=== PATIENT | female | born 1965 | race Caucasian/White ===

== ENCOUNTER 2020-11-25 11:11 | Outpatient (REF) | payer OTHER, SELFPAY | END 2020-11-25 11:12 | disposition home or self-care (01) | LOC: HO.LAB 11:11 | PROVIDERS: PCP Internal Medicine; Visit Provider Internal Medicine | DX: Z20.822 Contact with and (suspected) exposure to COVID-19 (principal) | CPT/HCPCS: C9803; U0003; U0005 ==

== ENCOUNTER 2022-01-31 14:10 | Emergency (ER) | payer OTHER, SELFPAY ==
[2022-01-31 15:57] VITALS: BP 135/96; PULSE 88; RESP 18; TEMP 36.4; O2SAT 96; BMI 25.7
--- NOTE | 2022-01-31 15:59 | ED.GENADULT ---
HPI - General Adult General Chief complaint: General Medical <ROSALINDA Edgar Last Filed: 01/31/22 16:00> Stated complaint: boil removal <ROSALINDA Edgar Last Filed: 01/31/22 16:00> Time Seen by Provider: 01/31/22 16:13 <ROSALINDA Edgar Last Filed: 01/31/22 16:00> Source: patient <ROSALINDA Edgar Last Filed: 01/31/22 16:00> Mode of arrival: ambulatory <ROSALINDA Edgar Last Filed: 01/31/22 16:00> Limitations: no limitations <ROSALINDA Edgar Last Filed: 01/31/22 16:00> History of Present Illness HPI narrative: 48-year-old female with no significant past medical history presenting to the ED complaining boil to left buttocks x1 week. Denies drainage from area, fever/chills, difficulty/inability to have BM or urinate, hematuria, bloody BMs, abdominal pain <ROSALINDA Mustafa Last Filed: 01/31/22 19:11> Onset (ago): week(s) <ROSALINDA Mustafa Last Filed: 01/31/22 19:11> Related Data Home medications: Previous Rx's Medication Instructions Recorded cephalexin 500 mg capsule 500 mg PO QID 7 days #28 caps 01/31/22 doxycycline hyclate 100 mg tablet 100 mg PO BID 7 days #14 tabs 01/31/22 <ROSALINDA Edgar Last Filed: 01/31/22 16:00> Allergies/adverse reactions: Allergies Allergy/AdvReac Type Severity Reaction Status Date / Time erythromycin base Allergy Unknown VOMITING Unverified 11/22/19 17:01 [ERYTHROMYCIN BASE] <ROSALINDA Edgar Last Filed: 01/31/22 16:00> Review of Systems Review of Systems: Constitutional: No Fever, No Chills,No Fatigue, No Malaise ENT/Mouth: No Ear Pain, No Nasal Congestion, No sore throat, No Rhinorrhea, No Swallowing Difficulty Eyes: No Eye Pain, No Swelling, No Redness, No Vision Changes Cardiovascular: No Chest Pain, No SOB, No Edema, No Palpitations Respiratory: No Cough, No Dyspnea Gastrointestinal: No Nausea, No Vomiting, No Constipation, No Abdominal pain Genitourinary: No irregular bleeding, No Dysuria, No Hematuria, No Flank Pain, No Urinary Flow Changes Musculoskeletal: No joint pain, No Myalgias, No Joint Swelling Skin: + Skin Lesions, No rash Neuro: No Weakness, No Numbness, No Paresthesias, No Loss of Consciousness, No Dizziness, No Headache <ROSALINDA Mustafa Last Filed: 01/31/22 19:11> Yes all other systems are reviewed and are negative <ROSALINDA Mustafa Last Filed: 01/31/22 19:11> Constitutional: Constitutional: Reports as per HPI <ROSALINDA Mustafa Last Filed: 01/31/22 19:11> [facility] Past Medical History Attestation statement: The following information was validated with the patient. <ROSALINDA Mustafa Last Filed: 01/31/22 19:11> Social History Social History: Social History Alcohol intake: former Smoked in Last 30 Days: Yes Advance Directives: No Advance Directives Information Provided: No Patient : No <ROSALINDA Edgar Last Filed: 01/31/22 16:00> Physical Exam ED Vital Signs: Vital Signs - 24 hr 01/31/22 15:57 Temperature 97.6 F Pulse Rate 88 Respiratory Rate 18 Blood Pressure 135/96 H Pulse Oximetry 96 Oxygen Delivery Method Room Air BMI result Body Mass Index 25.7 <ROSALINDA Edgar Last Filed: 01/31/22 16:00> Vital Signs - 24 hr 01/31/22 15:57 Temperature 97.6 F Pulse Rate 88 Respiratory Rate 18 Blood Pressure 135/96 H Pulse Oximetry 96 Oxygen Delivery Method Room Air BMI result Body Mass Index 25.7 <ROSALINDA Mustafa Last Filed: 01/31/22 19:11> Const General: cooperative, healthy appearing and no acute distress <ROSALINDA Mustafa Last Filed: 01/31/22 19:11> Orientation/consciousness: patient oriented x3 <ROSALINDA Mustafa Last Filed: 01/31/22 19:11> Limitations: no limitations <ROSALINDA Mustafa Last Filed: 01/31/22 19:11> HENMT Head: Yes normal to inspection and Yes atraumatic <Lizbeth Greenwoodliliam [place] - Last Filed: 01/31/22 19:11> Ears: hearing grossly normal bilaterally <Lizbeth Greenwoodliliam [place] - Last Filed: 01/31/22 19:11> General nose exam: Normal external nose present <Lizbeth Timoliliam [facility] Last Filed: 01/31/22 19:11> Face and sinus: Yes normal facial exam <Lizbeth Greenwoodliliam [facility] Last Filed: 01/31/22 19:11> Eyes General: appearance normal, both eyes and all related structures <Lizbeth Timoliliam [facility] Last Filed: 01/31/22 19:11> EOM: EOMs intact bilaterally <Lizbeth Greenwoodliliam [facility] Last Filed: 01/31/22 19:11> Neck Neck: Yes normal visual inspection and Yes no meningeal signs <Lizbeth Timoliliam [place] - Last Filed: 01/31/22 19:11> Resp Effort & Inspection: normal respiratory effort and no respiratory distress <Lizbeth Greenwoodliliam [facility] Last Filed: 01/31/22 19:11> Cardio Rate: regular rate <Lizbeth Greenwoodliliam [facility] Last Filed: 01/31/22 19:11> Heart sounds: S1 normal heart sound present and S2 normal heart sound present <Lizbeth Greenwoodliliam [facility] Last Filed: 01/31/22 19:11> GI Other: + fluctuant pointing abscess noted to left buttock. No appreciable induration. No rectal involvement. No surrounding cellulitis <Lizbeth Timoliliam [facility] Last Filed: 01/31/22 19:11> Inspection: Yes normal to inspection <Lizbeth Timoliliam [facility] Last Filed: 01/31/22 19:11> Palpation (GI): Soft to palpation, nontender, no guarding and not rigid <Lizbeth Timoliliam [facility] Last Filed: 01/31/22 19:11> Skin Rashes: no rashes <Lizbeth Timoliliam [facility] Last Filed: 01/31/22 19:11> Wounds: no wounds <Lizbeth Timoliliam [facility] Last Filed: 01/31/22 19:11> Neuro General: patient oriented x3, tone normal and no meningeal signs <ROSALINDA Mustafa Last Filed: 01/31/22 19:11> Gait exam (Neuro): Normal gait present <ROSALINDA Mustafa Last Filed: 01/31/22 19:11> Extrem General: Yes normal to inspection <ROSALINDA Mustafa Last Filed: 01/31/22 19:11> Course Course Course Narrative: RME performed by Paola Ambrose PA-C. Patient is a 56 year old female with an abscess on her buttock. Patient placed back in waiting room pending bed availability for a possible I&D. <ROSALINDA Edgar Last Filed: 01/31/22 16:00> Medications Administered Discontinued Medications Generic Name Dose Route Start Last Admin Trade Name Freq PRN Reason Stop Dose Admin Lidocaine HCl 2 ml 01/31/22 16:37 01/31/22 18:07 Lidocaine Hcl 1 % Mpf 2 Ml Vial INFILTRATI 01/31/22 16:38 2 ml ONCE ONE Administration Lidocaine HCl 2 ml 01/31/22 16:37 01/31/22 18:07 Lidocaine Hcl 1 % Mpf 2 Ml Vial INFILTRATI 01/31/22 16:38 2 ml ONCE ONE Administration Lidocaine HCl 2 ml 01/31/22 16:38 01/31/22 18:07 Lidocaine Hcl 1 % Mpf 2 Ml Vial INFILTRATI 01/31/22 16:39 2 ml ONCE ONE Administration <ROSALINDA Edgar Last Filed: 01/31/22 16:00> Medications Administered Discontinued Medications Generic Name Dose Route Start Last Admin Trade Name Freq PRN Reason Stop Dose Admin Lidocaine HCl 2 ml 01/31/22 16:37 01/31/22 18:07 Lidocaine Hcl 1 % Mpf 2 Ml Vial INFILTRATI 01/31/22 16:38 2 ml ONCE ONE Administration Lidocaine HCl 2 ml 01/31/22 16:37 01/31/22 18:07 Lidocaine Hcl 1 % Mpf 2 Ml Vial INFILTRATI 01/31/22 16:38 2 ml ONCE ONE Administration Lidocaine HCl 2 ml 01/31/22 16:38 01/31/22 18:07 Lidocaine Hcl 1 % Mpf 2 Ml Vial INFILTRATI 01/31/22 16:39 2 ml ONCE ONE Administration <ROSALINDA Mustafa - Last Filed: 01/31/22 19:11> Procedures Abscess I/D Site: other (left buttock) <ROSALINDA Mustafa - Last Filed: 01/31/22 19:11> Local Anesthetic: lidocaine 1% <ROSALINDA Mustafa - Last Filed: 01/31/22 19:11> Amount of anesthesia used (mL): 4 <ROSALINDA Mustafa - Last Filed: 01/31/22 19:11> Technique: incised with blade <ROSALINDA Mustafa - Last Filed: 01/31/22 19:11> Sent for culture/gram staining?: No <ROSALINDA Mustafa - Last Filed: 01/31/22 19:11> Packing used?: none <ROSALINDA Mustafa - Last Filed: 01/31/22 19:11> Complications: pain <ROSALINDA Mustafa - Last Filed: 01/31/22 19:11> Medical Decision Making MDM Narrative Medical decision making narrative: 48-year-old female with no significant past medical history presenting to the ED complaining boil to left buttocks x1 week. On exam vital signs stable, NAD, nontoxic appearing, physical exam as above with noted pointing fluctuant abscess to left buttock. No appreciable rectal involvement. Low suspicion for perirectal abscess, no evidence of Trang's gangrene Plan: I & D <ROSALINDA Mustafa - Last Filed: 01/31/22 19:11> Medical Records Medical records reviewed: Yes I reviewed the patient's medical records. <ROSALINDA Mustafa - Last Filed: 01/31/22 19:11> Lab Data Lab results reviewed: Yes I reviewed the patient's lab results. <ROSALINDA Mustafa Last Filed: 01/31/22 19:11> Discharge Plan Discharge Clinical Impression: Abscess <ROSALINDA Edgar - Last Filed: 01/31/22 16:00> Patient Disposition: Home, Self-Care <ROSALINDA Edgar Last Filed: 01/31/22 16:00> Instructions: Abscess (ED), Abscess Follow-up (ED) <ROSALINDA Edgar Last Filed: 01/31/22 16:00> Additional Instructions: Your abscess was drained today in the emergency department. Doxycycline & Keflex are antibiotics please take as prescribed Apply warm compresses/Sitz baths at home to help continue drainage. It is normal for to drain for the next 24-48 hours. If it recollects, continues to drain pus, you have fever, you are unable to have a bowel movement or urinate return to the emergency department <ROSALINDA Edgar - Last Filed: 01/31/22 16:00> Prescriptions: New cephalexin 500 mg capsule 500 mg PO QID 7 Days Qty: 28 0RF doxycycline hyclate 100 mg tablet 100 mg PO BID 7 Days Qty: 14 0RF <ROSALINDA Edgar - Last Filed: 01/31/22 16:00> Referrals: Guille More MD [Primary Care Provider] - 3 days <ROSALINDA Egdar - Last Filed: 01/31/22 16:00> Interventions: ED Discharge Assessment Last Done: 01/31/22 18:12 <ROSALINDA Edgar - Last Filed: 01/31/22 16:00> Discharge Date/Time: 01/31/22 18:13 <ROSALINDA Edgar - Last Filed: 01/31/22 16:00>
[2022-01-31] MEDS: Lidocaine HCl 1 % MPF 2 ML VIAL INFILTRATI ×3 (18:07)
--- NOTE | 2022-01-31 18:10 | PC.NURSE ---
patient a/ox4 . went over discharge instructions as ordered by provider . patient educated to complete dull course of antibiotics . no questions at this time .
== END 2022-01-31 18:13 | disposition home or self-care (01) ==
PROVIDERS: Emergency Provider Emergency Medicine; PCP Internal Medicine
DX: L02.31 Cutaneous abscess of buttock (principal); Z79.899 Other long term (current) drug therapy
CPT/HCPCS: 10060; 99283; 99284

== ENCOUNTER → 2022-07-21 13:56 | Outpatient (BNVA) | payer OTHER, SELFPAY | PROVIDERS: PCP Internal Medicine; Visit Provider Orthopaedic Surgery | DX: M65.331 Trigger finger, right middle finger (principal); M72.0 Palmar fascial fibromatosis [Dupuytren] | CPT/HCPCS: 20550; J1100 ==

== ENCOUNTER 2024-05-03 10:23 | Emergency (ER) | payer OTHER, SELFPAY ==
--- NOTE | ~2024-05-03 | XR_ITS ---
EXAMINATION: XR FOOT, RIGHT CLINICAL INFORMATION: concern for osteo of 5th toe COMPARISON: None available. TECHNIQUE: AP, lateral, and oblique views of the right foot. FINDINGS: No fracture, dislocation, or suspicious bone lesion. Normal bone mineralization. No focal osteopenia or permeative type bone changes to suggest radiographic changes of osteomyelitis. Normal alignment. Joint spaces of the foot are preserved. No significant arthropathy. Normal plantar arch. Incidental note made of degenerative tibiotalar joint changes. No significant joint effusion. Soft tissues demonstrate no definite soft tissue gas. No radiopaque foreign body. There is mild dorsal soft tissue swelling over the forefoot. XR/XR foot RT min 3V IMPRESSION: 1. No radiographic evidence of osteomyelitis. 2. No acute bony findings of the right foot. 3. Minimal dorsal soft tissue swelling of the forefoot. Electronically signed by: Justo Estrada MD 05/03/2024 01:00 PM [facility] [place]
[2024-05-03 10:35] VITALS: BP 143/50; PULSE 83; RESP 18; TEMP 36.5; O2SAT 96; BMI 24.8
--- NOTE | 2024-05-03 11:49 | ED.GENADULT ---
HPI - General Adult General Chief complaint: Wound/Laceration Stated complaint: foot swelling, pain Time Seen by Provider: 05/03/24 11:48 Source: patient Mode of arrival: ambulatory Limitations: no limitations History of Present Illness ED Provider: Paola Ambrose PA-C HPI narrative: Patient is a 58 year old assigned female at with a history of DM and neuropathy presenting to the emergency department today with a right foot wound. Patient states that she had cellulitis of the right foot in March, given doxycycline, and it only mildly improved then an ulceration appeared. Patient denies any dizziness, lightheadedness, abdominal pain, nausea, vomiting, fever, chills, blurry vision, double vision, loss of vision, chest pain, difficulty breathing, shortness of breath, back pain, night sweats, pain with urination, increased urinary frequency, increased urinary urgency, blood in her urine or stool, syncope or a near syncopal episode, recent trauma or falls, bowel incontinence, bladder incontinence, or any other complaints at this time. Relieving factors: none Exacerbating factors: none Associated symptoms: denies other symptoms Treatments prior to arrival: none Related Data Home Medications ?Medication ?Instructions ?Recorded ?Confirmed atorvastatin 10 mg tablet 10 mg PO DAILY 07/21/22 insulin glargine 100 unit/mL 10 unit subcut DAILY 07/21/22 subcutaneous cartridge melatonin 5 mg capsule mg PO 07/21/22 pantoprazole 40 mg tablet,delayed 40 mg PO DAILY 07/21/22 release pregabalin 25 mg capsule 25 mg PO DAILY 07/21/22 Previous Rx's ?Medication ?Instructions ?Recorded cephalexin 500 mg capsule 500 mg PO Q6H 7 days #28 caps 05/03/24 doxycycline hyclate 100 mg tablet 100 mg PO BID 7 days #14 tabs 05/03/24 Allergies Allergy/AdvReac Type Severity Reaction Status Date / Time erythromycin base Allergy Unknown VOMITING Verified 05/03/24 14:25 [ERYTHROMYCIN BASE] Review of Systems Constitutional: Constitutional: Reports no additional constitutional complaints, Denies chills, Denies fever(s) and Denies night sweats Eyes: Eyes: Reports no additional eye complaints, Denies blurry vision, Denies change in vision, Denies diplopia, Denies eye discharge, Denies loss of vision and Denies eye pain ENT: Denies dizziness Cardiovascular: Cardiovascular: Reports no additional cardiovascular complaints, Denies chest pain, Denies lightheadedness, Denies Loss of Consciousness and Denies dyspnea Respiratory: Respiratory: Reports no additional respiratory complaints and Denies dyspnea Gastrointestinal: Gastrointestinal: Reports no additional gastrointestinal complaints, Denies abdominal pain, Denies melena, Denies hematochezia, Denies change in bowel habits and Denies change in stool character Genitourinary: Genitourinary: Denies hematuria, Denies urinary frequency, Denies dysuria, Denies urinary incontinence, Denies urinary hesitancy and Denies urinary urgency Musculoskeletal: Musculoskeletal: Reports no additional musculoskeletal complaints, Denies numbness and Denies tingling Comments: right 5th toe pain, redness, ulceration Neurologic: Denies dizziness, Denies loss of vision, Denies numbness and Denies tingling Psychiatric: Psychiatric: Reports no additional psychiatric complaints Endocrine: Endocrine: Reports no additional endocrine complaints Hematologic/Lymphatic: Hematologic/Lymphatic: Reports no additional hematologic/lymphatic complaints Allergic/Immunologic: Allergic/Immunologic: Reports no additional allergic/immunologic complaints PMFSH Past Medical History Attestation statement: The following information was validated with the patient. Source: old records reviewed and nursing notes reviewed Medical History Neuropathy High cholesterol Barretts syndrome Diabetes Social History Social History Alcohol intake: former Advance Directives: No Advance Directives Information Provided: Yes Current occupational status: unemployed and disabled Current occupation: rt hand Physical Exam ED Vital Signs: Vital Signs - 24 hr 05/03/24 10:35 05/03/24 11:51 05/03/24 14:27 Temperature 97.7 F 98.0 F 98.1 F Pulse Rate 83 78 77 Respiratory Rate 18 18 16 Blood Pressure 143/50 H 152/54 H 144/77 H Pulse Oximetry 96 94 98 Oxygen Delivery Method Room Air Room Air Room Air 05/03/24 14:32 Temperature 98.1 F Pulse Rate 77 Respiratory Rate 16 Blood Pressure 144/77 H Pulse Oximetry 98 Oxygen Delivery Method Room Air BMI result Body Mass Index 24.8 Const General: cooperative, no acute distress, alert and awake Nutritional Appearance: well nourished Orientation/consciousness: patient oriented x3 Limitations: no limitations HENMT Head: Yes normal to inspection and Yes atraumatic Ears: hearing grossly normal bilaterally and external ears normal General nose exam: Normal external nose present, no nasal discharge noted and no epistaxis Face and sinus: Yes normal facial exam, No abrasion and No laceration Mouth: Normal oral and palatal mucosa present, no drooling and no muffled voice Eyes General: appearance normal, both eyes and all related structures Periorbital: periorbital findings normal Eyelids: Yes eyelids normal Conjunctivae: conjunctivae normal Pupils: Equal, round and reactive pupils present EOM: EOMs intact bilaterally Neck Neck: Yes normal visual inspection, Yes full ROM and Yes no lymphadenopathy Chest Chest palpation & inspection: normal inspection of the chest Resp Effort & Inspection: normal respiratory effort and able to speak in complete sentences GI Inspection: Yes normal to inspection Neuro General: patient oriented x3, moves all extremities and CN's II-XI intact bilaterally Cranial nerves: Yes Equal, round and reactive pupils present Cognition (Neuro): normal cognition Extrem Other: General: Yes full ROM and Yes capillary refill normal Psych Appearance: grossly normal Mental Status: mental status grossly normal Affect: normal affect Attitude: cooperative Thought process: Normal thought process present Thought content: Normal thought content present Insight: Good insight present (Psych) Medications Administered Discontinued Medications Generic Name Dose Route Start Last Admin Trade Name Freq PRN Reason Stop Dose Admin Zinc Oxide 1 appl 05/03/24 13:06 05/03/24 14:26 Zinc Oxide 20% Ointment 28.35 Gm Tube TOPICAL 05/03/24 13:07 1 appl ONCE ONE Administration Protocol Medical Decision Making Medical Decision Making MDM Narrative: Patient is a 58 year old assigned female at with a history of DM and neuropathy presenting to the emergency department today with a right foot wound. Patient's physical exam was as noted in the physical exam portion of this note. Patient's blood work showed an elevated WBC count but normal ESR and CRP. Patient's right foot x-ray showed no acute process. I explained my physical exam findings as well as all test results to the patient. I answered all questions asked by the patient. I spoke to Dr. Rodgers, the general surgeon, who recommended placing silver alginate over and into the wound, zinc oxide around the wound, placing gauze over top of that - and wrapping it with instructions to change the dressing every other day. I dressed the patient's wound as directed and provided the patient with supplies for dressing changes. I put the patient in a post op shoe to keep the patient from rubbing against the ulcerated area or the rest of her toes. I stressed the importance of the patient taking her medication as directed (either prescribed or as the over the counter packaging recommends). I stressed the importance of the patient following up with her primary care provider and the wound center. I stressed the importance of the patient returning to the emergency department immediately if her symptoms were to worsen or if she were to develop any dizziness, shortness of breath, difficulty breathing, chest pain, blurry vision, loss of vision, nausea, vomiting, abdominal pain, fever, chills, back pain, or any other complaints. Patient verbalized agreement and understanding with this treatment plan and discharge. Differential Diagnosis Differential Diagnoses: The differential diagnosis associated with the presentation includes Right 5th toe cellulitis Right foot pain Right foot wound Admission/Observation Consideration of admission/observation: Escalation of care including admission/observation considered Patient would have been admitted to the hospital had her work up had any findings where hospital admission was appropriate and her clinical presentation warranted hospital admission. Consult Healthcare Provider Management of the patient was discussed with: Laboratory Animal Care Veterinarian (Spoke to Dr. Rodgers as noted in the MDM Rationale portion of this note.) Lab Data [facility] Lab Attestation statement: I reviewed the patient's lab results. My interpretation of these results are in the MDM Rationale portion of this note. 05/03/24 12:11 05/03/24 12:11 Labs: Lab Results 05/03/24 Range/Units 12:11 WBC 16.0 H (4.8-10.8) X10*3/uL RBC 4.27 (4.20-5.50) X10*6/uL Hgb 13.6 (12.0-16.0) g/dl Hct 39.8 (37.0-47.0) % MCV 93.2 (80.0-98.0) fL MCH 31.9 (27.0-33.0) pg MCHC 34.2 (31.0-35.0) g/dl RDW 13.0 (11.0-16.0) % Plt Count 279 (160-400) X10*3/uL MPV 9.7 (9.4-12.3) fL Immature Gran % (Auto) 0.4 (0.0-0.4) % Neut % (Auto) 67.2 (45-73) % Lymph % (Auto) 23.2 (20-40) % [place] % (Auto) 6.1 (2-11) % Eos % (Auto) 2.2 (0-4) % Baso % (Auto) 0.9 (0-2) % Lymph # (Auto) 3.7 (1.2-4.9) X10*3/uL [place] # (Auto) 1.0 (0.1-1.2) X10*3/uL Eos # (Auto) 0.4 (0.0-0.4) X10*3/uL Baso # (Auto) 0.2 (0.0-0.2) X10*3/uL Abs Immat Gran (auto) 0.07 H (0.00-0.03) X10*3/uL Absolute Neuts (auto) 10.7 H (2.0-8.3) x10*3/uL Absolute Nucleated RBC 0.000 (0.0-0.012) X10*3/uL Nucleated RBC % (auto) 0.0 (0.0-0.2) /100WBC ESR 14 (0-20) MM/HR Sodium 140 (135-145) mmol/L Potassium 4.9 (3.3-5.1) mmol/L Chloride 107 (96-108) mmol/L Carbon Dioxide 28 (22-29) mmol/L Anion Gap 10 L (12-20) BUN 16 (9-16) mg/dL Creatinine 0.79 (0.5-1.4) mg/dL Estim Creat Clear Calc 65.4 Estimated GFR > 60 Random Glucose 303 H (60-115) mg/dL Calcium 9.6 (8.4-10.2) mg/dL Total Bilirubin 0.5 (0.0-1.0) mg/dL AST 19 (5-31) U/L ALT 16 (0-31) U/L Alkaline Phosphatase 57 (39-117) U/L C-Reactive Protein 0.15 (< or = 0.50) mg/dL Total Protein 6.7 (6.5-8.0) g/dL Albumin 3.6 (3.5-5.0) g/dL Independent Interpretation I performed an independent interpretation of an: Plain X-Ray Interpretation: My interpretation is in agreement with the radiologist's impression of this imaging study. EXAMINATION: XR FOOT, RIGHT CLINICAL INFORMATION: concern for osteo of 5th toe COMPARISON: None available. TECHNIQUE: AP, lateral, and oblique views of the right foot. FINDINGS: No fracture, dislocation, or suspicious bone lesion. Normal bone mineralization. No focal osteopenia or permeative type bone changes to suggest radiographic changes of osteomyelitis. Normal alignment. Joint spaces of the foot are preserved. No significant arthropathy. Normal plantar arch. Incidental note made of degenerative tibiotalar joint changes. No significant joint effusion. Soft tissues demonstrate no definite soft tissue gas. No radiopaque foreign body. There is mild dorsal soft tissue swelling over the forefoot. XR/XR foot RT min 3V IMPRESSION: 1. No radiographic evidence of osteomyelitis. 2. No acute bony findings of the right foot. 3. Minimal dorsal soft tissue swelling of the forefoot. Electronically signed by: Justo Estrada MD 05/03/2024 01:00 PM [facility] Dictated By: Justo Estrada MD Signed By: Electronically signed by Justo Estrada MD 05/03/24 1300 Radiology Impression Discussion of test interpretation with radiology: I have reviewed the radiologist's reading. Prescription Management I considered prescription management with: Antibiotic (patient prescribed antibiotics for right 5th toe cellulitis) Chronic Conditions Patient?s care impacted by: Diabetes Discharge Plan Discharge Clinical Impression: Diabetic foot ulcer, Cellulitis Patient Disposition: Home, Self-Care Instructions: Cellulitis (DC), Diabetic Foot Ulcers (ED) Additional Instructions: Change your dressing every other day (next change on ). Apply the silver alginate dressing ONTO / INTO the wound. Apply the Zinc Oxcide AROUND the edges of the wound but NOT in the wound. Cover the entire area with gauze and wrap it. Wear the post op shoe when walking and BE SURE TO COVER YOUR TOES TO AVOID THE BOOT RUBBING THERE. Follow up with your primary care provider and the wounder center. Take your antibiotics as prescribed. Return to the emergency department immediately if your symptoms worsen or if you develop any dizziness, shortness of breath, difficulty breathing, chest pain, blurry vision, loss of vision, nausea, vomiting, abdominal pain, fever, chills, back pain, or any other complaints. Prescriptions: New cephalexin 500 mg capsule 500 mg PO Q6H 7 Days Qty: 28 0RF doxycycline hyclate 100 mg tablet 100 mg PO BID 7 Days Qty: 14 0RF No Action insulin glargine 100 unit/mL cartridge 10 unit subcut DAILY atorvastatin 10 mg tablet 10 mg PO DAILY pregabalin 25 mg capsule 25 mg PO DAILY pantoprazole 40 mg tablet,delayed release (DR/EC) 40 mg PO DAILY melatonin 5 mg capsule PO Referrals: [facility] Family Medicine [Provider Group] (Call to establish and follow up with a primary care provider. If you already have a primary care provider, please follow up with them.) [facility] Primary Care, [facility] [Provider Group] (Call to establish and follow up with a primary care provider. If you already have a primary care provider, please follow up with them.) [facility] Primary Care[facility] [Provider Group] (Call to establish and follow up with a primary care provider. If you already have a primary care provider, please follow up with them.) [facility] Primary Care[facility] [Provider Group] (Call to establish and follow up with a primary care provider. If you already have a primary care provider, please follow up with them.) [facility] Wound Care Management [Provider Group] (Call to establish and follow up with the wound center. ) Interventions: ED Discharge Assessment Last Done: 05/03/24 14:32 Discharge Date/Time: 05/03/24 14:32 Print Language: Jordanian
[2024-05-03 11:51] VITALS: BP 152/54; PULSE 78; RESP 18; TEMP 36.7; O2SAT 94
[2024-05-03 12:14] LABS: MANUAL DIFF FLAG NO
[2024-05-03 12:17] LABS: Basophils Absolute Auto 0.2 X10*3/uL (0.0-0.2); Basophils Percent Auto 0.9 % (0-2); Eosinophils Absolute Auto 0.4 X10*3/uL (0.0-0.4); Eosinophils Percent Auto 2.2 % (0-4); Hematocrit 39.8 % (37.0-47.0); Hemoglobin 13.6 g/dl (12.0-16.0); Imm Gran Abs Auto 0.07 X10*3/uL (0.00-0.03); Imm Gran Pct Auto 0.4 % (0.0-0.4); Lymphocytes Absolute Auto 3.7 X10*3/uL (1.2-4.9); Lymphocytes Percent Auto 23.2 % (20-40); Mean Corpuscular HGB Conc 34.2 g/dl (31.0-35.0); Mean Corpuscular Hemoglobin 31.9 pg (27.0-33.0); Mean Corpuscular Volume 93.2 fL (80.0-98.0); Mean Platelet Volume 9.7 fL (9.4-12.3); Monocytes Percent Auto 6.1 % (2-11); Neutrophils Absolute Auto 10.7 x10*3/uL (2.0-8.3); Neutrophils Percent Auto 67.2 % (45-73); Platelet Count 279 X10*3/uL (160-400); Red Blood Count 4.27 X10*6/uL (4.20-5.50)
[2024-05-03 12:34] LABS: Alanine Aminotransferase 16 U/L (0-31); Albumin Level 3.6 g/dL (3.5-5.0); Alkaline Phosphatase 57 U/L (39-117); Anion Gap 10 (12-20); Aspartate Amino Transferase 19 U/L (5-31); Bilirubin Total 0.5 mg/dL (0.0-1.0); Blood Urea Nitrogen 16 mg/dL (9-16); C Reactive Protein 0.15 mg/dL (< or = 0.50); Calcium 9.6 mg/dL (8.4-10.2); Carbon Dioxide 28 mmol/L (22-29); Chloride 107 mmol/L (96-108); Creatinine Clr Calc Pharmacy 65.4; Estimated Glomerular Filt Rate > 60; Glucose Random 303 mg/dL (60-115); Potassium 4.9 mmol/L (3.3-5.1); Sodium 140 mmol/L (135-145); Total Protein 6.7 g/dL (6.5-8.0)
[2024-05-03 12:55] LABS: Erythrocyte Sedimentation Rate 14 MM/HR (0-20)
[2024-05-03] MEDS: Zinc Oxide 20% Ointment 28.35 GM TUBE 1 APPL TOPICAL (14:26)
--- NOTE | 2024-05-03 14:26 | PC.NURSE ---
post op boot applied to right foot.
[2024-05-03 14:27] VITALS: BP 144/77; PULSE 77; RESP 16; TEMP 36.7; O2SAT 98
[2024-05-03 14:32] VITALS: BP 144/77; PULSE 77; RESP 16; TEMP 36.7; O2SAT 98
--- OUTSIDE RECORDS SUMMARY | 2024-05-03 15:20 | XMS_ITS | Encounter Summary ---
Author Organization [facility] Address [address] [place] [address] Care Team Providers Care Redipper Name Role Phone Guille More MD Primary Care Provider [phone] Encounter Details Date Type Department Care Team (Latest Contact Info) Description 04/03/2024 Lab Requisition [facility] - Main Lab [address] [facility] [place] [address] Senthil Cardoso PA [address] [facility] [address] [place], [place] [id number] Chronic fatigue, unspecified; Mixed hyperlipidemia; Encounter for general adult medical examination with abnormal findings; Type 2 diabetes mellitus without complications (CMS/HCC) Social History Tobacco Use Types Packs/Day Years Used Date Smoking Tobacco: Every Day Smokeless Tobacco: Never Alcohol Use Standard Drinks/Week Comments Yes 0 (1 standard drink = 0.6 oz pur e alcohol) Comments Unknown Sex and Gender Information Value Date Recorded Sex Assigned at Not on file Legal Sex Female 6:32 AM EST Gender Identity Not on file Sexual Orientation Not on file documented as of this encounter Plan of Treatment Not on file documented as of this encounter Procedures Procedure Name Priority Date/Time Associated Diagnosis Comments SST - GOLD Routine 04/03/2024 12:00 AM EST Chronic fatigue, unspecified Mixed hyperlipidemia Encounter for general adult medical examination with abnormal findings Type 2 diabetes mellitus without complications (CMS/HCC) LIPID PANEL WITH REFLEX TO DIRECT LDL Routine 04/03/2024 12:00 AM EST Chronic fatigue, unspecified Mixed hyperlipidemia Encounter for general adult medical examination with abnormal findings Type 2 diabetes mellitus without complications (CMS/HCC) CBC WITH AUTO DIFFERENTIAL Routine 04/03/2024 12:00 AM EST Chronic fatigue, unspecified Mixed hyperlipidemia Encounter for general adult medical examination with abnormal findings Type 2 diabetes mellitus without complications (CMS/HCC) CBC AND DIFFERENTIAL Routine 04/03/2024 12:00 AM EST Chronic fatigue, unspecified Mixed hyperlipidemia Encounter for general adult medical examination with abnormal findings Type 2 diabetes mellitus without complications (CMS/HCC) THYROID STIMULATING HORMONE Routine 04/03/2024 12:00 AM EST Chronic fatigue, unspecified Mixed hyperlipidemia Encounter for general adult medical examination with abnormal findings Type 2 diabetes mellitus without complications (CMS/HCC) THYROXINE FREE Routine 04/03/2024 12:00 AM EST Chronic fatigue, unspecified Mixed hyperlipidemia Encounter for general adult medical examination with abnormal findings Type 2 diabetes mellitus without complications (CMS/HCC) COMPREHENSIVE METABOLIC PANEL Routine 04/03/2024 12:00 AM EST Chronic fatigue, unspecified Mixed hyperlipidemia Encounter for general adult medical examination with abnormal findings Type 2 diabetes mellitus without complications (CMS/HCC) documented in this encounter Results * SST tube (04/03/2024 12:00 AM EST) Extra Tube Hold for add-ons. 04/03/2024 8:01 PM EST [facility] Comment:Auto resulted. Blood Venous blood specimen / Unknown 04/03/2024 04/03/2024 6:01 PM EST us Senthil TELLEZ LAB BLOOD ORDERABLES Final Res ult [facility]) [facility] [address] [place] [address], * (ABNORMAL) CBC auto differential (04/03/2024 12:00 AM EST) WBC 12.2(H) 4.8 - 10.8 K/[facility] LAB HEMETOLOGY METHOD 04/03/2024 7:20 PM [facility] RBC 4.30 3.80 - 4.80 M/mcL LAB HEMETOLOGY METHOD 04/03/2024 7:20 PM [facility] Hemoglobin 13.6 11.5 - 16.0 g/dL LAB HEMETOLOGY METHOD 04/03/2024 7:20 PM [facility] Hematocrit 39.9 35.0 - 47.0 % LAB HEMETOLOGY METHOD 04/03/2024 7:20 PM [facility] MCV 93.4 79.0 - 98.0 FL LAB HEMETOLOGY METHOD 04/03/2024 7:20 PM [facility] MCH 31.9 27.0 - 32.0 pcg LAB HEMETOLOGY METHOD 04/03/2024 7:20 PM [facility] MCHC 34.1 32.0 - 37.0 g/dL LAB HEMETOLOGY METHOD 04/03/2024 7:20 PM [facility] RDW 12.6 11.0 - 15.0 % LAB HEMETOLOGY METHOD 04/03/2024 7:20 PM [facility] Platelets 294 130 - 400 K/mcL LAB HEMETOLOGY METHOD 04/03/2024 7:20 PM [facility] MPV 10.8 7.0 - 11.0 FL LAB HEMETOLOGY METHOD 04/03/2024 7:20 PM [facility] NRBC 0.0 <1.0 % LAB HEMETOLOGY METHOD 04/03/2024 7:20 PM [facility] NRBC Absolute 0.00 <0.10 K/mcL LAB HEMETOLOGY METHOD 04/03/2024 7:20 PM [facility] Neutrophils Relative 54.0 % LAB HEMETOLOGY METHOD 04/03/2024 7:20 PM [facility] Lymphocytes Relative 33.9 % LAB HEMETOLOGY METHOD 04/03/2024 7:20 PM [facility] Monocytes Relative 8.0 % LAB HEMETOLOGY METHOD 04/03/2024 7:20 PM [facility] Eosinophils Relative 2.7 % LAB HEMETOLOGY METHOD 04/03/2024 7:20 PM [facility] Basophils Relative 1.1 % LAB HEMETOLOGY METHOD 04/03/2024 7:20 PM [facility] Immature Granulocytes Relative 0.3 % LAB HEMETOLOGY METHOD 04/03/2024 7:20 PM [facility] Neutrophils Absolute 6.58 1.50 - 7.00 K/mcL LAB HEMETOLOGY METHOD 04/03/2024 7:20 PM [facility] Lymphocytes Absolute 4.13 1.00 - 5.00 K/mcL LAB HEMETOLOGY METHOD 04/03/2024 7:20 PM [facility] Monocytes Absolute 0.98 0.20 - 1.00 K/mcL LAB HEMETOLOGY METHOD 04/03/2024 7:20 PM [facility] Eosinophils Absolute 0.33 0.00 - 0.50 K/mcL LAB HEMETOLOGY METHOD 04/03/2024 7:20 PM [facility] Basophils Absolute 0.13 0.00 - 0.20 K/mcL LAB HEMETOLOGY METHOD 04/03/2024 7:20 PM [facility] Immature Granulocytes Absolute 0.04(H) 0.00 - 0.03 K/mcL LAB HEMETOLOGY METHOD 04/03/2024 7:20 PM [facility] Blood Venous blood specimen / Unknown 04/03/2024 04/03/2024 6:01 PM EST us Senthil TELLEZ LAB BLOOD ORDERABLES Final Res ult [facility] [address] [place] [address], [place] [phone] * Thyroid stimulating hormone (04/03/2024 12:00 AM EST) TSH 2.00 0.40 - 4.00 mcIU/mL LAB CHEMISTRY METHOD 04/03/2024 7:20 PM EST [facility] Blood Venous blood specimen / Unknown 04/03/2024 04/03/2024 6:01 PM EST us Senthil TELLEZ LAB BLOOD ORDERABLES Final Res ult Performing Organization Address [facility]/ZIP Co de Phone Number [facility] [address] [place] [address], [place] [phone] * Thyroxine free (04/03/2024 12:00 AM EST) [facility] Free T4 0.98 0.70 - 1.80 ng/dL LAB CHEMISTRY METHOD 04/03/2024 7:20 PM EST [facility] Blood Venous blood specimen / Unknown 04/03/2024 04/03/2024 6:01 PM EST us Senthil TELLEZ LAB BLOOD ORDERABLES Final Res ult Performing Organization Address [facility]/ZIP Co de Phone Number [facility] [address] [place] [address], [place] [phone] * Lipid panel with reflex to direct LDL (04/03/2024 12:00 AM EST) Pathologist [facility] Cholesterol 157 0 - 200 mg/dL LAB CHEMISTRY METHOD 04/03/2024 7:19 PM EST [facility] Triglycerides 88 0 - 150 mg/dL LAB CHEMISTRY METHOD 04/03/2024 7:19 PM EST [facility] HDL 66 >=40 mg/dL LAB CHEMISTRY METHOD 04/03/2024 7:19 PM [facility] LDL Calculated 73 0 - 100 mg/dL LAB CHEMISTRY METHOD 04/03/2024 7:19 PM [facility] VLDL Cholesterol Erich 17.6 mg/dL LAB CHEMISTRY METHOD 04/03/2024 7:19 PM [facility] Non HDL Chol. (LDL+VLDL) 91 <145 mg/dL LAB CHEMISTRY METHOD 04/03/2024 7:19 PM [facility] Chol/HDL Ratio 2.4 0.0 - 4.4 LAB CHEMISTRY METHOD 04/03/2024 7:19 PM [facility] Blood Venous blood specimen / Unknown 04/03/2024 04/03/2024 6:01 PM EST us Senthil TELLEZ LAB BLOOD ORDERABLES Final Res ult [facility] [address] [place] [address], [place] [phone] * Comprehensive metabolic panel (04/03/2024 12:00 AM EST) Sodium 140 133 - 145 mmol/L LAB CHEMISTRY METHOD 04/03/2024 7:24 PM [facility] Comment:Results verified by repeat testing Potassium 5.0 3.5 - 5.5 mmol/L LAB CHEMISTRY METHOD 04/03/2024 7:24 PM [facility] Chloride 107 96 - 110 mmol/L LAB CHEMISTRY METHOD 04/03/2024 7:24 PM [facility] CO2 30 21 - 32 mmol/L LAB CHEMISTRY METHOD 04/03/2024 7:24 PM [facility] Anion Gap 3 3 - 11 LAB CHEMISTRY METHOD 04/03/2024 7:24 PM [facility] Glucose 75 70 - 100 mg/dL LAB CHEMISTRY METHOD 04/03/2024 7:24 PM [facility] BUN 12 5 - 25 mg/dL LAB CHEMISTRY METHOD 04/03/2024 7:24 PM [facility] Creatinine 0.73 0.50 - 1.10 mg/dL LAB CHEMISTRY METHOD 04/03/2024 7:24 PM [facility] eGFR 94 >=60 mL/min/1. 73m2 LAB CHEMISTRY METHOD 04/03/2024 7:24 PM [facility] Comment:Calculation based on the??Chronic Kidney Disease Epidemiology Collaboration (CKD-EPI) equation refit??without adjustment for race. BUN/Creatinine Ratio 16.4 LAB CHEMISTRY METHOD 04/03/2024 7:24 PM [facility] Calcium 9.8 8.5 - 10.5 mg/dL LAB CHEMISTRY METHOD 04/03/2024 7:24 PM [facility] AST (SGOT) 23 10 - 42 unit/L LAB CHEMISTRY METHOD 04/03/2024 7:24 PM [facility] ALT (SGPT) 32 10 - 60 unit/L LAB CHEMISTRY METHOD 04/03/2024 7:24 PM [facility] Alkaline Phosphatase 64 42 - 121 unit/L LAB CHEMISTRY METHOD 04/03/2024 7:24 PM [facility] Total Protein 7.0 6.0 - 8.0 g/dL LAB CHEMISTRY METHOD 04/03/2024 7:24 PM [facility] Albumin 3.9 3.2 - 5.0 g/dL LAB CHEMISTRY METHOD 04/03/2024 7:24 PM [facility] Total Bilirubin 0.6 0.0 - 1.4 mg/dL LAB CHEMISTRY METHOD 04/03/2024 7:24 PM [facility] Blood Venous blood specimen / Unknown 04/03/2024 04/03/2024 6:01 PM EST us Senthil TELLEZ LAB BLOOD ORDERABLES Final Res ult [facility] [address] [place] [address], documented in this encounter Visit Diagnoses Diagnosis Chronic fatigue, unspecified Mixed hyperlipidemia Encounter for general adult medical examination with abnormal findings Type 2 diabetes mellitus without complications (CMS/HCC) documented in this encounter Care Teams Redipper Relationship Specialty Start Date End Date Guille More MD [address] [address] PCP - General Internal Medicine 01/19/24 documented as of this encounter
--- OUTSIDE RECORDS SUMMARY | 2024-05-03 15:20 | XMS_ITS | Encounter Summary ---
Author Organization [facility] Address [address] [place] [address] Care Team Providers Care I&C Technician Name Role Phone Guille More MD Primary Care Provider [phone]- [phone] Encounter Details Date Type Department Care Team (Latest Contact Info) Description 04/03/2024 2:52 PM EST - 04/03/2024 11:59 PM EST Hospital Encounter [facility] [address] [place] [address] Other specified symptoms and signs involving the circulatory and respiratory systems Discharge Disposition: Home or Self Care Social History Tobacco Use Types Packs/Day Years [...] on file documented as of this encounter Discharge Disposition Disposition Code Departure Means Destination Home or Self Care documented in this encounter Plan of Treatment Not on file documented as of this encounter Procedures Procedure Name Priority Date/Time Associated Diagnosis Comments XR CHEST 2 VIEWS Routine 04/03/2024 3:04 PM EST Other specified symptoms and signs involving the circulatory and respiratory systems documented in this encounter Results * XR Chest 2 Views (04/03/2024 3:04 PM EST) Anatomical Region Laterality Modality Body Radiographic Carmella ging 04/03/2024 4:50 PM EST Impressions 04/03/2024 4:52 PM EST Impression: 1. Mild cardiomegaly. Slight increase in cardiac size since 2020. 2. No active pulmonary process. 3. Distended stomach. [place] ([id number]) -------- FINAL REPORT -------- Dictated By: Shweta Singletary Dictated Date: 04/03/2024 16:50 ET Assigned Physician: Shweta Singletary Reviewed and Electronically Signed By: Shweta Singletary Signed Date: 04/03/2024 16:52 ET Workstation ID: [id number] Transcribed By: Self Edit Transcribed Date: 04/03/2024 16:50 ET Narrative 04/03/2024 4:52 PM EST History: Chest congestion. Comparison: 05/06/20 Findings: PA and lateral views. The cardiac silhouette is mildly enlarged and has increased slightly in size since the previous study. Hilar contours are stable. The pulmonary vascularity is within normal limits. The lungs are clear. The costophrenic angles are sharp. Mild elevation of the left hemidiaphragm is noted, with moderate gaseous distention of the stomach. The regional skeleton is intact. Procedure Note Shweta Singletary MD - 04/03/2024 History: Chest congestion. Comparison: 05/06/20 Findings: PA and lateral views. The cardiac silhouette is mildly enlarged and hasincreased slightly in size since the previous study. Hilar contours arestable. The pulmonary vascularity is within normal limits. The lungs areclear. The costophrenic angles are sharp. Mild elevation of the left hemidiaphragm is noted, with moderate gaseousdistention of the stomach. The regional skeleton is intact. IMPRESSION: Impression: 1. Mild cardiomegaly. Slight increase in cardiac size since 2020. 2. No active pulmonary process. 3. Distended stomach. [place] ([id number]) -------- FINAL REPORT -------- Dictated By: Shweta Singletary Dictated Date: 04/03/2024 16:50 ET Assigned Physician: Shweta Singletary Reviewed and Electronically Signed By: Shweta Singletary Signed Date: 04/03/2024 16:52 ET Workstation ID: [id number] Transcribed By: Self Edit Transcribed Date: 04/03/2024 16:50 ET us Senthil TELLEZ IMG XR PROCEDURES Final Result documented in this encounter Visit Diagnoses Diagnosis Other specified symptoms and signs involving the circulatory and respiratory systems documented in this encounter Care Teams I&C Technician Relationship Specialty Start Date End Date Guille More MD [address] [place] [address] PCP - General Internal Medicine 01/19/24 documented as of this encounter
--- OUTSIDE RECORDS SUMMARY | 2024-05-03 15:20 | XMS_ITS | Clinical Summary ---
Author Organization [facility] Address [address] [place] [address] Phone Care Team Providers Care Supervisor Type Disk Quality Control Name Role Phone Guille Walker MD Primary Care Provider [phone] Encounters Date Type Department Care Team Description 04/03/2024 2:52 PM EST - 04/03/2024 11:59 PM EST Hospital Encounter [facility] Xray [address] [place] [address] Other specified symptoms and signs involving the circulatory and respiratory systems Discharge Disposition: Home or Self Care 04/03/2024 Lab Requisition [facility] - Main Lab [address] [facility] [place] [address] Senthil Cardoso PA Chronic fatigue, unspecified; Mixed hyperlipidemia; Encounter for general adult medical examination with abnormal findings; Type 2 diabetes mellitus without complications (CMS/[facility]) from Last 3 Months Social History Tobacco Use Types Packs/Day Years Used Date Smoking Tobacco: Every Day Smokeless Tobacco: Never Alcohol Use Standard Drinks/Week Comments Yes 0 (1 standard drink = 0.6 oz pur e alcohol) Comments Unknown Sex and Gender Information Value Date Recorded Sex Assigned at Not on file Legal Sex Female 6:32 AM EST Gender Identity Not on file Sexual Orientation Not on file Obstetrics History Plan of Treatment Health Maintenance Due Date Last Done Comments Diabetes: Annual Foot Exam 05/23/1973 Diabetes: Annual Retina Eye Exam 05/23/1973 DTaP,Tdap,and Td Vaccines (1 - Tdap) 05/23/1982 Pneumococcal Vaccine: 50+ Years (1 of 2 - PCV) 05/23/1982 Pneumococcal Vaccine: Pediatrics (0 to 5 Years) and At-Risk Patients (6 to 64 Years) (1 of 2 - PCV) 05/23/1982 Zoster Vaccines (1 of 2) 05/23/1982 Cervical Cancer Screening: P ap Smear 05/23/1984 Colorectal Cancer Screening: Colonoscopy 02/07/2022 Depression Screening 02/07/2022 HIV Screening 02/07/2022 Hepatitis C Screening 02/07/2022 Social Influencers of Health Screening 02/07/2022 Breast Cancer Screening 12/23/2022 12/24/19, 10/17/2018, 08/09/2017 RSV Immunization Patients 60 + Years Old (1 - Risk 60-74 years 1-dose series) 2023 COVID-19 Vaccine (4 - 2023-2 5 season) 2023 04/07/2021, 08/18/2020, 07/28/2020 Influenza Vaccine (#1) 2023 Diabetes: Annual Urine Albumin-Creatinine Ratio (uACR) 01/19/2024 Diabetes: Blood Sugar Contro l Test (HGBA1C) 07/18/2024 01/19/2024 Diabetes: Annual GFR (Glomerular Filtration Rate) 04/03/2025 04/03/2024 Cholesterol Screening (Lipid Panel) 04/03/2029 04/03/2024 HIB Vaccines Aged Out No longer eligi ble based on patient's age to complete this topic HPV Vaccines Aged Out No longer eligi ble based on patient's age to complete this topic Hepatitis A Vaccines Aged Out No long er eligible based on patient's age to complete this topic Hepatitis B Vaccines Aged Out No long er eligible based on patient's age to complete this topic IPV Vaccines Aged Out No longer eligi ble based on patient's age to complete this topic MMR Vaccines Aged Out No longer eligi ble based on patient's age to complete this topic Meningococcal ACWY Vaccine Aged Out N o longer eligible based on patient's age to complete this topic Meningococcal B Vacine Aged Out No lo nger eligible based on patient's age to complete this topic RSV Immunization Patients Under 20 months Aged Out No longer eligible b ased on patient's age to complete this topic Varicella Vaccines Aged Out No longer eligible based on patient's age to complete this topic Procedures Procedure Name Priority Date/Time Associated Diagnosis Comments XR CHEST 2 VIEWS Routine 04/03/2024 3:04 PM EST Other specified symptoms and signs involving the circulatory and respiratory systems SST - GOLD Routine 04/03/2024 12:00 AM [...] Type 2 diabetes mellitus without complications (CMS/HCC) HEMOGLOBIN A1C Routine 01/19/2024 12:00 AM EST Type 2 diabetes mellitus without complications (CMS/HCC) GHAZALA SCREENING DIGITAL Routine 12/23/2020 5:13 PM EDT Encounter for screening mammogram for malignant neoplasm of breast from Last 3 Months or Most Recently Relevant to Health Maintenance Results * XR Chest 2 Views (04/03/2024 3:04 PM EST) Anatomical Region Laterality Modality Body Radiographic Carmella ging 04/03/2024 4:50 PM EST Impressions 04/03/2024 4:52 PM EST Impression: 1. Mild cardiomegaly. Slight increase in cardiac size since 2020. 2. No active pulmonary process. 3. Distended stomach. Telerad PA ([id number]) -------- FINAL REPORT -------- Dictated By: Shweta Singletary Dictated Date: 04/03/2024 16:50 ET Assigned Physician: Shweta Singletary Reviewed and Electronically Signed By: Shweta Singletary Signed Date: 04/03/2024 16:52 ET Workstation ID: [id number] Transcribed By: Self Edit Transcribed Date: 04/03/2024 [...] pulmonary process. 3. Distended stomach. Telerad PA ([id number]) -------- FINAL REPORT -------- Dictated By: Shweta Singletary Dictated Date: 04/03/2024 16:50 ET Assigned Physician: Shweta Singletary Reviewed and Electronically Signed By: Shweta Singletary Signed Date: 04/03/2024 16:52 ET Workstation ID: [id number] Transcribed By: Self Edit Transcribed Date: 04/03/2024 16:50 ET Senthil TELLEZ IMG XR PROCEDURES Final Result * SST tube (04/03/2024 12:00 AM EST) Pathologist [facility] Extra Tube Hold for add-ons. 04/03/2024 8:01 PM EST [facility] Comment:Auto resulted. Blood Venous blood specimen / Unknown 04/03/2024 04/03/2024 6:01 PM EST Senthil TELLEZ LAB BLOOD ORDERABLES Final Res ult [facility] [address] [place] [address], [place] [phone] * Lipid panel with reflex to direct LDL (04/03/2024 12:00 AM EST) Pathologist [facility] Cholesterol 157 0 - 200 mg/dL LAB CHEMISTRY METHOD 04/03/2024 7:19 PM [facility] Triglycerides 88 0 - 150 mg/dL LAB CHEMISTRY METHOD 04/03/2024 7:19 PM [facility] HDL 66 >=40 mg/dL LAB CHEMISTRY METHOD 04/03/2024 7:19 PM [facility] LDL Calculated 73 0 - 100 mg/dL LAB CHEMISTRY METHOD 04/03/2024 7:19 PM [facility] VLDL Cholesterol Erich 17.6 mg/dL LAB CHEMISTRY METHOD 04/03/2024 7:19 PM [facility] Non HDL Chol. (LDL+VLDL) 91 <145 mg/dL LAB CHEMISTRY METHOD 04/03/2024 7:19 PM [facility] Chol/HDL Ratio 2.4 0.0 - 4.4 LAB CHEMISTRY METHOD 04/03/2024 7:19 PM [facility] Blood Venous blood specimen / Unknown 04/03/2024 04/03/2024 6:01 PM EST us Senthil TELLEZ LAB BLOOD ORDERABLES Final Res ult [facility] [address] [place] [address], [place] [phone] * (ABNORMAL) CBC auto differential (04/03/2024 12:00 AM EST) WBC 12.2(H) 4.8 - 10.8 K/mcL LAB HEMETOLOGY METHOD 04/03/2024 7:20 PM [facility] RBC 4.30 3.80 - 4.80 M/mcL LAB HEMETOLOGY METHOD 04/03/2024 7:20 PM [facility] Hemoglobin 13.6 11.5 - 16.0 g/dL LAB HEMETOLOGY METHOD 04/03/2024 7:20 PM [facility] Hematocrit 39.9 35.0 - 47.0 % LAB HEMETOLOGY METHOD 04/03/2024 7:20 PM [facility] MCV 93.4 79.0 - 98.0 FL LAB HEMETOLOGY METHOD 04/03/2024 7:20 PM [facility] MCH 31.9 27.0 - 32.0 pcg LAB HEMETOLOGY METHOD 04/03/2024 7:20 PM [facility] MCHC 34.1 32.0 - 37.0 g/dL LAB HEMETOLOGY METHOD 04/03/2024 7:20 PM [facility] RDW 12.6 11.0 - 15.0 % LAB HEMETOLOGY METHOD 04/03/2024 7:20 PM [facility] Platelets 294 130 - 400 K/mcL LAB HEMETOLOGY METHOD 04/03/2024 7:20 PM [facility] MPV 10.8 7.0 - 11.0 FL LAB HEMETOLOGY METHOD 04/03/2024 7:20 PM [facility] NRBC 0.0 <1.0 % LAB HEMETOLOGY METHOD 04/03/2024 7:20 PM [facility] NRBC Absolute 0.00 <0.10 K/mcL LAB HEMETOLOGY METHOD 04/03/2024 7:20 PM [facility] Neutrophils Relative 54.0 % LAB HEMETOLOGY METHOD 04/03/2024 7:20 PM [facility] Lymphocytes Relative 33.9 % LAB HEMETOLOGY METHOD 04/03/2024 7:20 PM [facility] Monocytes Relative 8.0 % LAB HEMETOLOGY METHOD 04/03/2024 7:20 PM [facility] Eosinophils Relative 2.7 % LAB HEMETOLOGY METHOD 04/03/2024 7:20 PM [facility] Basophils Relative 1.1 % LAB HEMETOLOGY METHOD 04/03/2024 7:20 PM [facility] Immature Granulocytes Relative 0.3 % LAB HEMETOLOGY METHOD 04/03/2024 7:20 PM [facility] Neutrophils Absolute 6.58 1.50 - 7.00 K/mcL LAB HEMETOLOGY METHOD 04/03/2024 7:20 PM [facility] Lymphocytes Absolute 4.13 1.00 - 5.00 K/mcL LAB HEMETOLOGY METHOD 04/03/2024 7:20 PM [facility] Monocytes Absolute 0.98 0.20 - 1.00 K/mcL LAB HEMETOLOGY METHOD 04/03/2024 7:20 PM [facility] Eosinophils Absolute 0.33 0.00 - 0.50 K/[facility] LAB HEMETOLOGY METHOD 04/03/2024 7:20 PM EST [facility] Basophils Absolute 0.13 0.00 - 0.20 K/[facility] LAB HEMETOLOGY METHOD 04/03/2024 7:20 PM EST [facility] Immature Granulocytes Absolute 0.04(H) 0.00 - 0.03 K/[facility] LAB HEMETOLOGY METHOD 04/03/2024 7:20 PM EST [facility] Blood Venous blood specimen / Unknown 04/03/2024 04/03/2024 6:01 PM EST Senthil TELLEZ LAB BLOOD ORDERABLES Final Res ult Performing Organization Address [facility]/ZIP Co de Phone Number [facility] [address] [place] [address], [place] [phone] * Thyroid stimulating hormone (04/03/2024 12:00 AM EST) TSH 2.00 0.40 - 4.00 mcIU/mL LAB CHEMISTRY METHOD 04/03/2024 7:20 PM EST [facility] Blood Venous blood specimen / Unknown 04/03/2024 04/03/2024 6:01 PM EST Senthil TELLEZ LAB BLOOD ORDERABLES Final Res ult [facility] [address] [place] [address], [place] [phone] * Thyroxine free (04/03/2024 12:00 AM EST) Free T4 0.98 0.70 - 1.80 ng/dL LAB CHEMISTRY METHOD 04/03/2024 7:20 PM EST [facility] Blood Venous blood specimen / Unknown 04/03/2024 04/03/2024 6:01 PM EST us Senthil TELLEZ LAB BLOOD ORDERABLES Final Res ult [facility] [address] [place] [address], [place] [phone] * Comprehensive metabolic panel (04/03/2024 12:00 AM EST) Sodium 140 133 - 145 mmol/L LAB CHEMISTRY METHOD 04/03/2024 7:24 PM [facility] Comment:Results verified by repeat testing Potassium 5.0 3.5 - 5.5 mmol/L LAB CHEMISTRY METHOD 04/03/2024 7:24 PM [facility] Chloride 107 96 - 110 mmol/L LAB CHEMISTRY METHOD 04/03/2024 7:24 PM [facility] CO2 30 21 - 32 mmol/L LAB CHEMISTRY METHOD 04/03/2024 7:24 PM [facility] Anion Gap 3 3 - 11 LAB CHEMISTRY METHOD 04/03/2024 7:24 PM [facility] Glucose 75 70 - 100 mg/dL LAB CHEMISTRY METHOD 04/03/2024 7:24 PM [facility] BUN 12 5 - 25 mg/dL LAB CHEMISTRY METHOD 04/03/2024 7:24 PM [facility] Creatinine 0.73 0.50 - 1.10 mg/dL LAB CHEMISTRY METHOD 04/03/2024 7:24 PM [facility] eGFR 94 >=60 mL/min/1. 73m2 LAB CHEMISTRY METHOD 04/03/2024 7:24 PM [facility] Comment:Calculation based on the??Chronic Kidney Disease Epidemiology Collaboration (CKD-EPI) equation refit??without adjustment for race. BUN/Creatinine Ratio 16.4 LAB CHEMISTRY METHOD 04/03/2024 7:24 PM [facility] Calcium 9.8 8.5 - 10.5 mg/dL LAB CHEMISTRY METHOD 04/03/2024 7:24 PM [facility] AST (SGOT) 23 10 - 42 unit/L LAB CHEMISTRY METHOD 04/03/2024 7:24 PM [facility] ALT (SGPT) 32 10 - 60 unit/L LAB CHEMISTRY METHOD 04/03/2024 7:24 PM [facility] Alkaline Phosphatase 64 42 - 121 unit/L LAB CHEMISTRY METHOD 04/03/2024 7:24 PM [facility] Total Protein 7.0 6.0 - 8.0 g/dL LAB CHEMISTRY METHOD 04/03/2024 7:24 PM [facility] Albumin 3.9 3.2 - 5.0 g/dL LAB CHEMISTRY METHOD 04/03/2024 7:24 PM [facility] Total Bilirubin 0.6 0.0 - 1.4 mg/dL LAB CHEMISTRY METHOD 04/03/2024 7:24 PM [facility] Blood Venous blood specimen / Unknown 04/03/2024 04/03/2024 6:01 PM EST us Senthil TELLEZ LAB BLOOD ORDERABLES Final Res ult [facility] [address] [place] [address], * (ABNORMAL) Hemoglobin A1c (01/19/2024 12:00 AM EST) Hemoglobin A1C 8.7(H) <6.5 % LAB CHEMISTRY METHOD 01/19/2024 10:25 PM [facility] Mean Bld Glu Estim. 203 mg/dL LAB CHEMISTRY METHOD 01/19/2024 10:25 PM [facility] Blood Venous blood specimen / Unknown 01/19/2024 01/19/2024 5:35 PM EST us Guille Walker MD LAB BLOOD ORDERABLES Final Result [facility] H[facility] LAB [address] [place] [address], * GHAZALA SCREENING DIGITAL (12/23/2020 5:13 PM EDT) Anatomical Region Laterality Modality Mammography 12/23/2020 12:5 7 PM EDT Narrative 12/23/2020 5:13 PM EDT [facility] Diagnostic Imaging Department [address] [place] [address] Patient: ??VOLODYMYR KAMARA ?/Age/Sex: 1965 - 55 - F Unit#: ??[id number] ? Location/Status: ??SPDIMAM/REG CLI ? Mnemonic/Ordering Site: ??DIGSC/SPMAM Ordering Physician: ??GUILLE WALKER MD Gh[facility]ala Screening Digital - 12/23/201630 History: Bilateral breast cancer screening. ??Family history of breast cancer affecting sister at age 53. ??Previous benign breast biopsies. Technique: Bilateral digital mammography. Conventional CC and MLO projections with tomosynthesis MLO views and computer aided detection. Comparison: [facility] 10/17/2018, dating back to 09/03/2010. Breast density: Breast density: Heterogeneous, potentially obscuring small lesions, category c density (as calculated by Stylectpara software). Findings: Benign calcifications and tissue asymmetries are without concerning interval change. ??There is no suspicious group of microcalcification, suspicious asymmetry, suspicious mass, architectural distortion or concerning change in breast tissue density. Impression: No mammographic evidence of malignancy. BIRADS Category 2: Benign Findings, 3342F 47572, [address] A negative mammogram in the face of a suspicious abnormality does not exclude the possibility of malignancy nor alter the indications for biopsy. Note: Patient information entered ??into a reminder system with a target due date for the next mammogram; PQRI II 7091F Dictating Physician: ??RASHAD REAVES MD Electronically Signed by: ??RASHAD REAVES MD Dic Date/Time: ??12/23/201709 Sign date/Time: ??12/23/201712 Procedure Note Rashad Reaves MD - 02/24/2022 [facility] Diagnostic Imaging Department [address] [place] [address] Patient: YAJAIRAVOLODYMYR D.O.B./Age/Sex: 1965 - 55 - F Unit#: [id number] Location/Status: [facility] CLI Mnemonic/Ordering Site: [facility] Ordering Physician: GUILLE WALKER MD Ghazala Screening Digital - 12/23/20 - 7281 History: Bilateral breast cancer screening. Family history of breastcancer affecting sister at age 53. Previous benign breast biopsies. Technique: Bilateral digital mammography. Conventional CC and MLOprojections with tomosynthesis MLO views and computer aided detection. Comparison: [facility] 10/17/2018, dating back to 09/03/2010. Breast density: Breast density: Heterogeneous, potentially obscuringsmall lesions, category c density (as calculated by Stylectpara software). Findings: Benign calcifications and tissue asymmetries are without concerninginterval change. There is no suspicious group of microcalcification, suspicious asymmetry, suspicious mass, architectural distortion or concerning changein breast tissue density. Impression: No mammographic evidence of malignancy. BIRADS Category 2: Benign Findings, 3342F [address], [address] A negative mammogram in the face of a suspicious abnormality does notexclude the possibility of malignancy nor alter the indications for biopsy. Note: Patient information entered into a reminder system with a targetdue date for the next mammogram; PQRI II 7031F Dictating Physician: RASHAD REAVES MD Electronically Signed by: RASHAD REAVES MD Dic Date/Time: 12/23/201709 Sign date/Time: 12/23/201712 Guille Walker MD IMG BI PROCEDURES Final Res ult from Last 3 Months or Most Recently Relevant to Health Maintenance Insurance [facility] [place] [id number] Care Teams Supervisor Type Disk Quality Control Relationship Specialty Start Date End Date Guille Walker MD [address] [place] [id number] PCP - General Internal Medicine 01/19/24
--- OUTSIDE RECORDS SUMMARY | 2024-05-03 15:21 | XMS_ITS | Continuity of Care Document ---
Author Organization [facility] [address] [place] [address] Phone [phone] Care Team Providers Care Slip Sheeter Name Role Phone Guille More M.D. Care Team Information Re ceiver [phone] Problems Active Problems Provider Date Bilateral cyst of breasts ROSALINDA Curran Ons et: 12/26/2023 Type 1 diabetes mellitus ROSALINDA Curran Onse t: 12/26/2023 Social History Type Date Description Comments Sex Unknown Tobacco Use Start: Unknown Patient is a cur rent cigarette smoker, smokes every day Tobacco Use Reviewed: 12/26/23 Patient is a current cigar smoker, smokes every day Smoking Status Reviewed: 12/26/23 Patient is a current cigar smoker, smokes every day Medications Active Medications SIG Qnty Indications Order ing Provider Date Glucagon Emergency Kit For Low Blood [id number] Kit use 1 injection subcutaneously for low blood sugar as needed per instructions 2units Jessica Isaac M.D. 04/11/2024 Humalog [id number]/ML Solution Pen-Inject inject 6 units subcutaneously before meals 15ml Jessica Isaac M.D. 12/26/2023 Freestyle Garo 2/[place]/Flash Glucose Monitoring Ryioxy1Coyblw Device use as directed with sensors 1unnenita Isaac M.D. 12/26/2023 Freestyle Garo 2/Sensor/Flash Glucose Monitoring Oeafjg1Hntqrz Misc 1 sensor to skin every fourteen days as directed 6units Jessica Isaac M.D. 12/26/2023 Onetouch UltraStrips Use 1 Strip as Directed Three Times A Day Guille More M.D. Atorvastatin [id number] Tablets Take 1 Tablet By Mouth Everyday AT Bedtime Guille More M.D. Onetouch Ultra 2w/Device Kit Use Three Times A Day Guille More M.D. [id number] Capsules Take 1 Capsule By Mouth Every Day Unknown History Medications Freestyle Garo 2/[place]/Flash Glucose Monitoring Zfrxmr1Uqdthq Device use as directed with sensors 1units Jessica Isaac M.D. 12/26/2023 - 12/26/2023 Vital Signs Date Vital Result Comment 04/11/2024 1:06pm BP Systolic 130 mmHg BP Diastolic 56 mmHg Heart Rate 82 /min Height 64 inches 5'4 Weight 147.38 lb BMI (Body Mass Index) 25.3 kg/m2 Results Test Acquired Date Facility Test Result H/L Range N ote Laboratory test finding 04/11/2024 Inhouse Glucose Fingerstick 111 Laboratory test finding 12/26/2023 [facility] Az-65 Autoantibody 256.4 U/mL High 0.0-5.0 1 Ia-2 Autoantibodies >120 U/mL High 2 Laboratory test finding 12/26/2023 Inhouse Glucose Fingerstick 226 Hemoglobin A1c 8.6% 1 Results confirmed on dilution. 2 Reference Range: <7.5 Negative > or = 7.5 Positive Procedures Date Code Description Status 11/23/2023 NSHOWOFF No Show Office Visit Complet ed Medical Devices Description No Information Available Encounters Type Date Location Provider Dx Diagnosis Office Visit 04/11/2024 1:00p Main Office ROSALINDA Curran E10.39 Type 1 diabet es w oth diabetic ophthalmic complication E10.42 Type 1 diabetes jef itus with diabetic polyneuropathy Assessments Date Code Description Provider 04/11/2024 E10.39 Type 1 diabetes mellitus with other diabetic ophthalmic complication ROSALINDA Curran 04/11/2024 E10.42 Type 1 diabetes mellitus with diabetic polyneuropathy ROSALINDA Curran Plan of Treatment Future Appointment(s):* 06/13/2024 11:15 am - ROSALINDA Curran at Main Office 04/11/2024 - ROSALINDA Curran* 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
--- OUTSIDE RECORDS SUMMARY | 2024-05-03 15:21 | XMS_ITS | Encounter Summary ---
Author Organization [facility] Address [address] [place] [address] Care Team Providers Care Director Of Physical Education Name Role Phone Guille More MD Primary Care Provider [phone] Encounter Details Date Type Department Care Team (Latest Contact Info) Description 01/19/2024 Lab Requisition [facility] - Main Lab [address] [facility] [place] [id number] Guille More MD [address] [facility] [address] [place] [address] Type 2 diabetes mellitus without complications (CMS/HCC) [...] Procedure Name Priority Date/Time Associated Diagnosis Comments FRUCTOSAMINE Routine 01/19/2024 12:00 AM EST Type 2 diabetes mellitus without complications (CMS/HCC) HEMOGLOBIN A1C Routine 01/19/2024 12:00 AM EST Type 2 diabetes mellitus without complications (CMS/HCC) documented in this encounter Results * (ABNORMAL) Fructosamine (01/19/2024 12:00 AM EST) Fructosamine 487(H) 151 - 300 umol /L 01/23/2024 1:06 PM EST [facility] Comment: Test performed at [facility], [address], [place], [place] ??[address] ? [phone] Viri Tompkins MD, PhD - Electrical Products Sales Engineer Blood Venous blood specimen / Unknown 01/19/2024 01/19/2024 5:35 PM EST Guille More MD LAB BLOOD ORDERABLES Final Result Performing Organization Address City/[facility]/ZIP Co de Phone Number [facility] [address] [place] [address] * (ABNORMAL) Hemoglobin A1c (01/19/2024 12:00 AM EST) Hemoglobin A1C 8.7(H) <6.5 % LAB CHEMISTRY METHOD 01/19/2024 10:25 PM EST [facility] Mean Bld Glu Estim. 203 mg/dL LAB CHEMISTRY METHOD 01/19/2024 10:25 PM EST [facility] Blood Venous blood specimen / Unknown 01/19/2024 01/19/2024 5:35 PM EST Guille More MD LAB BLOOD ORDERABLES Final Result Performing Organization Address [facility] Co de Phone Number [facility] [address] [place] [address], documented in this encounter Visit Diagnoses Diagnosis Type 2 diabetes mellitus without complications (CMS/HCC) documented in this encounter Care Teams Director Of Physical Education Relationship Specialty Start Date End Date Guille More MD [address] [address] PCP - General Internal Medicine 01/19/24 documented as of this encounter
== END 2024-05-03 14:32 | disposition home or self-care (01) ==
PROVIDERS: Physician Assistant Medical; Emergency Provider Emergency Medicine
DX: E11.621 Type 2 diabetes mellitus with foot ulcer (principal); L03.115 Cellulitis of right lower limb; E78.5 Hyperlipidemia, unspecified; Z79.4 Long term (current) use of insulin; Z79.02 Long term (current) use of antithrombotics/antiplatelets; Z79.899 Other long term (current) drug therapy
CPT/HCPCS: 36415; 73630; 80053; 85025; 85652; 86140; 99283

== ENCOUNTER → 2024-05-03 12:22 | Outpatient (BNV) | payer OTHER, SELFPAY | PROVIDERS: Emergency Provider Emergency Medicine; Visit Provider Radiology Diagnostic Radiology | DX: E11.621 Type 2 diabetes mellitus with foot ulcer (principal); L97.519 Non-pressure chronic ulcer of other part of right foot with unspecified severity | CPT/HCPCS: 73630 ==

== ENCOUNTER 2024-05-25 08:32 | Outpatient (REF) | payer OTHER, SELFPAY ==
[2024-05-25 10:06] LABS: Blood Urea Nitrogen 15 mg/dL (9-16); Estimated Glomerular Filt Rate > 60
== END 2024-05-25 08:33 | disposition home or self-care (01) ==
LOC: HO.LAB 08:32
PROVIDERS: PCP Internal Medicine; Visit Provider Radiology Vascular & Interventional Radiology
DX: R79.9 Abnormal finding of blood chemistry, unspecified (principal); R94.4 Abnormal results of kidney function studies
CPT/HCPCS: 36415; 82565; 84520

== ENCOUNTER 2024-06-12 14:13 | Outpatient (AMB) | payer OTHER, SELFPAY ==
[2024-06-12 14:28] VITALS: BP 154/82; PULSE 82; RESP 14; TEMP 36.6; O2SAT 97; BMI 25.4
--- NOTE | 2024-06-12 14:28 | A.OFFPC_ITS ---
Vital Signs 06/12/24 14:28 Height 5 ft 4 in Weight 148 lb BMI 25.4 BP 154/82 H Respiration 14 Pulse 82 Pulse Source Pulse Oximeter Temp 97.8 F Temp Source Temporal Artery Scan Pulse Oximetry (%) 97 Oxygen Delivery Method Room Air Intake Visit Reasons: establish care Census Clerk Required: No Accompanied by: Self / Same As Patient Allergies erythromycin base [ERYTHROMYCIN BASE] Allergy (Unknown, Verified 06/12/24 14:28) VOMITING Tobacco use date assessed: 06/12/24 Dental Screening Dental Screen Date: 06/12/24 Did you have a dental visit in the last 12 months?: Yes Did you have a dental problem in the last 6 months where you did not have access to dental care?: No Was dental information given to patient?: Patient has dentist [facility] Medical History (Updated 06/12/24 @ 15:27 by Gentry Medellin MD) Diabetic foot ulcer Neuropathy High cholesterol Barretts syndrome Diabetes Family History (Updated 06/12/24 @ 14:47 by ALINA Amanda) Father Liver cirrhosis Pre-diabetes Mother Heart problem Cancer of kidney Social History (Updated 06/12/24 @ 14:47 by ALINA Amanda) Housing: House Alcohol intake: current Alcohol intake frequency: a few times a month Patient Tobacco Use Status: Current everyday Tobacco user Cigarettes Per Day: 10 service: No Current occupational status: disabled Cognitive needs: No Hearing needs: No Vision needs: Yes (reading glasses) Questionnaire PHQ-9 Over the last 2 weeks, how often have you been bothered by any of the following problems? 1. Little interest or pleasure in doing things: not at all 2. Feeling down, depressed, or hopeless: not at all 3. Trouble falling or staying asleep, or sleeping too much: not at all 4. Feeling tired or having little energy: not at all 5. Poor appetite or overeating: not at all 6. Feeling bad about yourself - or that you are a failure or have let yourself or your family down: not at all 7. Trouble concentrating on things, such as reading the newspaper or watching television: not at all 8. Moving or speaking so slowly that other people could have noticed. Or the opposite - being so fidgety or restless that you have been moving around a lot more than usual: not at all 9. Thoughts that you would be better off or of hurting yourself in some way: not at all Total score: 0 Source: Developed by Drs. Linwood Chopra, Katy Lambert, Varinder Nevarez and colleagues, with an educational fahad from [employer]. Thrive Questionnaire Date Thrive assessed: 06/12/24 I am a: Patient What is your living situation today?: I have a steady place to live Within the past 12 months, did the food you bought not last and you didn't have the money to get more?: Never true Within the past 12 months, did you worry whether your food would run out before you got money to buy more?: Never true Do you have trouble paying for medicines?: No Do you have trouble getting transportation to medical appointments?: No Do you have trouble paying your heating and electricity bill?: No Do you have trouble taking care of your child, family member or friend?: No Do you have trouble with day-to-day activities such as bathing, preparing meals, shopping, managing finances, etc.?: No Are you currently unemployed and looking for a job?: No Are you interested in more education?: No Please select the resources that you would like help with: None THRIVE Score: 0 AUDIT C Alcohol Use Questionnaire (AUDIT-C) 1. How often do you have a drink containing alcohol?: 2-4 times a month 2. How many drinks containing alcohol do you have on a typical day when you are drinking?: 1 or 2 3. How often do you have six or more drinks on one occasion?: Never Total Score: 2 STORMY-7 AMB Questionnaire STORMY-7 Date STORMY - 7 assessed: 06/12/24 Feeling nervous, anxious, or on edge: 0 = Not at all Not being able to stop or control worryin = Not at all Worrying too much about different things: 0 = Not at all Trouble relaxin = Not at all Being so restless that it is hard to sit still: 0 = Not at all Becoming easily annoyed or irritable: 0 = Not at all Feeling afraid as if something awful might happen: 0 = Not at all Total STORMY-7 score (0-4 normal; 5-9 mild; 10-14 moderate; 15-21 severe): 0 Source: Developed by Drs. Linwood Chopra, Katy Lambert, Varinder Nevarez and colleagues, with an educational fahad from [employer]. Physical exam (Primary Care) Vital Signs: Last Vital Signs Temp 97.8 F 06/12/24 14:28 Pulse 82 06/12/24 14:28 Resp 14 06/12/24 14:28 BP 154/82 H 06/12/24 14:28 Pulse Ox 97 06/12/24 14:28 Oxygen Delivery Method Room Air 06/12/24 14:28 BMI result Body Mass Index 25.4 Tobacco/Smoking Status: Tobacco use Status Tobacco use date assessed 06/12/24 06/12/24 14:32 Patient Tobacco Use Status Current everyday Tobacco 06/12/24 14:47 PHQ-9: PHQ-9 Score PHQ-9: Total score 0 06/12/24 14:47 Thrive Assessment: Date of Thrive Assessment Date Thrive assessed 06/12/24 06/12/24 14:32 Coding Level of Care Code New Pt Level 4 (87823) Complex EM visit Add On G2211 Diagnoses Diabetes E11.9 Diabetic foot ulcer E11.621; L97.509 Assessment & Plan Assessment & Plan (1) Diabetes: Code(s): E11.9 - Type 2 diabetes mellitus without complications Category: Medical Plan: A1c is greater than 8.0. She has a scheduled appt with the policy writer typist next week. (2) Diabetic foot ulcer: Code(s): E11.621 - Type 2 diabetes mellitus with foot ulcer; L97.509 - Non-pressure chronic ulcer of other part of unspecified foot with unspecified severity Category: Medical Plan: Patient is followed at the wound clinic. Continue the same. The foot was not examined today. Plan History of Present Illness The patient is a 59-year-old female presenting with pain management concerns due to a diabetic foot ulcer and requires follow-up for her diabetes management. She has a long history of diabetes mellitus, initially classified as Type 2 over 30 years ago, but reclassified as Type 1 diabetes following recent testing in August of last year. The patient manages her diabetes with Lantus and Humalog insulin. Her HbA1c, recorded as 8.4%, indicates suboptimal control, and she has not had recent follow-up testing. The current primary concern involves the management of a diabetic foot ulcer on her right foot. Despite receiving care at a wound clinic, she experiences significant shooting and throbbing pain, with symptoms exacerbated by certain weather conditions, affecting her sleep quality. The patient seeks effective pain management strategies as her present medical and wound care providers have limited ability to prescribe analgesics. Her last known pain management attempt involved using Percocet obtained from her sister, which only provided temporary relief. Social History - Lives with . - Smokes half a pack of cigarettes per day. - Occasional alcohol consumption, not habitual, no drug use reported. - On disability primarily due to complications from diabetes. Review of Systems - Musculoskeletal: Reports chronic severe foot pain affecting daily activities and sleep quality. - General: Denies depression. Physical Exam General: Cooperative and healthy appearing Nutritional Appearance: Well nourished Orientation/consciousness: Patient oriented x3 Limitations: No limitations Head: Normal to inspection General: Appearance normal, both eyes and all related structures Neck: Normal visual inspection Chest: Normal palpation of entire chest wall Respiratory: Normal respiratory effort Neurology: Patient oriented x3 Results - Labs: Last HbA1c was 8.4%. Plan Patient was informed and verbally consented to the use of an ambient scribe for clinic note documentation during this visit. Discussion Notes The patient and I discussed the ongoing pain from her diabetic foot ulcer and the limitations of opioids, noting her previous use of Percocet. I explained the potential pain relief benefits of meloxicam as well as its advantages in managing symptomatic pain associated with her ulcer without the risks of dependency associated with narcotics. We reviewed her insulin therapy and compliance with her diabetes management plan, including her recent oversight in Humalog dosing which was corrected. I outlined the importance of her upcoming endocrinology appointment to optimize her insulin regimen towards better glycemic targets. I addressed her request for clinic location change due to proximity to her residence and scheduled a follow-up visit in three weeks at my alternate office location for her convenience, aiming to evaluate the response to her treatment. Patient Instructions - Start taking meloxicam once daily for pain management. - Adjust Humalog dosage to 10 units during supper. - Attend the scheduled endocrinology appointment later this month. - Return to the clinic at the newly scheduled location in three weeks for follow-up evaluation. - Contact our office for any worsening of pain or if new symptoms arise before the follow-up. - Continue current wound care regimen and report any changes in the wound status.
--- OUTSIDE RECORDS SUMMARY | 2024-06-12 17:20 | XMS_ITS | Clinical Summary ---
Author Organization [facility] Address [address] [place] [address] Phone Care Team Providers Care Environmental Specialist Name Role Phone Vesna Walker MD Primary Care Provider [phone] Encounters Date Type Department Care Team Description 04/03/2024 2:52 PM EST - 04/03/2024 11:59 PM EST Hospital Encounter [facility] Xray [address] [place] [address] Other specified symptoms and signs involving the circulatory and respiratory systems Discharge Disposition: Home or Self Care 04/03/2024 Lab Requisition [facility] - Main Lab [address] [facility] [place] [address] Senthil Cardoso PA Chronic fatigue, unspecified; Mixed hyperlipidemia; Encounter for general adult medical examination with abnormal findings; Type 2 diabetes mellitus without complications (CMS/[facility]) from Last 3 Months Social History Tobacco [...] Screening 12/23/2022 12/24/19, 10/17/2018, 08/09/2017 RSV Immunization Adult Patients (1 - Risk 60-74 years 1-dose series) [...] age to complete this topic Meningococcal B Vaccine Aged Out No l onger eligible based on patient's age to complete [...] active pulmonary process. 3. Distended stomach. Telerad ROSALINDA ([id number]) -------- FINAL REPORT -------- Dictated By: Shweta Singletary Dictated Date: 04/03/2024 16:50 ET Assigned Physician: Shweta Singletary Reviewed and Electronically Signed By: Shweta Singletary Signed Date: 04/03/2024 16:52 ET Workstation ID: [id number] Transcribed By: Self Edit Transcribed Date: 04/03/2024 [...] active pulmonary process. 3. Distended stomach. Telerad ROSALINDA ([id number]) -------- FINAL REPORT -------- Dictated By: Shweta Singletary Dictated Date: 04/03/2024 16:50 ET Assigned Physician: Shweta Singletary Reviewed and Electronically Signed By: Shweta Singletary Signed Date: 04/03/2024 16:52 ET Workstation ID: [id number] Transcribed By: Self Edit Transcribed Date: 04/03/2024 16:50 ET Senthil TELLEZ IMG XR PROCEDURES Final Result * SST tube (04/03/2024 12:00 AM EST) Pathologist [facility] Extra Tube Hold for add-ons. 04/03/2024 8:01 PM EST [facility] Comment:Auto resulted. Blood Venous blood specimen / Unknown 04/03/2024 04/03/2024 6:01 PM EST Senthil TELLEZ LAB BLOOD ORDERABLES Final Res ult [facility] [address] [place] [address], [place] [phone] * Lipid panel with reflex to direct LDL (04/03/2024 12:00 AM EST) Cholesterol 157 0 - 200 mg/dL LAB CHEMISTRY METHOD 04/03/2024 7:[address] [facility] Triglycerides 88 0 - 150 mg/dL LAB CHEMISTRY METHOD 04/03/2024 7:[address] [facility] HDL 66 >=40 mg/dL LAB CHEMISTRY METHOD 04/03/2024 7:[address] [facility] LDL Calculated 73 0 - 100 mg/dL LAB CHEMISTRY METHOD 04/03/2024 7:[address] [facility] VLDL Cholesterol Erich 17.6 mg/dL LAB CHEMISTRY METHOD 04/03/2024 7:[address] [facility] Non HDL Chol. (LDL+VLDL) 91 <145 mg/dL LAB CHEMISTRY METHOD 04/03/2024 7:[address] [facility] Chol/HDL Ratio 2.4 0.0 - 4.4 LAB CHEMISTRY METHOD 04/03/2024 7:19 PM EST [facility] Blood Venous blood specimen / Unknown 04/03/2024 04/03/2024 6:01 PM EST us Senthil TELLEZ LAB BLOOD ORDERABLES Final Res ult [facility] [address] [place] [address], [place] [phone] * (ABNORMAL) CBC auto differential (04/03/2024 12:00 AM EST) WBC 12.2(H) 4.8 - 10.8 K/mcL LAB HEMETOLOGY METHOD 04/03/2024 7:[address] [facility] RBC 4.30 3.80 - 4.80 M/mcL LAB HEMETOLOGY METHOD 04/03/2024 7:[address] [facility] Hemoglobin 13.6 11.5 - 16.0 g/dL LAB HEMETOLOGY METHOD 04/03/2024 7:[address] [facility] Hematocrit 39.9 35.0 - 47.0 % LAB HEMETOLOGY METHOD 04/03/2024 7:[address] [facility] MCV 93.4 79.0 - 98.0 FL LAB HEMETOLOGY METHOD 04/03/2024 7:[address] [facility] MCH 31.9 27.0 - 32.0 pcg LAB HEMETOLOGY METHOD 04/03/2024 7:[address] [facility] MCHC 34.1 32.0 - 37.0 g/dL LAB HEMETOLOGY METHOD 04/03/2024 7:[address] [facility] RDW 12.6 11.0 - 15.0 % LAB HEMETOLOGY METHOD 04/03/2024 7:[address] [facility] Platelets 294 130 - 400 K/mcL LAB HEMETOLOGY METHOD 04/03/2024 7:[address] [facility] MPV 10.8 7.0 - 11.0 FL LAB HEMETOLOGY METHOD 04/03/2024 7:[address] [facility] NRBC 0.0 <1.0 % LAB HEMETOLOGY METHOD 04/03/2024 7:[address] [facility] NRBC Absolute 0.00 <0.10 K/mcL LAB HEMETOLOGY METHOD 04/03/2024 7:[address] [facility] Neutrophils Relative 54.0 % LAB HEMETOLOGY METHOD 04/03/2024 7:[address] [facility] Lymphocytes Relative 33.9 % LAB HEMETOLOGY METHOD 04/03/2024 7:[address] [facility] Monocytes Relative 8.0 % LAB HEMETOLOGY METHOD 04/03/2024 7:[address] [facility] Eosinophils Relative 2.7 % LAB HEMETOLOGY METHOD 04/03/2024 7:[address] [facility] Basophils Relative 1.1 % LAB HEMETOLOGY METHOD 04/03/2024 7:[address] [facility] Immature Granulocytes Relative 0.3 % LAB HEMETOLOGY METHOD 04/03/2024 7:[address] [facility] Neutrophils Absolute 6.58 1.50 - 7.00 K/mcL LAB HEMETOLOGY METHOD 04/03/2024 7:[address] [facility] Lymphocytes Absolute 4.13 1.00 - 5.00 K/mcL LAB HEMETOLOGY METHOD 04/03/2024 7:[address] [facility] Monocytes Absolute 0.98 0.20 - 1.00 K/mcL LAB HEMETOLOGY METHOD 04/03/2024 7:[address] [facility] Eosinophils Absolute 0.33 0.00 - 0.50 K/[facility] LAB HEMETOLOGY METHOD 04/03/2024 7:20 PM EST [facility] Basophils Absolute 0.13 0.00 - 0.20 K/[facility] LAB HEMETOLOGY METHOD 04/03/2024 7:20 PM EST [facility] Immature Granulocytes Absolute 0.04(H) 0.00 - 0.03 K/[facility] LAB HEMETOLOGY METHOD 04/03/2024 7:20 PM EST [facility] Blood Venous blood specimen / Unknown 04/03/2024 04/03/2024 6:01 PM EST Senthil TELLEZ LAB BLOOD ORDERABLES Final Res ult Performing Organization Address [facility]/ZIP Co de Phone Number [facility] [address] [place] [address], [place] [phone] * Thyroid stimulating hormone (04/03/2024 12:00 AM EST) TSH 2.00 0.40 - 4.00 mcIU/mL LAB CHEMISTRY METHOD 04/03/2024 7:20 PM EST [facility] Blood Venous blood specimen / Unknown 04/03/2024 04/03/2024 6:01 PM EST Senthil TELLEZ LAB BLOOD ORDERABLES Final Res ult [facility] [address] [place] [address], [place] [phone] * Thyroxine free (04/03/2024 12:00 AM EST) Free T4 0.98 0.70 - 1.80 ng/dL LAB CHEMISTRY METHOD 04/03/2024 7:20 PM EST [facility] Blood Venous blood specimen / Unknown 04/03/2024 04/03/2024 6:01 PM EST us Senthil TELLEZ LAB BLOOD ORDERABLES Final Res ult [facility] [address] [place] [address], [place] [phone] * Comprehensive metabolic panel (04/03/2024 12:00 AM EST) Sodium 140 133 - 145 mmol/L LAB CHEMISTRY METHOD 04/03/2024 7:24 PM EST [facility] Comment:Results verified by repeat testing Potassium 5.0 3.5 - 5.5 mmol/L LAB CHEMISTRY METHOD 04/03/2024 7:[address] [facility] Chloride 107 96 - 110 mmol/L LAB CHEMISTRY METHOD 04/03/2024 7:[address] [facility] CO2 30 21 - 32 mmol/L LAB CHEMISTRY METHOD 04/03/2024 7:[address] [facility] Anion Gap 3 3 - 11 LAB CHEMISTRY METHOD 04/03/2024 7:[address] [facility] Glucose 75 70 - 100 mg/dL LAB CHEMISTRY METHOD 04/03/2024 7:[address] [facility] BUN 12 5 - 25 mg/dL LAB CHEMISTRY METHOD 04/03/2024 7:[address] [facility] Creatinine 0.73 0.50 - 1.10 mg/dL LAB CHEMISTRY METHOD 04/03/2024 7:[address] [facility] eGFR 94 >=60 mL/min/1. 73m2 LAB CHEMISTRY METHOD 04/03/2024 7:[address] [facility] Comment:Calculation based on the??Chronic Kidney Disease Epidemiology Collaboration (CKD-EPI) equation refit??without adjustment for race. BUN/Creatinine Ratio 16.4 LAB CHEMISTRY METHOD 04/03/2024 7:[address] [facility] Calcium 9.8 8.5 - 10.5 mg/dL LAB CHEMISTRY METHOD 04/03/2024 7:[address] [facility] AST (SGOT) 23 10 - 42 unit/L LAB CHEMISTRY METHOD 04/03/2024 7:[address] [facility] ALT (SGPT) 32 10 - 60 unit/L LAB CHEMISTRY METHOD 04/03/2024 7:[address] [facility] Alkaline Phosphatase 64 42 - 121 unit/L LAB CHEMISTRY METHOD 04/03/2024 7:[address] [facility] Total Protein 7.0 6.0 - 8.0 g/dL LAB CHEMISTRY METHOD 04/03/2024 7:[address] [facility] Albumin 3.9 3.2 - 5.0 g/dL LAB CHEMISTRY METHOD 04/03/2024 7:[address] [facility] Total Bilirubin 0.6 0.0 - 1.4 mg/dL LAB CHEMISTRY METHOD 04/03/2024 7:[address] [facility] Blood Venous blood specimen / Unknown 04/03/2024 04/03/2024 6:01 PM EST us Senthil TELLEZ LAB BLOOD ORDERABLES Final Res ult [facility] [address] [place] [address], * (ABNORMAL) Hemoglobin A1c (01/19/2024 12:00 AM EST) Hemoglobin A1C 8.7(H) <6.5 % LAB CHEMISTRY METHOD 01/19/2024 10:[address] [facility] Mean Bld Glu Estim. 203 mg/dL LAB CHEMISTRY METHOD 01/19/2024 10:[address] [facility] Blood Venous blood specimen / Unknown 01/19/2024 01/19/2024 5:35 PM EST us Vesna Walker MD LAB BLOOD ORDERABLES Final Result [facility] [address] [place] [address], * GHAZALA SCREENING DIGITAL (12/23/2020 5:13 PM EDT) Anatomical Region Laterality Modality Mammography 12/23/2020 12:5 7 PM EDT Narrative 12/23/2020 5:13 PM EDT [facility] Diagnostic Imaging Department [address] [place] [address] Patient: ??VOLODYMYR KAMARA ?/Age/Sex: 1965 - 55 - F Unit#: ??[id number] ? [facility] ? Mnemonic/Ordering Site: ??DIGSC/SPMAM Ordering Physician: ??VESNA WALKER MD [facility] Screening Digital - 12/23/201630 History: Bilateral breast cancer screening. ??Family history of breast cancer affecting sister at age 53. ??Previous benign breast biopsies. Technique: Bilateral digital mammography. Conventional CC and MLO projections with tomosynthesis MLO views and computer aided detection. Comparison: [facility] 10/17/2018, dating back to 09/03/2010. Breast density: Breast density: Heterogeneous, potentially obscuring small lesions, category c density (as calculated by [employer] software). Findings: Benign calcifications and tissue asymmetries are without concerning interval change. ??There is no suspicious group of microcalcification, suspicious asymmetry, suspicious mass, architectural distortion or concerning change in breast tissue density. Impression: No mammographic evidence of malignancy. BIRADS Category 2: Benign Findings, 3342F 67421, 58087 A negative mammogram in the face of a suspicious abnormality does not exclude the possibility of malignancy nor alter the indications for biopsy. Note: Patient information entered ??into a reminder system with a target due date for the next mammogram; PQRI II 7061F Dictating Physician: ??RASHAD REAVES MD Electronically Signed by: ??RASHAD REAVES MD Dic Date/Time: ??12/23/201709 Sign date/Time: ??12/23/201712 Procedure Note Rashad Reaves MD - 02/24/2022 [facility] Diagnostic Imaging Department [address] [place] [id number] Patient: VOLODYMYR KAMARA /Age/Sex: 1965 - 55 - F Unit#: [id number] [facility]/Ordering Site: [facility] Ordering Physician: VESNA WALKER MD Ghazala Screening Digital - 12/23/20 - 1631 History: Bilateral breast cancer screening. Family history of breastcancer affecting sister at age 53. Previous benign breast biopsies. Technique: Bilateral digital mammography. Conventional CC and MLOprojections with tomosynthesis MLO views and computer aided detection. Comparison: [facility] 10/17/2018, dating back to 09/03/2010. Breast density: Breast density: Heterogeneous, potentially obscuringsmall lesions, category c density (as calculated by [employer] software). Findings: Benign calcifications and tissue asymmetries are without concerninginterval change. There is no suspicious group of microcalcification, suspicious asymmetry, suspicious mass, architectural distortion or concerning changein breast tissue density. Impression: No mammographic evidence of malignancy. BIRADS Category 2: Benign Findings, 3342F 69045, [address]374 A negative mammogram in the face of a suspicious abnormality does notexclude the possibility of malignancy nor alter the indications for biopsy. Note: Patient information entered into a reminder system with a targetdue date for the next mammogram; PQRI II 7002F Dictating Physician: RASHAD REAVES MD Electronically Signed by: RASHAD REAVES MD Dic Date/Time: 12/23/201709 Sign date/Time: 12/23/201712 Vesna Walker MD IMG BI PROCEDURES Final Res ult from Last 3 Months or Most Recently Relevant to Health Maintenance Insurance [facility] [place] [id number] Care Teams Environmental Specialist Relationship Specialty Start Date End Date Vesna Walker MD [address] [place] [id number] (work) PCP - General Internal Medicine 01/19/24
--- OUTSIDE RECORDS SUMMARY | 2024-06-12 17:20 | XMS_ITS | Continuity of Care Document ---
Author Organization [facility] [address] [place] [address] Phone [phone] Care Team Providers Care Underwriting Director Name Role Phone Guille More M.D. Care Team Information Re ceiver [phone] Problems Active Problems Provider Date Bilateral cyst [...] Date Glucagon Emergency Kit For Low Blood [id number] Kit use 1 injection subcutaneously for low blood sugar as needed per instructions 2units Jessica Isaac M.D. 04/11/2024 Humalog [id number] Solution Pen-Inject inject 6 units subcutaneously before meals 15ml Jessica Isaac M.D. 12/26/2023 Freestyle Garo 2/[place]/Flash Glucose Monitoring [id number] Device use as directed with sensors 1unnenita Isaac M.D. 12/26/2023 Freestyle Garo 2/Sensor/Flash Glucose Monitoring [id number] Misc 1 sensor to skin every fourteen days as directed 6units Jessica Isaac M.D. 12/26/2023 Onetouch UltraStrips Use 1 Strip as Directed Three Times A Day Guille More M.D. Atorvastatin [id number] Tablets Take 1 Tablet By Mouth Everyday AT Bedtime Guille More M.D. Onetouch Ultra 2w/Device Kit Use Three Times A Day Guille More M.D. [id number] Capsules Take 1 Capsule By Mouth Every Day Unknown History Medications Freestyle Garo 2/[place]/Flash Glucose Monitoring [id number] Device use as directed with sensors 1units Jessica Iasac M.D. 12/26/2023 - 12/26/2023 Vital Signs Date Vital Result Comment 04/11/2024 1:06pm BP Systolic 130 mmHg BP Diastolic 56 mmHg Heart Rate 82 /min Height 64 inches 5'4 Weight 147.38 lb BMI (Body Mass Index) 25.3 kg/m2 Results Test Acquired Date Facility Test Result H/L Range Note Glucose Fingerstick 04/11/2024 Inhouse Glucose Fingerstick 111 Az-65 Autoantibody 12/26/2023 [facility] Az-65 Autoantibody 256.4 U/mL High 0.0-5.0 1 Ia-2 Autoantibodies 12/26/2023 [facility] Ia-2 Autoantibodies >120 U/mL High 2 Glucose Fingerstick 12/26/2023 Inhouse Glucose Fingerstick 226 Hemoglobin A1c 12/26/2023 Inhouse Hemoglobin A1c 8.6% 1 Results confirmed on [...] ROSALINDA Curran Plan of Treatment Future Appointment(s):* 07/03/2024 2:30 pm - ROSALINDA Curran at Main Office 04/11/2024 - ROSALINDA Curran* 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
--- OUTSIDE RECORDS SUMMARY | 2024-06-12 17:20 | XMS_ITS | Encounter Summary ---
Author Organization [facility] Address [address] [place] [address] Care Team Providers Care Hospice Aide Name Role Phone Guille More MD Primary Care Provider [phone] Encounter Details Date Type Department Care Team (Latest Contact Info) Description 04/03/2024 Lab Requisition [facility] - Main Lab 299 [facility] [place] [address] Senthil Cardoso PA 299 [facility] [address] [place], [place] [id number] Chronic fatigue, unspecified; Mixed hyperlipidemia; Encounter for [...] Hold for add-ons. 04/03/2024 8:01 PM EST [facility] Comment:Auto resulted. Blood Venous blood specimen / Unknown 04/03/2024 04/03/2024 6:01 PM EST us Senthil TELLEZ LAB BLOOD ORDERABLES Final Res ult [facility]) [facility] [address] [place] [address], * (ABNORMAL) CBC auto differential (04/03/2024 12:00 AM EST) WBC 12.2(H) 4.8 - 10.8 K/[facility] LAB HEMETOLOGY METHOD 04/03/2024 7:20 PM [facility] RBC 4.30 3.80 - 4.80 M/mcL LAB HEMETOLOGY METHOD 04/03/2024 7:20 PM [facility] Hemoglobin 13.6 11.5 - 16.0 g/dL LAB HEMETOLOGY METHOD 04/03/2024 7:20 PM [facility] Hematocrit 39.9 35.0 - 47.0 % LAB HEMETOLOGY METHOD 04/03/2024 7:20 PM [facility] MCV 93.4 79.0 - 98.0 FL LAB HEMETOLOGY METHOD 04/03/2024 7:20 PM [facility] MCH 31.9 27.0 - 32.0 pcg LAB HEMETOLOGY METHOD 04/03/2024 7:20 PM [facility] MCHC 34.1 32.0 - 37.0 g/dL LAB HEMETOLOGY METHOD 04/03/2024 7:20 PM [facility] RDW 12.6 11.0 - 15.0 % LAB HEMETOLOGY METHOD 04/03/2024 7:20 PM [facility] Platelets 294 130 - 400 K/mcL LAB HEMETOLOGY METHOD 04/03/2024 7:20 PM [facility] MPV 10.8 7.0 - 11.0 FL LAB HEMETOLOGY METHOD 04/03/2024 7:20 PM [facility] NRBC 0.0 <1.0 % LAB HEMETOLOGY METHOD 04/03/2024 7:20 PM [facility] NRBC Absolute 0.00 <0.10 K/mcL LAB HEMETOLOGY METHOD 04/03/2024 7:20 PM [facility] Neutrophils Relative 54.0 % LAB HEMETOLOGY METHOD 04/03/2024 7:20 PM [facility] Lymphocytes Relative 33.9 % LAB HEMETOLOGY METHOD 04/03/2024 7:20 PM [facility] Monocytes Relative 8.0 % LAB HEMETOLOGY METHOD 04/03/2024 7:20 PM [facility] Eosinophils Relative 2.7 % LAB HEMETOLOGY METHOD 04/03/2024 7:20 PM [facility] Basophils Relative 1.1 % LAB HEMETOLOGY METHOD 04/03/2024 7:20 PM [facility] Immature Granulocytes Relative 0.3 % LAB HEMETOLOGY METHOD 04/03/2024 7:20 PM [facility] Neutrophils Absolute 6.58 1.50 - 7.00 K/mcL LAB HEMETOLOGY METHOD 04/03/2024 7:20 PM [facility] Lymphocytes Absolute 4.13 1.00 - 5.00 K/mcL LAB HEMETOLOGY METHOD 04/03/2024 7:20 PM [facility] Monocytes Absolute 0.98 0.20 - 1.00 K/mcL LAB HEMETOLOGY METHOD 04/03/2024 7:20 PM [facility] Eosinophils Absolute 0.33 0.00 - 0.50 K/mcL LAB HEMETOLOGY METHOD 04/03/2024 7:20 PM [facility] Basophils Absolute 0.13 0.00 - 0.20 K/mcL LAB HEMETOLOGY METHOD 04/03/2024 7:20 PM [facility] Immature Granulocytes Absolute 0.04(H) 0.00 - 0.03 K/mcL LAB HEMETOLOGY METHOD 04/03/2024 7:20 PM [facility] Blood Venous blood specimen / Unknown 04/03/2024 04/03/2024 6:01 PM EST us Senthil TELLEZ LAB BLOOD ORDERABLES Final Res ult [facility] [address] [place] [address], [place] [phone] * Thyroid stimulating hormone (04/03/2024 12:00 AM EST) TSH 2.00 0.40 - 4.00 mcIU/mL LAB CHEMISTRY METHOD 04/03/2024 7:20 PM EST [facility] Blood Venous blood specimen / Unknown 04/03/2024 04/03/2024 6:01 PM EST us Senthil TLELEZ LAB BLOOD ORDERABLES Final Res ult Performing Organization Address [facility]/ZIP Co de Phone Number [facility] [address] [place] [address], [place] [phone] * Thyroxine free (04/03/2024 12:00 AM EST) [facility] Free T4 0.98 0.70 - 1.80 ng/dL LAB CHEMISTRY METHOD 04/03/2024 7:20 PM EST [facility] Blood Venous blood specimen / Unknown 04/03/2024 04/03/2024 6:01 PM EST us Senthil TELLEZ LAB BLOOD ORDERABLES Final Res ult Performing Organization Address [facility]/ZIP Co de Phone Number [facility] [address] [place] [address], [place] [phone] * Lipid panel with reflex to direct LDL (04/03/2024 12:00 AM EST) Pathologist [facility] Cholesterol 157 0 - 200 mg/dL LAB CHEMISTRY METHOD 04/03/2024 7:19 PM EST [facility] Triglycerides 88 0 - 150 mg/dL LAB CHEMISTRY METHOD 04/03/2024 7:19 PM EST [facility] HDL 66 >=40 mg/dL LAB CHEMISTRY METHOD 04/03/2024 7:19 PM [facility] LDL Calculated 73 0 - 100 mg/dL LAB CHEMISTRY METHOD 04/03/2024 7:19 PM [facility] VLDL Cholesterol Erich 17.6 mg/dL LAB CHEMISTRY METHOD 04/03/2024 7:19 PM [facility] Non HDL Chol. (LDL+VLDL) 91 <145 mg/dL LAB CHEMISTRY METHOD 04/03/2024 7:19 PM [facility] Chol/HDL Ratio 2.4 0.0 - 4.4 LAB CHEMISTRY METHOD 04/03/2024 7:19 PM [facility] Blood Venous blood specimen / Unknown 04/03/2024 04/03/2024 6:01 PM EST us Senthil TELLEZ LAB BLOOD ORDERABLES Final Res ult [facility] [address] [place] [address], [place] [phone] * Comprehensive metabolic panel (04/03/2024 12:00 AM EST) Sodium 140 133 - 145 mmol/L LAB CHEMISTRY METHOD 04/03/2024 7:24 PM [facility] Comment:Results verified by repeat testing Potassium 5.0 3.5 - 5.5 mmol/L LAB CHEMISTRY METHOD 04/03/2024 7:24 PM [facility] Chloride 107 96 - 110 mmol/L LAB CHEMISTRY METHOD 04/03/2024 7:24 PM [facility] CO2 30 21 - 32 mmol/L LAB CHEMISTRY METHOD 04/03/2024 7:24 PM [facility] Anion Gap 3 3 - 11 LAB CHEMISTRY METHOD 04/03/2024 7:24 PM [facility] Glucose 75 70 - 100 mg/dL LAB CHEMISTRY METHOD 04/03/2024 7:24 PM [facility] BUN 12 5 - 25 mg/dL LAB CHEMISTRY METHOD 04/03/2024 7:24 PM [facility] Creatinine 0.73 0.50 - 1.10 mg/dL LAB CHEMISTRY METHOD 04/03/2024 7:24 PM [facility] eGFR 94 >=60 mL/min/1. 73m2 LAB CHEMISTRY METHOD 04/03/2024 7:24 PM [facility] Comment:Calculation based on the??Chronic Kidney Disease Epidemiology Collaboration (CKD-EPI) equation refit??without adjustment for race. BUN/Creatinine Ratio 16.4 LAB CHEMISTRY METHOD 04/03/2024 7:24 PM [facility] Calcium 9.8 8.5 - 10.5 mg/dL LAB CHEMISTRY METHOD 04/03/2024 7:24 PM [facility] AST (SGOT) 23 10 - 42 unit/L LAB CHEMISTRY METHOD 04/03/2024 7:24 PM [facility] ALT (SGPT) 32 10 - 60 unit/L LAB CHEMISTRY METHOD 04/03/2024 7:24 PM [facility] Alkaline Phosphatase 64 42 - 121 unit/L LAB CHEMISTRY METHOD 04/03/2024 7:24 PM [facility] Total Protein 7.0 6.0 - 8.0 g/dL LAB CHEMISTRY METHOD 04/03/2024 7:24 PM [facility] Albumin 3.9 3.2 - 5.0 g/dL LAB CHEMISTRY METHOD 04/03/2024 7:24 PM [facility] Total Bilirubin 0.6 0.0 - 1.4 mg/dL LAB CHEMISTRY METHOD 04/03/2024 7:24 PM [facility] Blood Venous blood specimen / Unknown 04/03/2024 04/03/2024 6:01 PM EST us Senthil TELLEZ LAB BLOOD ORDERABLES Final Res ult [facility] [address] [place] [address], documented in this encounter Visit Diagnoses Diagnosis Chronic fatigue, unspecified Mixed hyperlipidemia Encounter for general adult medical examination with abnormal findings Type 2 diabetes mellitus without complications documented in this encounter Care Teams Hospice Aide Relationship Specialty Start Date End Date Guille More MD [address] [address] PCP - General Internal Medicine 01/19/24 documented as of this encounter
--- OUTSIDE RECORDS SUMMARY | 2024-06-12 17:20 | XMS_ITS | Encounter Summary ---
Author Organization [facility] Address [address] [place] [address] Care Team Providers Care Dip Painter Name Role Phone Guille More MD Primary Care Provider [phone] Encounter Details Date Type Department Care Team (Latest Contact Info) Description 01/19/2024 Lab Requisition [facility] - Main Lab 299 [facility] [employer] [place] [id number] Guille More MD 299 [facility] [address] [place] [address] Type 2 diabetes mellitus without complications (CMS/HCC) [...] EST [facility] Comment: Test performed at [facility], [address], [place], [place] ??[address] ? [phone] Viri Tompkins MD, PhD - Theology Teacher Blood Venous blood specimen / Unknown 01/19/2024 01/19/2024 5:35 PM EST Guille More MD LAB BLOOD ORDERABLES Final Result Performing Organization Address [facility]/ZIP Co de Phone Number [facility] [address] [place] [address] * (ABNORMAL) Hemoglobin A1c (01/19/2024 12:00 AM EST) Hemoglobin A1C 8.7(H) <6.5 % LAB CHEMISTRY METHOD 01/19/2024 10:25 PM EST [facility] Mean Bld Glu Estim. 203 mg/dL LAB CHEMISTRY METHOD 01/19/2024 10:25 PM EST [facility] Blood Venous blood specimen / Unknown 01/19/2024 01/19/2024 5:35 PM EST Guille More MD LAB BLOOD ORDERABLES Final Result Performing Organization Address [facility] Co de Phone Number [facility] [address] [place] [address], documented in this encounter Visit Diagnoses Diagnosis Type 2 diabetes mellitus without complications documented in this encounter Care Teams Dip Painter Relationship Specialty Start Date End Date Guille More MD [address] [address] PCP - General Internal Medicine 01/19/24 documented as of this encounter
== END 2024-06-12 15:46 | disposition home or self-care (01) ==
LOC: HO.HMCSH 14:13
PROVIDERS: PCP Internal Medicine; Visit Provider Internal Medicine
DX: E11.621 Type 2 diabetes mellitus with foot ulcer (principal); L97.529 Non-pressure chronic ulcer of other part of left foot with unspecified severity

== ENCOUNTER → 2024-06-12 14:13 | Outpatient (BNVA) | payer OTHER, SELFPAY | PROVIDERS: PCP Internal Medicine; Visit Provider Internal Medicine | DX: Z13.89 Encounter for screening for other disorder (principal) ==

== ENCOUNTER 2024-07-16 10:35 | Outpatient (AMB) | payer OTHER, SELFPAY ==
[2024-07-16 10:12] VITALS: BP 130/70; PULSE 74; TEMP 36.3; O2SAT 98; BMI 24.9
--- NOTE | 2024-07-16 10:12 | MHC.PC.OV ---
Vital Signs 07/16/24 10:12 Height 5 ft 4 in Weight 145 lb BMI 24.9 BP 130/70 Blood Pressure Location Lt brachial Position Sitting Pulse 74 Pulse Source Pulse Oximeter Temp 97.4 F Temp Source Axillary Pulse Oximetry (%) 98 Oxygen Delivery Method Room Air Intake Visit Reasons: 3 Week F/U - see comments Body And Fender Mechanic Apprentice Required: No Accompanied by: Self / Same As Patient Allergies erythromycin base [ERYTHROMYCIN BASE] Allergy (Unknown, Verified 07/16/24 10:12) VOMITING Tobacco use date assessed: 07/16/24 Dental Screening Dental Screen Date: 07/16/24 Did you have a dental visit in the last 12 months?: No Did you have a dental problem in the last 6 months where you did not have access to dental care?: No PFSH Medical History Diabetic foot ulcer Neuropathy High cholesterol Barretts syndrome Diabetes Surgical History History of colonoscopy (~05/06/21) Family History (Updated 07/16/24 @ 10:51 by Melvi Valladares MA) Father Liver cirrhosis Pre-diabetes Mother Heart problem Cancer of kidney Social History Housing: House Alcohol intake: current Alcohol intake frequency: a few times a month Patient Tobacco Use Status: Current everyday Tobacco user Cigarettes Per Day: 10 e-Cigarette/Vaping Use: Currently Using service: No Current occupational status: disabled Cognitive needs: No Hearing needs: No Vision needs: Yes (reading glasses) Questionnaire PHQ-9 Over the last 2 weeks, how often have you been bothered by any of the following problems? 1. Little interest or pleasure in doing things: not at all 2. Feeling down, depressed, or hopeless: not at all 3. Trouble falling or staying asleep, or sleeping too much: not at all 4. Feeling tired or having little energy: not at all 5. Poor appetite or overeating: not at all 6. Feeling bad about yourself - or that you are a failure or have let yourself or your family down: not at all 7. Trouble concentrating on things, such as reading the newspaper or watching television: not at all 8. Moving or speaking so slowly that other people could have noticed. Or the opposite - being so fidgety or restless that you have been moving around a lot more than usual: not at all 9. Thoughts that you would be better off or of hurting yourself in some way: not at all Total score: 0 Source: Developed by Drs. Linwood Chopra, Katy Lambert, Varinder Nevarez and colleagues, with an educational fahad from [employer]. Thrive Questionnaire Date Thrive assessed: 07/16/24 I am a: Patient Within the past 12 months, did the food you bought not last and you didn't have the money to get more?: Never true Within the past 12 months, did you worry whether your food would run out before you got money to buy more?: Never true Do you have trouble paying for medicines?: No Do you have trouble getting transportation to medical appointments?: No Do you have trouble paying your heating and electricity bill?: No Do you have trouble taking care of your child, family member or friend?: No Do you have trouble with day-to-day activities such as bathing, preparing meals, shopping, managing finances, etc.?: No Are you currently unemployed and looking for a job?: No Are you interested in more education?: No THRIVE Score: 0 AUDIT C Alcohol Use Questionnaire (AUDIT-C) 1. How often do you have a drink containing alcohol?: Monthly or less 2. How many drinks containing alcohol do you have on a typical day when you are drinking?: 1 or 2 3. How often do you have six or more drinks on one occasion?: Less than monthly Total Score: 2 STORMY-7 AMB Questionnaire STORMY-7 Date STORMY - 7 assessed: 07/16/24 Feeling nervous, anxious, or on edge: 0 = Not at all Not being able to stop or control worryin = Not at all Worrying too much about different things: 0 = Not at all Trouble relaxin = Not at all Being so restless that it is hard to sit still: 0 = Not at all Becoming easily annoyed or irritable: 0 = Not at all Feeling afraid as if something awful might happen: 0 = Not at all Total STORMY-7 score (0-4 normal; 5-9 mild; 10-14 moderate; 15-21 severe): 0 Source: Developed by Drs. Linwood Chopra, Katy Lambert, Varinder Nevarez and colleagues, with an educational fahad from [employer]. Physical exam (Primary Care) Vital Signs: Last Vital Signs Temp 97.4 F 07/16/24 10:12 Pulse 74 07/16/24 10:12 BP 130/70 07/16/24 10:12 Pulse Ox 98 07/16/24 10:12 Oxygen Delivery Method Room Air 07/16/24 10:12 BMI result Body Mass Index 24.9 Tobacco/Smoking Status: Tobacco use Status Tobacco use date assessed 07/16/24 07/16/24 10:13 Patient Tobacco Use Status Current everyday Tobacco 07/16/24 10:13 e-Cigarette/Vaping Use Currently Using 07/16/24 10:13 PHQ-9: PHQ-9 Score PHQ-9: Total score 0 07/16/24 10:51 Thrive Assessment: Date of Thrive Assessment Date Thrive assessed 07/16/24 07/16/24 10:13 Coding Level of Care Code Est Pt Level 4 (85700) Complex EM visit Add On G2211 Diagnoses Diabetes E11.9 Assessment & Plan Assessment & Plan (1) Diabetes: Code(s): E11.9 - Type 2 diabetes mellitus without complications Category: Medical Plan: History of Present Illness The patient is a 59-year-old female presenting with concerns related to managing pain from a diabetic foot wound. She notices that the pain intensifies during rainy weather, managed previously with a 14-day regimen of meloxicam, which she uses only as needed during weather-induced pain episodes. She expresses a need for continued access to this medication to manage her pain effectively. Although not advised against driving, she has self-imposed restrictions on driving until the foot wound fully heals due to concerns over exacerbating her condition and safety considerations, given her neuropathy. This wound and her diabetic condition complicate her mobility, impacting her sense of safety behind the wheel. She is also overdue for mammography and is interested in scheduling this through a recommended facility. Furthermore, she reports regular check-ins with an motion picture set grip, addressing her diabetic conditions, but awaits a prescription for her glucose monitoring sensors. Social History - Currently smokes about half a pack of cigarettes daily. - Concerns about driving due to foot wound and diabetic neuropathy. - Reports past use of meloxicam specifically for weather-triggered foot pain. Review of Systems - Musculoskeletal: Reports foot pain, particularly during rainy weather. - Neurological: Reports neuropathy in the foot affecting sensation. - Endocrine: Reports management for diabetes mellitus. - Respiratory: Denies shortness of breath or respiratory symptoms. - General: Denies driving currently due to foot pain and safety concerns. Physical Exam General: Cooperative and healthy appearing Nutritional Appearance: Well nourished Orientation/consciousness: Patient oriented x3 Limitations: No limitations Head: Normal to inspection General: Appearance normal, both eyes and all related structures Neck: Normal visual inspection Chest: Normal palpation of entire chest wall Respiratory: Smoker, half a pack per day ormal respiratory effort Neurology: Patient oriented x3, neuropathy in the foot affecting driving ability Results Plan 1. Diabetic Neuropathy - Use meloxicam for weather-related pain management. - Consider driving limitations due to neuropathy impact. 2. Foot Wound - Monitor healing status of foot wound. - Delay driving until wound is adequately healed. 3. Diabetes Mellitus - Coordinate with motion picture set grip for ongoing diabetes treatment. - Follow up on glucose sensor prescription. 4. Tobacco Use Disorder - Monitor smoking habits. - Provide support for smoking cessation efforts as needed. Discussion Notes I discussed with the patient the relationship between weather conditions and her foot pain, agreeing to prescribe meloxicam for episodic use during periods of increased pain. We reviewed her decision not to drive currently due to her concerns about exacerbating her foot wound and the effects of neuropathy. I explained that monitoring the healing process was essential before resuming driving. Additionally, we discussed the pending mammogram, noting our ability to facilitate this through the next building over. I confirmed her motion picture set grip should address the prescription for her glucose sensors. We also reviewed her tobacco use, recommending cessation support if she chooses. Patient Instructions - Use meloxicam only when experiencing increased foot pain due to weather; follow prescribed dosage. - Avoid driving until your foot wound is fully healed. - Schedule and complete a mammogram. - Continue to follow up with your motion picture set grip and ensure prescription for sensors is received. - Consider resources available for quitting smoking if interested. - Report any changes in symptoms or concerns promptly. Orders: Orders MM screening mammo BI Today Z12.31 - Encounter for screening mammogram for malignant neoplasm of breast Medications: Refilled meloxicam 15 mg PO DAILY 14 tabs 0RF
--- OUTSIDE RECORDS SUMMARY | 2024-07-16 11:21 | XMS_ITS ---
Author Organization [facility] Address [address] [place] [address] Care Team Providers Care Art Professor Name Role Phone Guille More MD Primary Care Provider Unav ailStefanie Cornell Unavailable [phone] REASON FOR VISIT Cancel Encounters Encounter Location Date Provider Diagnosis [facility] [address] [place] [address] 07/06/2024 Stefanie Boston Plan Of Treatment No Information Progress Notes * YAJAIRAMagda YANGFarooqOB:1965 ( 59 yo F)Acc No.[id number]:07/06/2024 Patient:?Karen KAMARA :1965???Age:59 Y???Sex:Female [address] [place], [address] * true * Date:? Generated for Bonita beckford/Loli/eTransmitting on:?07/16/2024 11:20 AM EDT
--- OUTSIDE RECORDS SUMMARY | 2024-07-16 11:21 | XMS_ITS | Patient Health Record ---
Author Organization [facility] Address [address] [facility] [place] [address] Care Team Providers Care Medical Billing Coordinator Name Role Phone Guille More MD Primary Care Provider Stefanie Sena Unavailable [phone] Allergies Allergen (clinical drug ingredient) Drug/Non Drug Allergy documented on EMR Reaction Allergy Type Onset Date Status ibuprofen Advil can't take- Barretts Drug Allergy Active Motrin can't take- Barretts Drug Allergy Active aspirin Aspirin can't take- Barretts Drug Allergy Active erythromycin Erythromycin dry heaving Drug Allergy Active Reason For Referral No Information Medications Medication SIG (Take, Route, Frequency, Duration) Notes Start Date End Date Status Vitamin B12 1000 MCG 1 tablet Orally Onc e a day Active Atorvastatin Calcium 20 MG 1 tablet Oral ly Once a day Active Gabapentin 100 MG 1 capsule at bedtime Orally Once a day Active HumaLOG 6 units Active Pantoprazole Sodium 40 MG 1 tablet 1/2 t o 1 hour before morning meal Orally Once a day Active Lantus 42 units Active Tylenol Active Vitamin D Active Melatonin [...] Negative Encounters Encounter Location Date Provider Diagnosis [facility] [address] [place] [address] 07/06/2024 Stefanie Boston Plan Of Treatment No Information Insurance Providers Payer Name Payer Address Payer Phone Subscriber Number Group Number Insured Name Patient Relationship to Insured Coverage Start Date Coverage End Date [facility] [address] [address] [place] [address] [id number] Karen Kamara Self - patient is the insured Medical (General) History Medical History History ICD Code asthma Back,Hip,and Knee pain type II diabetes Barretts Neuropathy
--- OUTSIDE RECORDS SUMMARY | 2024-07-16 11:21 | XMS_ITS ---
Author Organization [facility] Address [address] [facility] [place] [address] Care Team Providers Care Coat Repair Inspector Name Role Phone Guille More MD Primary Care Provider Stefanie Sena Unavailable [phone] Allergies Allergen (clinical drug ingredient) Drug/Non Drug [...] Negative Encounters Encounter Location Date Provider [facility] [address] [place] [phone] 07/10/2024 Stefanie Boston Plan Of Treatment No Information Progress Notes * Sunil KAMARAOB:1965 ( 59 yo F)Acc No.[id number]:07/10/2024 Progress Notes Patient:?Karen KAMARA Provider:?Stefanie Boston DPM :1965???Age:59 Y???Sex:Female D ate:07/10/2024 Address: [address] [facility] Pcp:Guille More MD Subjective: * Chief Complaints: * ??? * ROS:?General/Constitutional:?Nausea?denies.?Vomiting?denies.?Hunger Thirst?denies.?Loss appetite?denies.?Chills?denies.?Fatigue?denies.?Fever?denies.?Night Sweats?admits.?Unexplained weight loss?denies.?Unexplained weight gain?denies.?HEENTM:?Dentures?denies.?Dizziness?denies.?Glasses/contacts?denies.?Retinopathy?de nies.?Blurred/double vision?denies.?TMJ?denies.?Discharge/drainage?denies.?Implants?denies.?Sore throat?denies.?Dental implants?denies.?Hard of hearing ?denies.?Difficulty chewing/swallowing/speaking?denies.?Nose bleeds?denies.?Sore mouth?denies.?Respiratory:?On Oxygen?denies.?Pneumonia/pleurisy?denies.?Bronchitis?denies.?Emphysema?denies.?C oughing?admits.?Cough blood?denies.?Shortness of breath?denies.?Wheezing?denies.?Cardiovascular:?Pacemaker?denies.?MVP?denies.?WPW?denies.?CHF?denies.?Heart attack?denies.?Septal defect?denies.?Rapid beat?denies.?Chest pain ?denies.?Atrial Fib.?denies.?Murmur/Palpitations?denies.?Gastrointestinal:?Hemorrhoids?denies.?Stomach/Abdominal pain?admits.?Dark blood stool?denies.?Irritable bowel ?denies.?Constipation?denies.?Diarrhea?denies.?Hematology:?Swelling?denies.?Clots?denies.?Varicose Veins?denies.?Bruising?denies.?Bleeding problem?denies.?Genitourinary:?Blood urine?denies.?Frequent/Painfu/urination/bladder control?denies.?Kidney stones?denies.?Infection (UTI)?denies.?Nephropathy?denies.?sex trans dis (STD)?denies.?Prostate?denies.?Musculoskeletal:?Hammertoes?denies.?Bunions?denies.?Back Pain?denies.?Muscle Cramps/ Resting?admits.?Muscle cramps / walking?denies.?Generalized aches and pains?denies.?Weakness?denies.?Integ.:?Walker?denies.?Scars?denies.?Corns/calluses?denies.?Ingrown nails?denies.?Painful nails?denies.?Open Sores?denies.?Rashes?admits.?Neurologic:?Difficulty sleeping?denies.?Brain disorder?denies.?Numbness?denies.?Balance trouble?admits.?Confusion?denies.?Fainting/blackouts?denies.?Tingling?admits.?Tr emors?denies.? * Medical History:?Asthma, Mami k,Hip,and Knee pain, type II diabetes, Barretts, Neuropathy. * Family History:?Mother: colleen trujillo?Father: .? * Social History:?Tobacco Use:?Tobacco use other than smoking?Are you an other tobacco user??No ?Tobacco Control (Standard)?Tobacco use:?Current smoker ???Drugs/Alcohol:?Drugs?Have you used drugs other than those for medical reasons in the past 12 months??No ???Miscellaneous:?Caffeine: yes. ?Children: no. ?Marital status: . ???Drug/Alcohol:?AUDIT-C (Standard)?Did you have a drink containing alcohol in the past year??Yes ?How often did you have a drink containing alcohol in the past year??2 to 4 times a month (2 points) ?How many drinks did you have on a typical day when you were drinking in the past year??Declined to specify (0 point) ?How often did you have six or more drinks on one occasion in the past year??Declined to specify (0 point) ?Points?2 ?Interpretation?Negative * Medications:?Taking Tylenol , Taking Melatonin 5 MG Tablet [...] , Notes to Pharmacist: 42 units * Allergies:?Erythromycin: dry heaving, Aspirin: can't take- Leticia, Advil: can't take- Barretts, Motrin: can't take- Barretts. Objective: * Vitals:? Assessment: Plan: * Treatment: * Images: * The named appointment provid er may or may not be the originator of this progress note, and it is not deemed complete until electronically signed by the appointment provider. Sign off status: Pending * Provider:?Stefanie Boston DPM Date:?0 07/10/2024 Generated for Bonita beckford/Loli/Colten on:?07/16/2024 11:20 AM EDT
== END 2024-07-16 11:15 | disposition home or self-care (01) ==
LOC: HO.HMCHD 10:35
PROVIDERS: PCP Internal Medicine; Visit Provider Internal Medicine
DX: E11.9 Type 2 diabetes mellitus without complications (principal)

== ENCOUNTER → 2024-07-16 10:35 | Outpatient (BNVA) | payer OTHER, SELFPAY | PROVIDERS: PCP Internal Medicine; Visit Provider Internal Medicine | DX: Z13.89 Encounter for screening for other disorder (principal) ==

== ENCOUNTER 2024-10-25 09:07 | Outpatient (REF) | payer OTHER, SELFPAY ==
--- OUTSIDE RECORDS SUMMARY | 2024-10-25 10:10 | XMS_ITS | Continuity of Care Document ---
Author Organization [facility] [address] [place] [address] Phone [phone] Care Team Providers Care Preform Machine Operator Name Role Phone Guille More M.D. Care Team Information Re ceiver [phone] Gentry Medellin MD Care Team Information R eceiver [phone] Problems Active Problems Provider Date Bilateral cyst of breasts ROSALINDA Curran Ons et: 12/26/2023 Type 1 diabetes mellitus ROSALINDA Curran Onse t: 12/26/2023 Social History Type Date Description Comments Sex Female Sex Unknown Tobacco Use Start: Unknown Patient is a cur rent cigarette smoker, smokes every day Tobacco Use Reviewed: 12/26/23 Patient is a current cigar smoker, smokes every day Smoking Status Reviewed: 12/26/23 Patient is a current cigar smoker, smokes every day Medications Active Medications SIG Qnty Indications Order ing Provider Date Freestyle Garo 2 Plus/Sensor/Flash Glucose Monitor SystemMisc 1 sensor to skin every fifteen days as directed dx: e11.9 3units Jessica Isaac M.D. 09/27/2024 Glucagon Emergency Kit For Low Blood Obrjh6cr Kit use 1 injection subcutaneously for low blood sugar as needed per instructions 2unnenita Isaac M.D. 04/11/2024 Humalog [id number]/ML Solution Pen-Inject Inject 6 Units Subcutaneously Before Meals 15units Jessica Isaac M.D. 12/26/2023 Freestyle Garo 2/Ulster/Flash Glucose Monitoring Bropit3Isoind Device use as directed with sensors 1units Jessica Wellington-Trey, M.D. 12/26/2023 Onetouch UltraStrips Use 1 Strip as Directed Three Times A Day Guille More M.D. Atorvastatin [id number] Tablets Take 1 Tablet By Mouth Everyday AT Bedtime Guille More M.D. Onetouch Ultra 2w/Device Kit Use Three Times A Day Guille More M.D. Meaykabyrl877ci Capsules Take 1 Capsule By Mouth Every Day Unknown Bzxpvdf53nq Tablets Take 1 Tablet By Mouth Every Day Unknown Aspirin 8181mg Tablets DR 1 by mouth every day Unknown 000 History Medications Freestyle Garo 2/Ulster/Flash Glucose Monitoring Kwapse8Ipyjve Device use as directed with sensors 1rita Isaac M.D. 12/26/2023 - 12/26/2023 Freestyle Garo 2/Sensor/Flash Glucose Monitoring Cpwsnw8Jojtjr Misc 1 sensor to skin every fourteen days as directed 6unnenita Isaac M.D. 12/26/2023 - 09/27/2024 Vital Signs Date Vital Result Comment 07/04/2024 1:33pm BP Systolic 140 mmHg BP Diastolic 60 mmHg Heart Rate 83 /min Height 64 inches 5'4 Weight 149.50 lb BMI (Body Mass Index) 25.7 kg/m2 Results Test Acquired Date Facility Test Result H/L Range Note Glucose Fingerstick 07/04/2024 Inhouse Glucose Fingerstick 136 Hemoglobin A1c 07/04/2024 Inhouse Hemoglobin A1c 8.8% Glucose Fingerstick 04/11/2024 Inhouse Glucose Fingerstick 111 Az-65 Autoantibody 12/26/2023 [facility] Az-65 Autoantibody 256.4 U/mL High 0.0-5.0 1 Ia-2 Autoantibodies 12/26/2023 [facility] Ia-2 Autoantibodies >120 U/mL High 2 Glucose Fingerstick 12/26/2023 Inhouse Glucose Fingerstick 226 Hemoglobin A1c 12/26/2023 Inhouse Hemoglobin A1c 8.6% 1 Results confirmed on dilution. 2 Reference Range: <7.5 Negative > or = 7.5 Positive Procedures Date Code Description Status 07/04/2024 57482 Glucose Monitoring Interpeta tion And Report Completed 11/23/2023 NSHOWOFF No Show Office Visit Complet ed Medical Devices Description No Information Available Encounters Type Date Location Provider Dx Diagnosis Office Visit 07/04/2024 1:15p Main Office ROSALINDA Curran E10.39 Type 1 diabet es w oth diabetic ophthalmic complication E10.42 Type 1 diabetes jef itus with diabetic polyneuropathy E11.621 Type 2 diabetes jef itus with foot ulcer Assessments Date Code Description Provider 07/04/2024 E10.39 Type 1 diabetes mellitus with other diabetic ophthalmic complication ROSALINDA Curran 07/04/2024 E10.42 Type 1 diabetes mellitus with diabetic polyneuropathy ROSALINDA Curran 07/04/2024 E11.621 Type 2 diabetes mellitus wit h foot ulcer ROSALINDA Curran Plan of Treatment Future Appointment(s):* 11/06/2024 8:30 am - Lolita Kim NP at Main Office 04/11/2024 - ROSALINDA Curran* 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
--- OUTSIDE RECORDS SUMMARY | 2024-10-25 10:10 | XMS_ITS | Encounter Summary ---
Author Organization [facility] Address [address] [place] [address] Care Team Providers Care Sports Teacher Name Role Phone Guille More MD Primary Care Provider [phone]- [phone] Encounter Details Date Type Department Care Team (Latest Contact Info) Description 04/03/2024 Lab Requisition [facility] - Main Lab [address] [facility] [place] [address] Senthil Cardoso PA [address] [facility] [address] [place], [place] [id number] Chronic fatigue, unspecified; Mixed hyperlipidemia; Encounter for general adult medical examination with abnormal findings; Type 2 diabetes mellitus without complications (CMS/HCC V24, CMS/HCC V28) Social History Tobacco Use Types Packs/Day Years [...] Hold for add-ons. 04/03/2024 8:01 PM EST [facility] Comment:Auto resulted. Blood Venous blood specimen / Unknown 04/03/2024 04/03/2024 6:01 PM EST us Senthil TELLEZ LAB BLOOD ORDERABLES Final Res ult [facility] [address] [place] [address], * (ABNORMAL) CBC auto differential (04/03/2024 12:00 AM EST) WBC 12.2(H) 4.8 - 10.8 K/[facility] LAB HEMETOLOGY METHOD 04/03/2024 7:20 PM [facility] RBC 4.30 3.80 - 4.80 M/mcL LAB HEMETOLOGY METHOD 04/03/2024 7:20 PM [facility] Hemoglobin 13.6 11.5 - 16.0 g/dL LAB HEMETOLOGY METHOD 04/03/2024 7:20 PM [facility] Hematocrit 39.9 35.0 - 47.0 % LAB HEMETOLOGY METHOD 04/03/2024 7:20 PM [facility] MCV 93.4 79.0 - 98.0 FL LAB HEMETOLOGY METHOD 04/03/2024 7:20 PM [facility] MCH 31.9 27.0 - 32.0 pcg LAB HEMETOLOGY METHOD 04/03/2024 7:20 PM [facility] MCHC 34.1 32.0 - 37.0 g/dL LAB HEMETOLOGY METHOD 04/03/2024 7:20 PM [facility] RDW 12.6 11.0 - 15.0 % LAB HEMETOLOGY METHOD 04/03/2024 7:20 PM [facility] Platelets 294 130 - 400 K/mcL LAB HEMETOLOGY METHOD 04/03/2024 7:20 PM [facility] MPV 10.8 7.0 - 11.0 FL LAB HEMETOLOGY METHOD 04/03/2024 7:20 PM [facility] NRBC 0.0 <1.0 % LAB HEMETOLOGY METHOD 04/03/2024 7:20 PM [facility] NRBC Absolute 0.00 <0.10 K/mcL LAB HEMETOLOGY METHOD 04/03/2024 7:20 PM [facility] Neutrophils Relative 54.0 % LAB HEMETOLOGY METHOD 04/03/2024 7:20 PM [facility] Lymphocytes Relative 33.9 % LAB HEMETOLOGY METHOD 04/03/2024 7:20 PM [facility] Monocytes Relative 8.0 % LAB HEMETOLOGY METHOD 04/03/2024 7:20 PM [facility] Eosinophils Relative 2.7 % LAB HEMETOLOGY METHOD 04/03/2024 7:20 PM [facility] Basophils Relative 1.1 % LAB HEMETOLOGY METHOD 04/03/2024 7:20 PM [facility] Immature Granulocytes Relative 0.3 % LAB HEMETOLOGY METHOD 04/03/2024 7:20 PM [facility] Neutrophils Absolute 6.58 1.50 - 7.00 K/mcL LAB HEMETOLOGY METHOD 04/03/2024 7:20 PM [facility] Lymphocytes Absolute 4.13 1.00 - 5.00 K/mcL LAB HEMETOLOGY METHOD 04/03/2024 7:20 PM [facility] Monocytes Absolute 0.98 0.20 - 1.00 K/mcL LAB HEMETOLOGY METHOD 04/03/2024 7:20 PM [facility] Eosinophils Absolute 0.33 0.00 - 0.50 K/mcL LAB HEMETOLOGY METHOD 04/03/2024 7:20 PM [facility] Basophils Absolute 0.13 0.00 - 0.20 K/mcL LAB HEMETOLOGY METHOD 04/03/2024 7:20 PM [facility] Immature Granulocytes Absolute 0.04(H) 0.00 - 0.03 K/mcL LAB HEMETOLOGY METHOD 04/03/2024 7:20 PM [facility] Blood Venous blood specimen / Unknown 04/03/2024 04/03/2024 6:01 PM EST us Senthil TELLEZ LAB BLOOD ORDERABLES Final Res ult Performing Organization Address [facility]/ZIP Co de Phone Number [facility] [address] [place] [address], [place] [phone] * Thyroid stimulating hormone (04/03/2024 12:00 AM EST) TSH 2.00 0.40 - 4.00 mcIU/mL LAB CHEMISTRY METHOD 04/03/2024 7:20 PM EST [facility] Blood Venous blood specimen / Unknown 04/03/2024 04/03/2024 6:01 PM EST us Senthil TELLEZ LAB BLOOD ORDERABLES Final Res ult Performing Organization Address [facility] Co de Phone Number [facility] [address] [place] [address], [place] [phone] * Thyroxine free (04/03/2024 12:00 AM EST) Free T4 0.98 0.70 - 1.80 ng/dL LAB CHEMISTRY METHOD 04/03/2024 7:20 PM EST [facility] Blood Venous blood specimen / Unknown 04/03/2024 04/03/2024 6:01 PM EST us Senthil TELLEZ LAB BLOOD ORDERABLES Final Res ult Performing Organization Address [facility]/ZIP Co de Phone Number [facility] [address] [place] [address], [place] [phone] * Lipid panel with reflex to direct LDL (04/03/2024 12:00 AM EST) Cholesterol 157 0 - 200 mg/dL LAB CHEMISTRY METHOD 04/03/2024 7:19 PM EST [facility] Triglycerides 88 0 - 150 mg/dL LAB CHEMISTRY METHOD 04/03/2024 7:19 PM EST [facility] HDL 66 >=40 mg/dL LAB CHEMISTRY METHOD 04/03/2024 7:19 PM [facility] LDL Calculated 73 0 - 100 mg/dL LAB CHEMISTRY METHOD 04/03/2024 7:19 PM [facility] VLDL Cholesterol Erich 17.6 mg/dL LAB CHEMISTRY METHOD 04/03/2024 7:19 PM [facility] Non HDL Chol. (LDL+VLDL) 91 <145 mg/dL LAB CHEMISTRY METHOD 04/03/2024 7:19 PM [facility] Chol/HDL Ratio 2.4 0.0 - 4.4 LAB CHEMISTRY METHOD 04/03/2024 7:19 PM [facility] Blood Venous blood specimen / Unknown 04/03/2024 04/03/2024 6:01 PM EST Senthil TELLEZ LAB BLOOD ORDERABLES Final Res ult [facility] [address] [place] [address], [place] [phone] * Comprehensive metabolic panel (04/03/2024 12:00 AM EST) Sodium 140 133 - 145 mmol/L LAB CHEMISTRY METHOD 04/03/2024 7:24 PM [facility] Comment:Results verified by repeat testing Potassium 5.0 3.5 - 5.5 mmol/L LAB CHEMISTRY METHOD 04/03/2024 7:24 PM [facility] Chloride 107 96 - 110 mmol/L LAB CHEMISTRY METHOD 04/03/2024 7:24 PM [facility] CO2 30 21 - 32 mmol/L LAB CHEMISTRY METHOD 04/03/2024 7:24 PM [facility] Anion Gap 3 3 - 11 LAB CHEMISTRY METHOD 04/03/2024 7:24 PM [facility] Glucose 75 70 - 100 mg/dL LAB CHEMISTRY METHOD 04/03/2024 7:24 PM [facility] BUN 12 5 - 25 mg/dL LAB CHEMISTRY METHOD 04/03/2024 7:24 PM [facility] Creatinine 0.73 0.50 - 1.10 mg/dL LAB CHEMISTRY METHOD 04/03/2024 7:24 PM [facility] eGFR 94 >=60 mL/min/1. 73m2 LAB CHEMISTRY METHOD 04/03/2024 7:24 PM [facility] Comment:Calculation based on the Chronic Kidney Disease Epidemiology Collaboration (CKD-EPI) equation refit without adjustment for race. BUN/Creatinine Ratio 16.4 LAB CHEMISTRY METHOD 04/03/2024 7:24 PM [facility] Calcium 9.8 8.5 - 10.5 mg/dL LAB CHEMISTRY METHOD 04/03/2024 7:24 PM [facility] AST (SGOT) 23 10 - 42 unit/L LAB CHEMISTRY METHOD 04/03/2024 7:24 PM [facility] ALT (SGPT) 32 10 - 60 unit/L LAB CHEMISTRY METHOD 04/03/2024 7:24 PM [facility] Alkaline Phosphatase 64 42 - 121 unit/L LAB CHEMISTRY METHOD 04/03/2024 7:24 PM [facility] Total Protein 7.0 6.0 - 8.0 g/dL LAB CHEMISTRY METHOD 04/03/2024 7:24 PM [facility] Albumin 3.9 3.2 - 5.0 g/dL LAB CHEMISTRY METHOD 04/03/2024 7:24 PM [facility] Total Bilirubin 0.6 0.0 - 1.4 mg/dL LAB CHEMISTRY METHOD 04/03/2024 7:24 PM [facility] Blood Venous blood specimen / Unknown 04/03/2024 04/03/2024 6:01 PM EST Senthil TELLEZ LAB BLOOD ORDERABLES Final Res ult [facility] [address] [place] [address], documented in this encounter Visit Diagnoses Diagnosis Chronic fatigue, unspecified Mixed hyperlipidemia Encounter for general adult medical examination with abnormal findings Type 2 diabetes mellitus without complications (CMS/HCC V24, CMS/HCC V28) documented in this encounter Care Teams Sports Teacher Relationship Specialty Start Date End Date Guille More MD [address] [address] PCP - General Internal Medicine 01/19/24 documented as of this encounter
--- OUTSIDE RECORDS SUMMARY | 2024-10-25 10:11 | XMS_ITS | Patient Health Record ---
Author Organization [facility] Address [address] [facility] [place] [address] Care Team Providers Care Fertilizer Supervisor Name Role Phone Guille More MD Primary Care Provider Stefanie Sena Unavailable [phone] Allergies Allergen (clinical drug ingredient) Drug/Non Drug [...] Negative Encounters Encounter Location Date Provider Diagnosis [facility] [address] [place] [address] 07/06/2024 Stefanie Boston Plan Of Treatment No Information Insurance Providers Payer Name Payer Address Payer Phone Subscriber Number Group Number Insured Name Patient Relationship to Insured Coverage Start Date Coverage End Date [facility] [address] [address] [place] [phone] [id number] Karen Kamara Self - patient is the insured Medical (General) History Medical History History ICD Code asthma Back,Hip,and Knee pain type II diabetes Barretts Neuropathy
== END 2024-10-25 09:08 | disposition home or self-care (01) ==
LOC: HO.MAMMO 09:07
PROVIDERS: PCP Internal Medicine; Visit Provider Internal Medicine
DX: Z12.31 Encounter for screening mammogram for malignant neoplasm of breast (principal)
CPT/HCPCS: 77063; 77067

== ENCOUNTER → 2024-10-25 09:15 | Outpatient (BNV) | payer OTHER, SELFPAY | PROVIDERS: PCP Internal Medicine; Visit Provider Internal Medicine | DX: Z12.31 Encounter for screening mammogram for malignant neoplasm of breast (principal) | CPT/HCPCS: 77063; 77067 ==

== ENCOUNTER → 2024-11-23 10:06 | Outpatient (BNV) | payer OTHER, SELFPAY | PROVIDERS: Visit Provider Radiology Diagnostic Radiology | DX: M15.4 Erosive (osteo)arthritis (principal) | CPT/HCPCS: 73630 ==

== ENCOUNTER 2024-12-04 09:26 | Outpatient (REF) | payer OTHER, SELFPAY ==
--- OUTSIDE RECORDS SUMMARY | 2023-12-08 09:30 | XMS_ITS ---
Author Organization [facility], [place] Address [address] [facility] 1 [place] [address] Care Team Providers Care Brisket Puller Name Role Phone Migration, Provider Unavailable Unavailable REASON FOR VISIT Follow-up Appt Encounters Encounter Location Date Provider Diagnosis [facility], [address] [address] 12/08/2023 Provider Migration Plan Of Treatment No Information Progress Notes * VOLODYMYR GATES MDOB:1965 (59 yo F)Acc No.[id number]:12/08/2023 Progress Notes Patient: Miladys VOLODYMYR GAYLE Provider: Loida Apodaca :1965 A ge:58 Y S ex:Female Date:12/08/2023 Address:[address] [place], [place] [phone] Subjective: * Chief Complaints: * F ollow-up Appt * Ocular Surgical History: Objective: Vision Examination: * Electronic signature of Prov ider Migration on 12/04/2024 at 10:14 AM EDT Sign off status: Pending * Provider: Loida carpenter Migration Date: 1 Generated for Bonita beckford/Loli/eTransmitting on: 0 12/04/2024 10:14 AM EDT
--- OUTSIDE RECORDS SUMMARY | 2024-01-19 06:15 | XMS_ITS ---
Author Organization [facility], [place] Address [address] [facility] 1 [place] [address] Care Team Providers Care Credit Collections Clerk Name Role Phone Migration, Provider Unavailable Unavailable REASON FOR VISIT Sick Visit Encounters Encounter Location Date Provider Diagnosis [facility], [address] [address] 01/19/2024 Provider Migration Plan Of Treatment No Information Progress Notes * VOLODYMYR GATES MDOB:1965 (59 yo F)Acc No.[id number]:01/19/2024 Progress Notes Patient: Miladys VOLODYMYR GAYLE Provider: Loida Apodaca :1965 A ge:58 Y S ex:Female Date:01/19/2024 Address:[address] [place], [place] [phone] Subjective: * Chief Complaints: * S ick Visit * Ocular Surgical History: Objective: Vision Examination: * Electronic signature of Prov ider Migration on 12/04/2024 at 10:14 AM EDT Sign off status: Pending * Provider: Loida carpenter Migration Date: 03/20/2023 Generated for Bonita beckford/Loli/eTransmitting on: 0 12/04/2024 10:14 AM EDT
--- OUTSIDE RECORDS SUMMARY | 2024-03-13 09:30 | XMS_ITS ---
Author Organization [facility], [place] Address [address] [facility] 1 [place] [address] Care Team Providers Care Endodontist Name Role Phone Migration, Provider Unavailable Unavailable REASON FOR VISIT CPX Encounters Encounter Location Date Provider Diagnosis [facility], [address] [address] 03/13/2024 Provider Migration Plan Of Treatment No Information Progress Notes * VOLODYMYR GATES MDOB:1965 (59 yo F)Acc No.[id number]:03/13/2024 Progress Notes Patient: Miladys VOLODYMYR GAYLE Provider: Loida Apodaca :1965 A ge:58 Y S ex:Female Date:03/13/2024 Address:[address] [place], [place] [phone] Subjective: * Chief Complaints: * C PX * Ocular Surgical History: Objective: Vision Examination: * Electronic signature of Prov ider Migration on 12/04/2024 at 10:14 AM EDT Sign off status: Pending * Provider: Loida carpenter Migration Date: 0 03/13/2024 Generated for Bonita beckford/Loli/eTransmitting on: 0 12/04/2024 10:14 AM EDT
--- OUTSIDE RECORDS SUMMARY | 2024-04-03 09:30 | XMS_ITS ---
Author Organization [facility], [place] Address [address] [facility] 1 [place] [address] Care Team Providers Care Remote Recruiter Name Role Phone Senthil Cardoso Unavailable [phone] REASON FOR VISIT CPX Encounters Encounter Location Date Provider Diagnosis [facility], [address] [address] 04/03/2024 Senthil Cardoso Plan Of Treatment No Information Progress Notes * VOLODYMYR GATES MDOB:1965 (59 yo F)Acc No.[id number]:04/03/2024 Progress Notes Patient: Miladys GAYLE VOLODYMYR [place] Provider: Leeann TELLEZ :1965 A ge:58 Y S ex:Female Date:04/03/2024 Address:[address] [place], [place] [phone] Subjective: * Chief Complaints: * C PX * Ocular Surgical History: Objective: Vision Examination: * Electronic signature of Ishaan Cardoso PA-C on 12/04/2024 at 10:14 AM EDT Sign off status: Pending * Provider: Leeann TELLEZ Date: 04/03/2024 Generated for Bonita ng/Fagracie/eTransmitting on: 0 12/04/2024 10:14 AM EDT
--- OUTSIDE RECORDS SUMMARY | 2024-04-03 09:30 | XMS_ITS ---
Author Organization [facility], [place] Address [address] [facility] 1 [place] [address] Care Team Providers Care Running Rigger Name Role Phone Migration, Provider Unavailable Unavailable REASON FOR VISIT CPX Encounters Encounter Location Date Provider Diagnosis [facility], [address] [address] 04/03/2024 Provider Migration Plan Of Treatment No Information Progress Notes * VOLODYMYR GATES MDOB:1965 (59 yo F)Acc No.[id number]:04/03/2024 Progress Notes Patient: Miladys VOLODYMYR GAYLE Provider: Loida Apodaca :1965 A ge:58 Y S ex:Female Date:04/03/2024 Address:[address] [place], [place] [phone] Subjective: * Chief Complaints: * C PX * Ocular Surgical History: Objective: Vision Examination: * Electronic signature of Prov ider Migration on 12/04/2024 at 10:13 AM EDT Sign off status: Pending * Provider: Loida carpenter Migration Date: 0 04/03/2024 Generated for Bonita beckford/Loli/eTransmitting on: 0 12/04/2024 10:13 AM EDT
--- OUTSIDE RECORDS SUMMARY | 2024-07-10 09:00 | XMS_ITS ---
Author Organization [facility] [place] Address [address] [facility] [place] [address] Care Team Providers Care Sitecore Developer Name Role Phone Guille More MD Primary Care Provider Stefanie Sena Unavailable [phone] Allergies Allergen (clinical drug ingredient) Drug/Non Drug [...] Negative Encounters Encounter Location Date Provider Diagnosis [facility] [place] [address] [place] [phone] 07/10/2024 Stefanie Darvin Plan Of Treatment No Information Progress Notes * Sunil KAMARAOB:1965 ( 59 yo F)Acc No.[id number]:07/10/2024 Progress Notes Patient: Karen CHAPMAN Provider: Bernabe Boston DPM :1965 A ge:59 Y S ex:Female Date:07/10/2024 Address: [address] [place], [place] Pcp:Guille More MD Subjective: * Chief Complaints: [...] enies. C ardiovascular: Pacemaker d enies. M SILVERER d enies. W PW d enies. C [...] 0 07/10/2024 Generated for Bonita Palafox/Colten on: 0 12/04/2024 10:14 AM EDT
--- NOTE | ~2024-12-04 | MM_ITS ---
EXAMINATION(S): 1. MM DIAGNOSTIC DIGITAL BREAST TOMOSYNTHESIS, RIGHT 2. Targeted ultrasound of the right breast CLINICAL INFORMATION: Callback from screening for right breast asymmetry on the MLO view COMPARISON: Comparison made to multiple prior, most recent October 25, 2024, and most remote October 17, 2022. TECHNIQUE: Digital breast tomosynthesis is performed in full field ML 90 degrees along with computer-aided detection (CAD). Synthesized 2D images are generated from the tomosynthesis. Spot compression tomosynthesis were obtained. FINDINGS: BREAST COMPOSITION: The breasts are heterogeneously dense, which may obscure small masses. RIGHT BREAST: Asymmetry in the central breast slightly lower at about 5.5-a 6.0 cm from the nipple is pliable but persists on today's images. Targeted ultrasound of the right breast was performed at the location of the mammographic finding. The survey shows a 1.3 x 0.7 x 1.3 cm hypoechoic solid mass at 8 o'clock position 5 cm from the nipple. No internal vascularity demonstrated with color Doppler evaluation. MM/MM tomosynthesis added views R IMPRESSION: RIGHT BREAST: 1.3 cm solid mass at 8 o'clock position 5 cm from the nipple. Probably benign. A 6-month follow-up ultrasound is recommended. ASSESSMENT: BI-RADS: Category 3: Probably benign RECOMMENDATION: 6 Month F/U Results were provided to the patient at time of visit by the technologist. This patient's information was entered into a reminder system with a target due date for their next mammogram. Electronically signed by: Talisha Moreno MD 12/04/2024 12:24 PM EDT
--- OUTSIDE RECORDS SUMMARY | 2024-12-04 10:13 | XMS_ITS | Encounter Summary ---
Author Organization [facility] Address [address] [place] [address] Care Team Providers Care Contract Assistant Name Role Phone Guille More MD Primary Care Provider [phone]- [phone] Encounter Details Date Type Department Care Team (Latest Contact Info) Description 04/03/2024 Lab Requisition [facility] - Main Lab [address] [facility] [place] [address] Senthil Cardoso PA [address] [facility] [address] [place], [place] [id number] Chronic fatigue, unspecified; Mixed hyperlipidemia; Encounter for [...] Hold for add-ons. 04/03/2024 8:01 PM EST [facility] Comment:Auto resulted. Blood Venous blood specimen / Unknown 04/03/2024 04/03/2024 6:01 PM EST us Senthil TELLEZ LAB BLOOD ORDERABLES Final Res ult [facility]) [facility] [address] [place] [address], * (ABNORMAL) CBC auto differential (04/03/2024 12:00 AM EST) WBC 12.2(H) 4.8 - 10.8 K/[facility] LAB HEMETOLOGY METHOD 04/03/2024 7:20 PM [facility] RBC 4.30 3.80 - 4.80 M/mcL LAB HEMETOLOGY METHOD 04/03/2024 7:20 PM [facility] Hemoglobin 13.6 11.5 - 16.0 g/dL LAB HEMETOLOGY METHOD 04/03/2024 7:20 PM [facility] Hematocrit 39.9 35.0 - 47.0 % LAB HEMETOLOGY METHOD 04/03/2024 7:20 PM [facility] MCV 93.4 79.0 - 98.0 FL LAB HEMETOLOGY METHOD 04/03/2024 7:20 PM [facility] MCH 31.9 27.0 - 32.0 pcg LAB HEMETOLOGY METHOD 04/03/2024 7:20 PM [facility] MCHC 34.1 32.0 - 37.0 g/dL LAB HEMETOLOGY METHOD 04/03/2024 7:20 PM [facility] RDW 12.6 11.0 - 15.0 % LAB HEMETOLOGY METHOD 04/03/2024 7:20 PM [facility] Platelets 294 130 - 400 K/mcL LAB HEMETOLOGY METHOD 04/03/2024 7:20 PM [facility] MPV 10.8 7.0 - 11.0 FL LAB HEMETOLOGY METHOD 04/03/2024 7:20 PM [facility] NRBC 0.0 <1.0 % LAB HEMETOLOGY METHOD 04/03/2024 7:20 PM [facility] NRBC Absolute 0.00 <0.10 K/mcL LAB HEMETOLOGY METHOD 04/03/2024 7:20 PM [facility] Neutrophils Relative 54.0 % LAB HEMETOLOGY METHOD 04/03/2024 7:20 PM [facility] Lymphocytes Relative 33.9 % LAB HEMETOLOGY METHOD 04/03/2024 7:20 PM [facility] Monocytes Relative 8.0 % LAB HEMETOLOGY METHOD 04/03/2024 7:20 PM [facility] Eosinophils Relative 2.7 % LAB HEMETOLOGY METHOD 04/03/2024 7:20 PM [facility] Basophils Relative 1.1 % LAB HEMETOLOGY METHOD 04/03/2024 7:20 PM [facility] Immature Granulocytes Relative 0.3 % LAB HEMETOLOGY METHOD 04/03/2024 7:20 PM [facility] Neutrophils Absolute 6.58 1.50 - 7.00 K/mcL LAB HEMETOLOGY METHOD 04/03/2024 7:20 PM [facility] Lymphocytes Absolute 4.13 1.00 - 5.00 K/mcL LAB HEMETOLOGY METHOD 04/03/2024 7:20 PM [facility] Monocytes Absolute 0.98 0.20 - 1.00 K/mcL LAB HEMETOLOGY METHOD 04/03/2024 7:20 PM [facility] Eosinophils Absolute 0.33 0.00 - 0.50 K/mcL LAB HEMETOLOGY METHOD 04/03/2024 7:20 PM [facility] Basophils Absolute 0.13 0.00 - 0.20 K/mcL LAB HEMETOLOGY METHOD 04/03/2024 7:20 PM [facility] Immature Granulocytes Absolute 0.04(H) 0.00 - 0.03 K/mcL LAB HEMETOLOGY METHOD 04/03/2024 7:20 PM [facility] Blood Venous blood specimen / Unknown 04/03/2024 04/03/2024 6:01 PM EST us Senthil TELLEZ LAB BLOOD ORDERABLES Final Res ult Performing Organization Address [facility]/ZIP Co de Phone Number [facility] [address] [place] [address], [place] [phone] * Thyroid stimulating hormone (04/03/2024 12:00 AM EST) TSH 2.00 0.40 - 4.00 mcIU/mL LAB CHEMISTRY METHOD 04/03/2024 7:20 PM EST [facility] Blood Venous blood specimen / Unknown 04/03/2024 04/03/2024 6:01 PM EST us Senthil TELLEZ LAB BLOOD ORDERABLES Final Res ult Performing Organization Address [facility] Co de Phone Number [facility] [address] [place] [address], [place] [phone] * Thyroxine free (04/03/2024 12:00 AM EST) Free T4 0.98 0.70 - 1.80 ng/dL LAB CHEMISTRY METHOD 04/03/2024 7:20 PM EST [facility] Blood Venous blood specimen / Unknown 04/03/2024 04/03/2024 6:01 PM EST us Senthil TELLEZ LAB BLOOD ORDERABLES Final Res ult Performing Organization Address [facility]/ZIP Co de Phone Number [facility] [address] [place] [address], [place] [phone] * Lipid panel with reflex to direct LDL (04/03/2024 12:00 AM EST) Cholesterol 157 0 - 200 mg/dL LAB CHEMISTRY METHOD 04/03/2024 7:19 PM EST [facility] Triglycerides 88 0 - 150 mg/dL LAB CHEMISTRY METHOD 04/03/2024 7:19 PM EST [facility] HDL 66 >=40 mg/dL LAB CHEMISTRY METHOD 04/03/2024 7:19 PM [facility] LDL Calculated 73 0 - 100 mg/dL LAB CHEMISTRY METHOD 04/03/2024 7:19 PM [facility] VLDL Cholesterol Erich 17.6 mg/dL LAB CHEMISTRY METHOD 04/03/2024 7:19 PM [facility] Non HDL Chol. (LDL+VLDL) 91 <145 mg/dL LAB CHEMISTRY METHOD 04/03/2024 7:19 PM [facility] Chol/HDL Ratio 2.4 0.0 - 4.4 LAB CHEMISTRY METHOD 04/03/2024 7:19 PM [facility] Blood Venous blood specimen / Unknown 04/03/2024 04/03/2024 6:01 PM EST Senthil TELLEZ LAB BLOOD ORDERABLES Final Res ult [facility] [address] [place] [address], [place] [phone] * Comprehensive metabolic panel (04/03/2024 12:00 AM EST) Sodium 140 133 - 145 mmol/L LAB CHEMISTRY METHOD 04/03/2024 7:24 PM [facility] Comment:Results verified by repeat testing Potassium 5.0 3.5 - 5.5 mmol/L LAB CHEMISTRY METHOD 04/03/2024 7:24 PM [facility] Chloride 107 96 - 110 mmol/L LAB CHEMISTRY METHOD 04/03/2024 7:24 PM [facility] CO2 30 21 - 32 mmol/L LAB CHEMISTRY METHOD 04/03/2024 7:24 PM [facility] Anion Gap 3 3 - 11 LAB CHEMISTRY METHOD 04/03/2024 7:24 PM [facility] Glucose 75 70 - 100 mg/dL LAB CHEMISTRY METHOD 04/03/2024 7:24 PM [facility] BUN 12 5 - 25 mg/dL LAB CHEMISTRY METHOD 04/03/2024 7:24 PM [facility] Creatinine 0.73 0.50 - 1.10 mg/dL LAB CHEMISTRY METHOD 04/03/2024 7:24 PM [facility] eGFR 94 >=60 mL/min/1. 73m2 LAB CHEMISTRY METHOD 04/03/2024 7:24 PM [facility] Comment:Calculation based on the Chronic Kidney Disease Epidemiology Collaboration (CKD-EPI) equation refit without adjustment for race. BUN/Creatinine Ratio 16.4 LAB CHEMISTRY METHOD 04/03/2024 7:24 PM [facility] Calcium 9.8 8.5 - 10.5 mg/dL LAB CHEMISTRY METHOD 04/03/2024 7:24 PM [facility] AST (SGOT) 23 10 - 42 unit/L LAB CHEMISTRY METHOD 04/03/2024 7:24 PM [facility] ALT (SGPT) 32 10 - 60 unit/L LAB CHEMISTRY METHOD 04/03/2024 7:24 PM [facility] Alkaline Phosphatase 64 42 - 121 unit/L LAB CHEMISTRY METHOD 04/03/2024 7:24 PM [facility] Total Protein 7.0 6.0 - 8.0 g/dL LAB CHEMISTRY METHOD 04/03/2024 7:24 PM [facility] Albumin 3.9 3.2 - 5.0 g/dL LAB CHEMISTRY METHOD 04/03/2024 7:24 PM [facility] Total Bilirubin 0.6 0.0 - 1.4 mg/dL LAB CHEMISTRY METHOD 04/03/2024 7:24 PM [facility] Blood Venous blood specimen / Unknown 04/03/2024 04/03/2024 6:01 PM EST Senthil TELLEZ LAB BLOOD ORDERABLES Final Res ult [facility] [address] [place] [address], documented in this encounter Visit Diagnoses Diagnosis Chronic fatigue, unspecified Mixed hyperlipidemia Encounter for general adult medical examination with abnormal findings Type 2 diabetes mellitus without complications (CMS/HCC V24, CMS/HCC V28) documented in this encounter Care Teams Contract Assistant Relationship Specialty Start Date End Date Guille More MD [address] [address] PCP - General Internal Medicine 01/19/24 documented as of this encounter
--- OUTSIDE RECORDS SUMMARY | 2024-12-04 10:14 | XMS_ITS | Patient Health Record ---
Author Organization [facility] [place] Address [address] [facility] [address] [place] [address] Care Team Providers Care Doctor Of Dental Surgery Name Role Phone Senthil Cardoso Unavailable [phone] Migration, Provider Unavailable Unavailable Reason For Referral No Information Encounters Encounter Location Date Provider Diagnosis [facility], [address] [address] 12/08/2023 Provider Migration [facility], [address] [address] 01/19/2024 Provider Migration [facility], [address] [address] 03/13/2024 Provider Migration [facility], [place] [address] [address] 04/03/2024 Senthil Cardoso [address] [address] 04/03/2024 Provider Migration Plan Of Treatment No Information Insurance Providers Payer Name Payer Address Payer Phone Subscriber Number Group Number Insured Name Patient Relationship to Insured Coverage Start Date Coverage End Date [facility] [address] [place] [address] [id number] Self - patient is the insured
--- OUTSIDE RECORDS SUMMARY | 2024-12-04 10:14 | XMS_ITS | Clinical Summary ---
Author Organization [facility] Address [address] [place] [phone] Phone Care Team Providers Care Cleaner And Preparer Name Role Phone Guille Walker MD Primary Care Provider [phone]- [phone] Social History Tobacco Use Types Packs/Day Years [...] Health Maintenance Due Date Last Done Comments Colorectal Cancer Screening: Colonoscopy 1965 Diabetes: Annual Foot Exam 05/23/1973 Diabetes: Annual Retina Eye Exam 05/23/1973 DTaP,Tdap,and Td Vaccines (1 - Tdap) 05/23/1982 Pneumococcal Vaccine: 50+ Years (1 of 2 - PCV) 05/23/1982 Cervical Cancer Screening: P ap Smear 05/23/1984 Zoster Vaccines (1 of 2) 05/23/2013 HIV Screening 02/07/2022 Hepatitis C Screening 02/07/2022 Social Influencers of Health Screening 02/07/2022 Breast Cancer Screening 12/23/2022 12/24/19 21, 10/17/2018, 08/09/2017 RSV Immunization Adult Patients (1 - Risk 60-74 years 1-dose series) 2023 Diabetes: Annual Urine Albumin-Creatinine Ratio (uACR) 01/19/2024 Depression Screening 03/07/2024 Diabetes: Blood Sugar Contro l Test (HGBA1C) 07/18/2024 01/19/2024 COVID-19 Vaccine (2024-2 6 season) 2024 04/07/2021, 08/18/2020, 07/28/2020 Influenza Vaccine (#1) 2024 Diabetes: Annual GFR (Glomerular Filtration Rate) 04/03/2025 [...] Procedure Name Priority Date/Time Associated Diagnosis Comments COMPREHENSIVE METABOLIC PANEL Routine 04/03/2024 12:00 AM [...] Recently Relevant to Health Maintenance Results * Lipid panel with reflex to direct LDL (04/03/2024 12:00 AM EST) Cholesterol 157 0 - 200 mg/dL LAB CHEMISTRY METHOD 04/03/2024 7:19 PM [facility] Triglycerides 88 0 - 150 mg/dL LAB CHEMISTRY METHOD 04/03/2024 7:19 PM [facility] HDL 66 >=40 mg/dL LAB CHEMISTRY METHOD 04/03/2024 7:19 PM [facility] LDL Calculated 73 0 - 100 mg/dL LAB CHEMISTRY METHOD 04/03/2024 7:19 PM [facility] VLDL Cholesterol Erich 17.6 mg/dL LAB CHEMISTRY METHOD 04/03/2024 7:19 PM [facility] Non HDL Chol. (LDL+VLDL) 91 <145 mg/dL LAB CHEMISTRY METHOD 04/03/2024 7:19 PM [facility] Chol/HDL Ratio 2.4 0.0 - 4.4 LAB CHEMISTRY METHOD 04/03/2024 7:19 PM [facility] Blood Venous blood specimen / Unknown 04/03/2024 04/03/2024 6:01 PM EST us Senthil TELLEZ LAB BLOOD ORDERABLES Final Res ult [facility] [address] [place] [address], * Comprehensive metabolic panel (04/03/2024 12:00 AM EST) Sodium 140 133 - 145 mmol/L LAB CHEMISTRY METHOD 04/03/2024 7:24 PM [facility] Comment:Results verified by repeat testing Potassium 5.0 3.5 - 5.5 mmol/L LAB CHEMISTRY METHOD 04/03/2024 7:24 PM [facility] Chloride 107 96 - 110 mmol/L LAB CHEMISTRY METHOD 04/03/2024 7:24 PM [facility] CO2 30 21 - 32 mmol/L LAB CHEMISTRY METHOD 04/03/2024 7:24 PM [facility] Anion Gap 3 3 - 11 LAB CHEMISTRY METHOD 04/03/2024 7:24 PM [facility] Glucose 75 70 - 100 mg/dL LAB CHEMISTRY METHOD 04/03/2024 7:24 PM [facility] BUN 12 5 - 25 mg/dL LAB CHEMISTRY METHOD 04/03/2024 7:24 PM [facility] Creatinine 0.73 0.50 - 1.10 mg/dL LAB CHEMISTRY METHOD 04/03/2024 7:24 PM [facility] eGFR 94 >=60 mL/min/1. 73m2 LAB CHEMISTRY METHOD 04/03/2024 7:24 PM [facility] Comment:Calculation based on the Chronic Kidney Disease Epidemiology Collaboration (CKD-EPI) equation refit without adjustment for race. BUN/Creatinine Ratio 16.4 LAB CHEMISTRY METHOD 04/03/2024 7:24 PM [facility] Calcium 9.8 8.5 - 10.5 mg/dL LAB CHEMISTRY METHOD 04/03/2024 7:24 PM [facility] AST (SGOT) 23 10 - 42 unit/L LAB CHEMISTRY METHOD 04/03/2024 7:24 PM [facility] ALT (SGPT) 32 10 - 60 unit/L LAB CHEMISTRY METHOD 04/03/2024 7:24 PM [facility] Alkaline Phosphatase 64 42 - 121 unit/L LAB CHEMISTRY METHOD 04/03/2024 7:24 PM [facility] Total Protein 7.0 6.0 - 8.0 g/dL LAB CHEMISTRY METHOD 04/03/2024 7:24 PM [facility] Albumin 3.9 3.2 - 5.0 g/dL LAB CHEMISTRY METHOD 04/03/2024 7:24 PM [facility] Total Bilirubin 0.6 0.0 - 1.4 mg/dL LAB CHEMISTRY METHOD 04/03/2024 7:24 PM EST [facility] Blood Venous blood specimen / Unknown 04/03/2024 04/03/2024 6:01 PM EST Senthil TELLEZ LAB BLOOD ORDERABLES Final Res ult Performing Organization Address City/[facility]/ZIP Co de Phone Number [facility] [address] [place] [address], [place] [phone] * (ABNORMAL) Hemoglobin A1c (01/19/2024 12:00 AM EST) Hemoglobin A1C 8.7(H) <6.5 % LAB CHEMISTRY METHOD 01/19/2024 10:25 PM EST [facility] Mean Bld Glu Estim. 203 mg/dL LAB CHEMISTRY METHOD 01/19/2024 10:25 PM EST [facility] Blood Venous blood specimen / Unknown 01/19/2024 01/19/2024 5:35 PM EST Guille Walker MD LAB BLOOD ORDERABLES Final Result Performing Organization Address [facility]/ZIP Co de Phone Number [facility] [address] [place] [address], [place] [phone] * GHAZALA SCREENING DIGITAL (12/23/2020 5:13 PM EDT) Anatomical Region Laterality Modality Mammography 12/23/2020 12:5 7 PM EDT Narrative 12/23/2020 5:[address] [facility] Diagnostic Imaging Department [address] [place] [address] Patient: VOLODYMYR KAMARA /Age/Sex: 1965 - 55 - F Unit#: [id number] Location/Status: [facility] CLI Mnemonic/Ordering Site: [facility] Ordering Physician: GUILLE WALKER MD Ghazala Screening Digital - 12/23/20 - 1630 History: Bilateral breast cancer screening. Family history of breast cancer affecting sister at age 53. Previous benign breast biopsies. Technique: Bilateral digital mammography. Conventional CC and MLO projections with tomosynthesis MLO views and computer aided detection. Comparison: [facility] 10/17/2018, dating back to 09/03/2010. Breast density: Breast density: Heterogeneous, potentially obscuring small lesions, category c density (as calculated by [employer] Volpara software). Findings: Benign calcifications and tissue asymmetries are without concerning interval change. There is no suspicious group of microcalcification, suspicious asymmetry, suspicious mass, architectural distortion or concerning change in breast tissue density. Impression: No mammographic evidence of malignancy. BIRADS Category 2: Benign Findings, 3342F [address], [address] A negative mammogram in the face of a suspicious abnormality does not exclude the possibility of malignancy nor alter the indications for biopsy. Note: Patient information entered into a reminder system with a target due date for the next mammogram; PQRI II 7024F Dictating Physician: RASHAD REAVES MD Electronically Signed by: RASHAD REAVES MD Dic Date/Time: 12/23/201709 Sign date/Time: 12/23/201712 Procedure Note Rashad Reaves MD - 02/24/2022 [facility] Diagnostic Imaging Department [address] [place] [address] Patient: VOLODYMYR KAMARA /Age/Sex: 1965 - 55 - F Unit#: [id number] Location/Status: SPDIMAM/REG CLI Mnemonic/Ordering Site: [facility] Ordering Physician: GUILLE WALKER MD Ghazala Screening Digital - 12/23/20 - 1631 History: Bilateral breast cancer screening. Family history of breastcancer affecting sister at age 53. Previous benign breast biopsies. Technique: Bilateral digital mammography. Conventional CC and MLOprojections with tomosynthesis MLO views and computer aided detection. Comparison: [facility] 10/17/2018, dating back to 09/03/2010. Breast density: Breast density: Heterogeneous, potentially obscuringsmall lesions, category c density (as calculated by [employer] Vol[employer] software). Findings: Benign calcifications and tissue asymmetries are without concerninginterval change. There is no suspicious group of microcalcification, suspicious asymmetry, suspicious mass, architectural distortion or concerning changein breast tissue density. Impression: No mammographic evidence of malignancy. BIRADS Category 2: Benign Findings, 3342F 39592, [address] A negative mammogram in the face of a suspicious abnormality does notexclude the possibility of malignancy nor alter the indications for biopsy. Note: Patient information entered into a reminder system with a targetdue date for the next mammogram; PQRI II 8011H Dictating Physician: RASHAD REAVES MD Electronically Signed by: RASHAD REAVES MD Dic Date/Time: 12/23/201709 Sign date/Time: 12/23/201712 Guille Walker MD IMG BI PROCEDURES Final Res ult from Last 3 Months or Most Recently Relevant to Health Maintenance Insurance [facility] [place] [id number] Care Teams Cleaner And Preparer Relationship Specialty Start Date End Date Guille Walker MD [address] [address] PCP - General Internal Medicine 01/19/24
--- OUTSIDE RECORDS SUMMARY | 2024-12-04 10:14 | XMS_ITS | Encounter Summary ---
Author Organization [facility] Address [address] [place] [address] Care Team Providers Care Head Grower Name Role Phone Guille More MD Primary Care Provider [phone]- [phone] Encounter Details Date Type Department Care Team (Latest Contact Info) Description 01/19/2024 Lab Requisition [facility] - Main Lab [address] [facility] [place] [phone] Guille More MD 299 [facility] [address] [place], [place] [id number] Type 2 diabetes mellitus without complications (CMS/HCC [...] EST Type 2 diabetes mellitus without complications (CMS/[facility]) documented in this encounter Results * (ABNORMAL) Fructosamine (01/19/2024 12:00 AM EST) Fructosamine 487(H) 151 - 300 umol /L 01/23/2024 1:06 PM EST [facility] Comment: Test performed at [facility], [address], [place] [address] Viri Tompkins MD, PhD - Livestock Auctioneer Blood Venous blood specimen / Unknown 01/19/2024 01/19/2024 5:35 PM EST Guille More MD LAB BLOOD ORDERABLES Final Result Performing Organization Address City/[facility]/ZIP Co de Phone Number [facility] [address] [place] [address] * (ABNORMAL) Hemoglobin A1c (01/19/2024 12:00 AM EST) Hemoglobin A1C 8.7(H) <6.5 % LAB CHEMISTRY METHOD 01/19/2024 10:25 PM EST [facility] Mean Bld Glu Estim. 203 mg/dL LAB CHEMISTRY METHOD 01/19/2024 10:25 PM EST [facility] Blood Venous blood specimen / Unknown 01/19/2024 01/19/2024 5:35 PM EST Guille More MD LAB BLOOD ORDERABLES Final Result Performing Organization Address [facility] Co de Phone Number [facility] [address] [place] [address], documented in this encounter Visit Diagnoses Diagnosis Type 2 diabetes mellitus without complications (CMS/HCC V24, CMS/HCC V28) documented in this encounter Care Teams Head Grower Relationship Specialty Start Date End Date Guille More MD [address] [address] PCP - General Internal Medicine 01/19/24 documented as of this encounter
--- OUTSIDE RECORDS SUMMARY | 2024-12-04 10:15 | XMS_ITS | Patient Health Record ---
[facility] Address [address] [place] [address] Care Team Providers Care Global Process Owner Name Role Phone Guille More MD Primary Care Provider Stefanie Sena Unavailable [phone] Allergies Allergen (clinical drug ingredient) Drug/Non Drug [...] Negative Encounters Encounter Location Date Provider Diagnosis [facility] [address] [place] [address] 07/06/2024 Stefanie Boston Plan Of Treatment No Information Insurance Providers Payer Name Payer Address Payer Phone Subscriber Number Group Number Insured Name Patient Relationship to Insured Coverage Start Date Coverage End Date [facility] [address] [address] [place] [phone] [id number] Karen Kamara Self - patient is the insured Medical (General) History Medical History History ICD Code asthma Back,Hip,and Knee pain type II diabetes Barretts Neuropathy
== END 2024-12-04 09:27 | disposition home or self-care (01) ==
LOC: HO.MAMMO 09:26
PROVIDERS: PCP Internal Medicine; Visit Provider Internal Medicine
DX: N64.89 Other specified disorders of breast (principal)
CPT/HCPCS: 76642; 77061; 77065

== ENCOUNTER → 2024-12-04 09:30 | Outpatient (BNV) | payer OTHER, SELFPAY | PROVIDERS: PCP Internal Medicine; Visit Provider Radiology Body Imaging | DX: N63.13 Unspecified lump in the right breast, lower outer quadrant (principal) | CPT/HCPCS: 76642; 77061; 77065 ==

== ENCOUNTER 2025-01-14 10:07 | Outpatient (AMB) | payer OTHER, SELFPAY ==
--- NOTE | 2025-01-14 09:36 | A.OFFPC_ITS ---
Vital Signs 01/14/25 10:26 Height 5 ft 5 in Weight 63.957 kg BMI 23.5 BP 102/40 L Blood Pressure Location Lt brachial Position Sitting Respiration 18 Pulse 75 Pulse Source Pulse Oximeter Temp 97.5 F Temp Source Temporal Artery Scan Pulse Oximetry (%) 96 Oxygen Delivery Method Room Air Intake Visit Reasons: Routine F/U Dr Leblanc - see comments Water Safety Instructor Required: No Accompanied by: Self / Same As Patient Allergies erythromycin base (ERYTHROMYCIN BASE) Allergy (Unknown, Verified 01/14/25 09:36) VOMITING Tobacco use date assessed: 07/16/24 Dental Screening Dental Screen Date: 07/16/24 HPI HPI Comments History of Present Illness Details 59-year-old female with type 2 diabetes, diabetic polyneuropathy, diabetic foot ulcer, hyperlipidemia, Frank's esophagus presenting to the office today for management of chronic conditions and to establish care. Diabetic Ulcer- follows with Dr. Roblero in [facility] [place] care. Healing now after 8 months. No drainage or foul odor Diabetic polyneuropathy- on lyrica. Legs give out from under her which makes Barretts esophagus- following with [facility]. Not on a ppi, has been OK without it Type 2 DM- 36 units lantus, humalog on ss. Last A1c 9,1%. Reports a lot of lows Not always complaint with DM diet, not interested in telecommunications network planner at all PAD- [facility], s/p angio, on xarelto, asa, has been out of atorvastatin Smoking- 3/4 PPD, has chantix . Declines lung cancer screening at this time Concerns: Cough ongoing 3 week, clear production. Sneezing, occ lighthheadnes congetion, PND. No fevers, chills, sore throat. Using mucinex D Health Maintenance: Due for sports medicine masseur Last mammogram 11/2024-right breast with 1.3 cm solid mass at 08:00 5 cm from the nipple, likely benign but six-month follow-up ultrasound recommended Last screening colonoscopy 05/2021 with 5 year follow-up advised, adenoma and family history of colon cancer ROS: General: No fevers, malaise, unintentional weight loss HEENT: No blurred vision, diplopia. See HPI Cardiovascular: No chest pain, palpitations, or leg edema Respiratory: No shortness of breath, wheezing. See HPI GI: No abdominal pain, nausea, vomiting, diarrhea, constipation, melena, hematochezia : No dysuria, hematuria, increased urinary frequency, decreased urinary output MSK: No myalgia, back pain Neuro: No headaches, weakness, paresthesias Skin: No rashes or lesions EXAM: Constitutional - Awake and Alert, No apparent distress Eyes - PERRL Ears-external ears normal, canals clear, tympanic membranes pearly stephens and intact Mouth/oropharynx-no erythema, tonsillar edema, exudate Neck-bilateral submandibular nodes Cardiovascular - S1S2, RRR, No edema Respiratory - Normal lung expansion, Normal respiratory effort, No respiratory distress, CTA bilaterally Extremities - no calf tenderness bilaterally, no swelling Skin - Warm/Dry Neurological - Alert & oriented x3 Psychological - Appropriate affect . [facility] Medical History (Updated 01/14/25 @ 11:25 by ROSALINDA Fabian) Diabetic foot ulcer Diabetic polyneuropathy PAD (peripheral artery disease) Neuropathy High cholesterol Barretts syndrome Diabetes Surgical History History of colonoscopy (~05/06/21) Family History (Updated 07/16/24 @ 10:51 by Meliv Valladares MA) Father Liver cirrhosis Pre-diabetes Mother Heart problem Cancer of kidney Social History Housing: House Alcohol intake: current Alcohol intake frequency: a few times a month Patient Tobacco Use Status: Current everyday Tobacco user Cigarettes Per Day: 10 e-Cigarette/Vaping Use: Currently Using service: No Current occupational status: disabled Cognitive needs: No Hearing needs: No Vision needs: Yes (reading glasses) Questionnaire Thrive Questionnaire Date Thrive assessed: 07/16/24 STORMY-7 AMB Questionnaire STORMY-7 Date STORMY - 7 assessed: 07/16/24 Source: Developed by Drs. Linwood Chopra, Katy Lambert, Varinder Nevarez and colleagues, with an educational fahad from [employer]. Physical exam (Primary Care) Vital Signs: Last Vital Signs Temp 97.5 F 01/14/25 10:26 Pulse 75 01/14/25 10:26 Resp 18 01/14/25 10:26 BP 102/40 L 01/14/25 10:26 Pulse Ox 96 01/14/25 10:26 Oxygen Delivery Method Room Air 01/14/25 10:26 BMI result Body Mass Index 23.5 Tobacco/Smoking Status: Tobacco use Status Tobacco use date assessed 07/16/24 01/14/25 09:37 Patient Tobacco Use Status Current everyday Tobacco 01/14/25 09:37 e-Cigarette/Vaping Use Currently Using 01/14/25 09:37 Are you ready to quit: Yes Thrive Assessment: Date of Thrive Assessment Date Thrive assessed 07/16/24 01/14/25 09:37 Coding Level of Care Code Est Pt Level 4 (11407) Complex EM visit Add On G2211 Diagnoses Diabetes E11.9 High cholesterol E78.00 PAD (peripheral artery disease) I73.9 Diabetic polyneuropathy E11.42 Assessment & Plan Assessment & Plan (1) Diabetes: Code(s): E11.9 - Type 2 diabetes mellitus without complications Category: Medical Plan: Hemoglobin A1c ordered, previously uncontrolled. Continue following with [facility] endocrinology. Continue on 36 units of Lantus and Humalog on sliding scale. (2) High cholesterol: Code(s): E78.00 - Pure hypercholesterolemia, unspecified Category: Medical (3) PAD (peripheral artery disease): Code(s): I73.9 - Peripheral vascular disease, unspecified Category: Medical Plan: Stable, no claudication. Follow-up with [facility] as scheduled. Continue Xarelto, aspirin, atorvastatin (4) Diabetic polyneuropathy: Code(s): E11.42 - Type 2 diabetes mellitus with diabetic polyneuropathy Category: Medical Plan: Continue Lyrica 75 mg at bedtime. Continue working on diabetic control. Plan Follow-up in the office in 4 months. We will recheck labs in about 4 weeks given she has been off of her atorvastatin. Referred to sports medicine masseur as she is overdue for annual/ Orders: Orders Basic Metabolic Panel 4 Weeks E11.9 - Type 2 diabetes mellitus without complications, E78.00 - Pure hypercholesterolemia, unspecified, I73.9 - Peripheral vascular disease, unspecified Liver Panel 4 Weeks E11.9 - Type 2 diabetes mellitus without complications, E78.00 - Pure hypercholesterolemia, unspecified, I73.9 - Peripheral vascular disease, unspecified Microalbumin, Random (w Creat) 4 Weeks E11.9 - Type 2 diabetes mellitus without complications, E78.00 - Pure hypercholesterolemia, unspecified, I73.9 - Peripheral vascular disease, unspecified Lipid Panel 4 Weeks E11.9 - Type 2 diabetes mellitus without complications, E78.00 - Pure hypercholesterolemia, unspecified, I73.9 - Peripheral vascular disease, unspecified Hemoglobin A1c 4 Weeks E11.9 - Type 2 diabetes mellitus without complications, E78.00 - Pure hypercholesterolemia, unspecified, I73.9 - Peripheral vascular disease, unspecified Referrals FILLING HAND Referral Z12.4 - Encounter for screening for malignant neoplasm of cervix Medications: New loratadine (Allergy Relief (loratadine)) 10 mg PO DAILY 90 caps 0RF fluticasone propionate 50 mcg/actuation (Allergy Relief (fluticasone)) administer into each nostril 1 spray intranasal BID 16 grams 5RF atorvastatin 20 mg PO DAILY 90 tabs 3RF
[2025-01-14 10:26] VITALS: BP 102/40; PULSE 75; RESP 18; TEMP 36.4; O2SAT 96; BMI 23.5
--- OUTSIDE RECORDS SUMMARY | 2025-01-14 11:49 | XMS_ITS | Clinical Summary ---
Author Organization [facility] Address [address] [place] [phone] Phone Care Team Providers Care City Administrator Name Role Phone Guille Walker MD Primary Care Provider [phone]- [phone] Social History Tobacco Use Types Packs/Day Years [...] Cervical Cancer Screening: P ap Smear 05/23/1984 RSV Immunization Adult Patients (1 - Risk 50-74 years 1-dose series) 05/23/2013 Zoster Vaccines (1 of 2) 05/23/2013 HIV Screening 02/07/2022 Hepatitis C Screening 02/07/2022 Social Influencers of Health Screening 02/07/2022 Breast Cancer Screening 12/23/2022 12/24/19 21, 10/17/2018, 08/09/2017 Diabetes: Annual Urine Albumin-Creatinine Ratio (uACR) 01/19/2024 Depression Screening 03/07/2024 Diabetes: Blood Sugar Contro l Test (HGBA1C) 07/18/2024 01/19/2024 COVID-19 Vaccine ( - 2024-2 6 season) 2024 04/07/2021, 08/18/2020, 07/28/2020 Influenza [...] mg/dL LAB CHEMISTRY METHOD 04/03/2024 7:19 PM [facility] Triglycerides 88 0 - 150 mg/dL LAB CHEMISTRY METHOD 04/03/2024 7:19 PM [facility] HDL 66 >=40 mg/dL LAB CHEMISTRY METHOD 04/03/2024 7:19 PM [facility] LDL Calculated 73 0 - 100 mg/dL LAB CHEMISTRY METHOD 04/03/2024 7:19 PM [facility] VLDL Cholesterol Erich 17.6 mg/dL LAB CHEMISTRY METHOD 04/03/2024 7:19 PM [facility] Non HDL Chol. (LDL+VLDL) 91 <145 mg/dL LAB CHEMISTRY METHOD 04/03/2024 7:19 PM [facility] Chol/HDL Ratio 2.4 0.0 - 4.4 LAB CHEMISTRY METHOD 04/03/2024 7:19 PM [facility] Blood Venous blood specimen / Unknown 04/03/2024 04/03/2024 6:01 PM EST us Senthil TELLEZ LAB BLOOD ORDERABLES Final Res ult [facility] [address] [place] [address], * Comprehensive metabolic panel (04/03/2024 12:00 AM EST) Sodium 140 133 - 145 mmol/L LAB CHEMISTRY METHOD 04/03/2024 7:24 PM [facility] Comment:Results verified by repeat testing Potassium 5.0 3.5 - 5.5 mmol/L LAB CHEMISTRY METHOD 04/03/2024 7:24 PM [facility] Chloride 107 96 - 110 mmol/L LAB CHEMISTRY METHOD 04/03/2024 7:24 PM [facility] CO2 30 21 - 32 mmol/L LAB CHEMISTRY METHOD 04/03/2024 7:24 PM [facility] Anion Gap 3 3 - 11 LAB CHEMISTRY METHOD 04/03/2024 7:24 PM [facility] Glucose 75 70 - 100 mg/dL LAB CHEMISTRY METHOD 04/03/2024 7:24 PM [facility] BUN 12 5 - 25 mg/dL LAB CHEMISTRY METHOD 04/03/2024 7:24 PM [facility] Creatinine 0.73 0.50 - 1.10 mg/dL LAB CHEMISTRY METHOD 04/03/2024 7:24 PM [facility] eGFR 94 >=60 mL/min/1. 73m2 LAB CHEMISTRY METHOD 04/03/2024 7:24 PM [facility] Comment:Calculation based on the Chronic Kidney Disease Epidemiology Collaboration (CKD-EPI) equation refit without adjustment for race. BUN/Creatinine Ratio 16.4 LAB CHEMISTRY METHOD 04/03/2024 7:24 PM [facility] Calcium 9.8 8.5 - 10.5 mg/dL LAB CHEMISTRY METHOD 04/03/2024 7:24 PM [facility] AST (SGOT) 23 10 - 42 unit/L LAB CHEMISTRY METHOD 04/03/2024 7:24 PM [facility] ALT (SGPT) 32 10 - 60 unit/L LAB CHEMISTRY METHOD 04/03/2024 7:24 PM [facility] Alkaline Phosphatase 64 42 - 121 unit/L LAB CHEMISTRY METHOD 04/03/2024 7:24 PM [facility] Total Protein 7.0 6.0 - 8.0 g/dL LAB CHEMISTRY METHOD 04/03/2024 7:24 PM [facility] Albumin 3.9 3.2 - 5.0 g/dL LAB CHEMISTRY METHOD 04/03/2024 7:24 PM [facility] Total Bilirubin 0.6 0.0 - 1.4 mg/dL LAB CHEMISTRY METHOD 04/03/2024 7:24 PM EST [facility] Blood Venous blood specimen / Unknown 04/03/2024 04/03/2024 6:01 PM EST Senthil TELLEZ LAB BLOOD ORDERABLES Final Res ult Performing Organization Address City/[facility]/ZIP Co de Phone Number [facility] [address] [place] [address], [place] [phone] * (ABNORMAL) Hemoglobin A1c (01/19/2024 12:00 AM EST) Hemoglobin A1C 8.7(H) <6.5 % LAB CHEMISTRY METHOD 01/19/2024 10:25 PM EST [facility] Mean Bld Glu Estim. 203 mg/dL LAB CHEMISTRY METHOD 01/19/2024 10:25 PM EST [facility] Blood Venous blood specimen / Unknown 01/19/2024 01/19/2024 5:35 PM EST Guille Walker MD LAB BLOOD ORDERABLES Final Result Performing Organization Address [facility]/ZIP Co de Phone Number [facility] [address] [place] [address], [place] [phone] * GHAZALA SCREENING DIGITAL (12/23/2020 5:13 PM EDT) Anatomical Region Laterality Modality Mammography 12/23/2020 12:5 7 PM EDT Narrative 12/23/2020 5:13 PM EDT [facility] Diagnostic Imaging Department [address] [place] [address] Patient: VOLODYMYR KAMARA /Age/Sex: 1965 - 55 - F Unit#: [id number] Location/Status: [facility] CLI Mnemonic/Ordering Site: [facility] Ordering Physician: GUILLE WALKER MD Ghazala Screening Digital - 12/23/20 - 1630 History: Bilateral breast cancer screening. Family history of breast cancer affecting sister at age 53. Previous benign breast biopsies. Technique: Bilateral digital mammography. Conventional CC and MLO projections with tomosynthesis MLO views and computer aided detection. Comparison: [facility] 10/17/2018, dating back to 09/03/2010. Breast density: Breast density: Heterogeneous, potentially obscuring small lesions, category c density (as calculated by [employer] Volpara software). Findings: Benign calcifications and tissue asymmetries are without concerning interval change. There is no suspicious group of microcalcification, suspicious asymmetry, suspicious mass, architectural distortion or concerning change in breast tissue density. Impression: No mammographic evidence of malignancy. BIRADS Category 2: Benign Findings, 3342F 285[address], [address] A negative mammogram in the face of a suspicious abnormality does not exclude the possibility of malignancy nor alter the indications for biopsy. Note: Patient information entered into a reminder system with a target due date for the next mammogram; PQRI II 7080F Dictating Physician: RASHAD REAVES MD Electronically Signed by: RASHAD REAVES MD Dic Date/Time: 12/23/201709 Sign date/Time: 12/23/201712 Procedure Note Rashad Reaves MD - 02/24/2022 [facility] Diagnostic Imaging Department [address] [place], [place] [id number] Patient: VOLODYMYR KAMARA /Age/Sex: 1965 - 55 - F Unit#: [id number] Location/Status: SPDIMAM/REG CLI Mnemonic/Ordering Site: [facility] Ordering Physician: GUILLE WALKER MD Ghazala Screening Digital - 12/23/20 - 1631 History: Bilateral breast cancer screening. Family history of breastcancer affecting sister at age 53. Previous benign breast biopsies. Technique: Bilateral digital mammography. Conventional CC and MLOprojections with tomosynthesis MLO views and computer aided detection. Comparison: [facility] 10/17/2018, dating back to 09/03/2010. Breast density: Breast density: Heterogeneous, potentially obscuringsmall lesions, category c density (as calculated by [employer] Volpara software). Findings: Benign calcifications and tissue asymmetries are without concerninginterval change. There is no suspicious group of microcalcification, suspicious asymmetry, suspicious mass, architectural distortion or concerning changein breast tissue density. Impression: No mammographic evidence of malignancy. BIRADS Category 2: Benign Findings, 3342F [address], [address] A negative mammogram in the face of a suspicious abnormality does notexclude the possibility of malignancy nor alter the indications for biopsy. Note: Patient information entered into a reminder system with a targetdue date for the next mammogram; PQRI II 3836U Dictating Physician: RASHAD REAVES MD Electronically Signed by: RASHAD REAVES MD Dic Date/Time: 12/23/201709 Sign date/Time: 12/23/201712 Guille Walker MD IMG BI PROCEDURES Final Res ult from Last 3 Months or Most Recently Relevant to Health Maintenance Insurance [facility] [place] [id number] Care Teams City Administrator Relationship Specialty Start Date End Date Guille Walker MD [address] [place] [phone] PCP - General Internal Medicine 01/19/24
--- OUTSIDE RECORDS SUMMARY | 2025-01-14 11:49 | XMS_ITS | Encounter Summary ---
Author Organization [facility] Address [address] [place] [address] Care Team Providers Care Data Programmer Name Role Phone Guille More MD Primary Care Provider [phone]- [phone] Encounter Details Date Type Department Care Team (Latest Contact Info) Description 04/03/2024 Lab Requisition [facility] - Main Lab [address] [place] [address] Senthil Cardoso PA [address] [place], [place] [id number] Chronic fatigue, unspecified; Mixed hyperlipidemia; Encounter for [...] TELLEZ LAB BLOOD ORDERABLES Final Res ult [facility] [address] [place] [address], * (ABNORMAL) CBC auto differential (04/03/2024 12:00 AM EST) WBC 12.2(H) 4.8 - 10.8 [facility] HEMETOLOGY METHOD 04/03/2024 7:20 PM [facility] RBC 4.30 3.80 - 4.80 M/mcL LAB HEMETOLOGY METHOD 04/03/2024 7:20 PM [facility] Hemoglobin 13.6 11.5 - 16.0 g/dL LAB HEMETOLOGY METHOD 04/03/2024 7:20 PM [facility] Hematocrit 39.9 35.0 - 47.0 % LAB HEMETOLOGY METHOD 04/03/2024 7:20 PM [facility] MCV 93.4 79.0 - 98.0 FL LAB HEMETOLOGY METHOD 04/03/2024 7:20 PM [facility] MCH 31.9 27.0 - 32.0 pcg LAB HEMETOLOGY METHOD 04/03/2024 7:20 PM [facility] MCHC 34.1 32.0 - 37.0 g/dL LAB HEMETOLOGY METHOD 04/03/2024 7:20 PM [facility] RDW 12.6 11.0 - 15.0 % LAB HEMETOLOGY METHOD 04/03/2024 7:20 PM [facility] Platelets 294 130 - 400 K/mcL LAB HEMETOLOGY METHOD 04/03/2024 7:20 PM [facility] MPV 10.8 7.0 - 11.0 FL LAB HEMETOLOGY METHOD 04/03/2024 7:20 PM [facility] NRBC 0.0 <1.0 % LAB HEMETOLOGY METHOD 04/03/2024 7:20 PM [facility] NRBC Absolute 0.00 <0.10 K/mcL LAB HEMETOLOGY METHOD 04/03/2024 7:20 PM [facility] Neutrophils Relative 54.0 % LAB HEMETOLOGY METHOD 04/03/2024 7:20 PM [facility] Lymphocytes Relative 33.9 % LAB HEMETOLOGY METHOD 04/03/2024 7:20 PM [facility] Monocytes Relative 8.0 % LAB HEMETOLOGY METHOD 04/03/2024 7:20 PM [facility] Eosinophils Relative 2.7 % LAB HEMETOLOGY METHOD 04/03/2024 7:20 PM [facility] Basophils Relative 1.1 % LAB HEMETOLOGY METHOD 04/03/2024 7:20 PM [facility] Immature Granulocytes Relative 0.3 % LAB HEMETOLOGY METHOD 04/03/2024 7:20 PM [facility] Neutrophils Absolute 6.58 1.50 - 7.00 K/mcL LAB HEMETOLOGY METHOD 04/03/2024 7:20 PM [facility] Lymphocytes Absolute 4.13 1.00 - 5.00 K/mcL LAB HEMETOLOGY METHOD 04/03/2024 7:20 PM [facility] Monocytes Absolute 0.98 0.20 - 1.00 K/mcL LAB HEMETOLOGY METHOD 04/03/2024 7:20 PM [facility] Eosinophils Absolute 0.33 0.00 - 0.50 K/mcL LAB HEMETOLOGY METHOD 04/03/2024 7:20 PM [facility] Basophils Absolute 0.13 0.00 - 0.20 K/mcL LAB HEMETOLOGY METHOD 04/03/2024 7:20 PM [facility] Immature Granulocytes Absolute 0.04(H) 0.00 - 0.03 K/mcL LAB HEMETOLOGY METHOD 04/03/2024 7:20 PM [facility] Blood Venous blood specimen / Unknown 04/03/2024 04/03/2024 6:01 PM EST us Senthil TELLEZ LAB BLOOD ORDERABLES Final Res ult Performing Organization Address [facility]/ZIP Co de Phone Number [facility] [address] [place] [address], [place] [phone] * Thyroid stimulating hormone (04/03/2024 12:00 AM EST) TSH 2.00 0.40 - 4.00 mcIU/mL LAB CHEMISTRY METHOD 04/03/2024 7:20 PM EST [facility] Blood Venous blood specimen / Unknown 04/03/2024 04/03/2024 6:01 PM EST us Senthil TELLEZ LAB BLOOD ORDERABLES Final Res ult Performing Organization Address [facility] Co de Phone Number [facility] [address] [place] [address], [place] [phone] * Thyroxine free (04/03/2024 12:00 AM EST) Free T4 0.98 0.70 - 1.80 ng/dL LAB CHEMISTRY METHOD 04/03/2024 7:20 PM EST [facility] Blood Venous blood specimen / Unknown 04/03/2024 04/03/2024 6:01 PM EST us Senthil TELLEZ LAB BLOOD ORDERABLES Final Res ult Performing Organization Address [facility]/ZIP Co de Phone Number [facility] [address] [place] [address], [place] [phone] * Lipid panel with reflex to direct LDL (04/03/2024 12:00 AM EST) Cholesterol 157 0 - 200 mg/dL LAB CHEMISTRY METHOD 04/03/2024 7:19 PM EST [facility] Triglycerides 88 0 - 150 mg/dL LAB CHEMISTRY METHOD 04/03/2024 7:19 PM EST [facility] HDL 66 >=40 mg/dL LAB CHEMISTRY METHOD 04/03/2024 7:19 PM [facility] LDL Calculated 73 0 - 100 mg/dL LAB CHEMISTRY METHOD 04/03/2024 7:19 PM [facility] VLDL Cholesterol Erich 17.6 mg/dL LAB CHEMISTRY METHOD 04/03/2024 7:19 PM [facility] Non HDL Chol. (LDL+VLDL) 91 <145 mg/dL LAB CHEMISTRY METHOD 04/03/2024 7:19 PM [facility] Chol/HDL Ratio 2.4 0.0 - 4.4 LAB CHEMISTRY METHOD 04/03/2024 7:19 PM [facility] Blood Venous blood specimen / Unknown 04/03/2024 04/03/2024 6:01 PM EST Senthil TELLEZ LAB BLOOD ORDERABLES Final Res ult [facility] [address] [place] [address], [place] [phone] * Comprehensive metabolic panel (04/03/2024 12:00 AM EST) Sodium 140 133 - 145 mmol/L LAB CHEMISTRY METHOD 04/03/2024 7:24 PM [facility] Comment:Results verified by repeat testing Potassium 5.0 3.5 - 5.5 mmol/L LAB CHEMISTRY METHOD 04/03/2024 7:24 PM [facility] Chloride 107 96 - 110 mmol/L LAB CHEMISTRY METHOD 04/03/2024 7:24 PM [facility] CO2 30 21 - 32 mmol/L LAB CHEMISTRY METHOD 04/03/2024 7:24 PM [facility] Anion Gap 3 3 - 11 LAB CHEMISTRY METHOD 04/03/2024 7:24 PM [facility] Glucose 75 70 - 100 mg/dL LAB CHEMISTRY METHOD 04/03/2024 7:24 PM [facility] BUN 12 5 - 25 mg/dL LAB CHEMISTRY METHOD 04/03/2024 7:24 PM [facility] Creatinine 0.73 0.50 - 1.10 mg/dL LAB CHEMISTRY METHOD 04/03/2024 7:24 PM [facility] eGFR 94 >=60 mL/min/1. 73m2 LAB CHEMISTRY METHOD 04/03/2024 7:24 PM [facility] Comment:Calculation based on the Chronic Kidney Disease Epidemiology Collaboration (CKD-EPI) equation refit without adjustment for race. BUN/Creatinine Ratio 16.4 LAB CHEMISTRY METHOD 04/03/2024 7:24 PM [facility] Calcium 9.8 8.5 - 10.5 mg/dL LAB CHEMISTRY METHOD 04/03/2024 7:24 PM [facility] AST (SGOT) 23 10 - 42 unit/L LAB CHEMISTRY METHOD 04/03/2024 7:24 PM [facility] ALT (SGPT) 32 10 - 60 unit/L LAB CHEMISTRY METHOD 04/03/2024 7:24 PM [facility] Alkaline Phosphatase 64 42 - 121 unit/L LAB CHEMISTRY METHOD 04/03/2024 7:24 PM [facility] Total Protein 7.0 6.0 - 8.0 g/dL LAB CHEMISTRY METHOD 04/03/2024 7:24 PM [facility] Albumin 3.9 3.2 - 5.0 g/dL LAB CHEMISTRY METHOD 04/03/2024 7:24 PM [facility] Total Bilirubin 0.6 0.0 - 1.4 mg/dL LAB CHEMISTRY METHOD 04/03/2024 7:24 PM [facility] Blood Venous blood specimen / Unknown 04/03/2024 04/03/2024 6:01 PM EST Senthil TELLEZ LAB BLOOD ORDERABLES Final Res ult [facility] H[facility]PITAL LAB [address] [place] [address], documented in this encounter Visit Diagnoses Diagnosis Chronic fatigue, unspecified Mixed hyperlipidemia Encounter for general adult medical examination with abnormal findings Type 2 diabetes mellitus without complications (CMS/HCC V24, CMS/HCC V28) documented in this encounter Care Teams Data Programmer Relationship Specialty Start Date End Date Guille More MD [address] [address] PCP - General Internal Medicine 01/19/24 documented as of this encounter
--- OUTSIDE RECORDS SUMMARY | 2025-01-14 11:49 | XMS_ITS | Encounter Summary ---
Author Organization [facility] Address [address] [place] [address] Care Team Providers Care Configuration Management Analyst Name Role Phone Guille More MD Primary Care Provider +1- [phone] Encounter Details Date Type Department Care Team (Latest Contact Info) Description 01/19/2024 Lab Requisition [facility] - Main Lab [address] [facility] [place] [id number] Guille More MD 299 [facility] [address] [place], [place] [id number] Type 2 diabetes mellitus without complications (CMS/HCC [...] EST Type 2 diabetes mellitus without complications (CMS/[facility]) documented in this encounter Results * (ABNORMAL) Fructosamine (01/19/2024 12:00 AM EST) Fructosamine 487(H) 151 - 300 umol /L 01/23/2024 1:06 PM EST [facility] Comment: Test performed at [facility], [address], [place] [address] Viri Tompkins MD, PhD - Vp Global Blood Venous blood specimen / Unknown 01/19/2024 01/19/2024 5:35 PM EST Guille More MD LAB BLOOD ORDERABLES Final Result Performing Organization Address City/[facility]/ZIP Co de Phone Number [facility] [address] [place] [address] * (ABNORMAL) Hemoglobin A1c (01/19/2024 12:00 AM [...] BLOOD ORDERABLES Final Result Performing Organization Address [facility] Co de Phone Number [facility] [address] [place] [address], documented in this encounter Visit Diagnoses Diagnosis Type 2 diabetes mellitus without complications (CMS/HCC V24, CMS/HCC V28) documented in this encounter Care Teams Configuration Management Analyst Relationship Specialty Start Date End Date Guille More MD [address] [address] PCP - General Internal Medicine 01/19/24 documented as of this encounter
== END 2025-01-14 10:59 | disposition home or self-care (01) ==
LOC: HO.HMCHD 10:08
PROVIDERS: PCP Physician Assistant; Visit Provider Physician Assistant
DX: E11.42 Type 2 diabetes mellitus with diabetic polyneuropathy (principal); E78.00 Pure hypercholesterolemia, unspecified; I73.9 Peripheral vascular disease, unspecified

== ENCOUNTER 2025-01-23 13:20 | Outpatient (AMB) | payer OTHER, SELFPAY ==
--- OUTSIDE RECORDS SUMMARY | 2023-08-16 09:15 | XMS_ITS ---
Author Organization [facility], [place] Address [address] [facility] 1 [place] [address] Care Team Providers Care Orthotic/Prosthetic Clinician Name Role Phone Migration, Provider Unavailable Unavailable REASON FOR VISIT Sick Visit Encounters Encounter Location Date Provider [place] [facility] [place] [facility] [place] [facility] [address] [address] 08/16/2023 Provider Migration Plan Of Treatment No Information Progress Notes * VOLODYMYR GATES MDOB:1965 (59 yo F)Acc No.[id number]:08/16/2023 Progress Notes Patient: Miladys VOLODYMYR GAYLE Provider: Loida Apodaca :1965 A ge:58 Y S ex:Female Date:08/16/2023 Address:[address] [place], [place] [phone] Subjective: * Chief Complaints: * S ick Visit * Ocular Surgical History: Objective: Vision Examination: * Electronic signature of Prov ider Migration on 01/24/2025 at 01:12 AM EST Sign off status: Pending * Provider: Loida Apodaca Date: 0 08/16/2023 Generated for Bonita beckford/Loli/eTmallikasmitting on: 03/26/2024 01:12 AM EST
--- OUTSIDE RECORDS SUMMARY | 2023-08-23 08:30 | XMS_ITS ---
Author Organization [facility], [place] Address [address] [facility] 1 [place] [address] Care Team Providers Care Dinkey Operator Slag Name Role Phone Migration, Provider Unavailable Unavailable REASON FOR VISIT Follow-up Appt Encounters Encounter Location Date Provider Diagnosis [facility] [place] [facility], [address] [address] 08/23/2023 Provider Migration Plan Of Treatment No Information Progress Notes * VOLODYMYR GATES MDOB:1965 (59 yo F)Acc No.[id number]:08/23/2023 Progress Notes Patient: Miladys VOLODYMYR GAYLE Provider: Loida Apodaca :1965 A ge:58 Y S ex:Female Date:08/23/2023 Address:[address] [place], [place] [phone] Subjective: * Chief Complaints: * F ollow-up Appt * Ocular Surgical History: Objective: Vision Examination: * Electronic signature of Prov ider Migration on 01/24/2025 at 01:14 AM EST Sign off status: Pending * Provider: Loida carpenter Migration Date: 08/23/2023 Generated for Bonita beckford/Loli/eTmallikasmitting on: 03/26/2024 01:14 AM EST
--- OUTSIDE RECORDS SUMMARY | 2023-09-12 09:30 | XMS_ITS ---
Author Organization [facility], [place] Address [address] [facility] 1 [place] [address] Care Team Providers Care Manager Games Name Role Phone Migration, Provider Unavailable Unavailable REASON FOR VISIT Follow-up Appt Encounters Encounter Location Date Provider Diagnosis [facility] [place] [facility], [address] [address] 09/12/2023 Provider Migration Plan Of Treatment No Information Progress Notes * VOLODYMYR GATES MDOB:1965 (59 yo F)Acc No.[id number]:09/12/2023 Progress Notes Patient: Miladys VOLODYMYR GAYLE Provider: Loida Apodaca :1965 A ge:58 Y S ex:Female Date:09/12/2023 Address:[address] [place], [place] [phone] Subjective: * Chief Complaints: * F ollow-up Appt * Ocular Surgical History: Objective: Vision Examination: * Electronic signature of Prov ider Migration on 01/24/2025 at 01:14 AM EST Sign off status: Pending * Provider: Loida carpenter Migration Date: 09/12/2023 Generated for Bonita beckford/Loli/eTmallikasmitting on: 03/26/2024 01:14 AM EST
--- OUTSIDE RECORDS SUMMARY | 2023-09-28 06:30 | XMS_ITS ---
Author Organization [facility], [place] Address [address] [facility] 1 [place] [address] Care Team Providers Care Cabin Cleaner Name Role Phone Migration, Provider Unavailable Unavailable REASON FOR VISIT Follow-up Appt Encounters Encounter Location Date Provider Diagnosis [facility] [place] [facility], [address] [address] 09/28/2023 Provider Migration Plan Of Treatment No Information Progress Notes * VOLODYMYR GATES MDOB:1965 (59 yo F)Acc No.[id number]:09/28/2023 Progress Notes Patient: Miladys VOLODYMYR GAYLE Provider: Loida Apodaca :1965 A ge:58 Y S ex:Female Date:09/28/2023 Address:[address] [place], [place] [phone] Subjective: * Chief Complaints: * F ollow-up Appt * Ocular Surgical History: Objective: Vision Examination: * Electronic signature of Prov ider Migration on 01/24/2025 at 01:13 AM EST Sign off status: Pending * Provider: Loida carpenter Migration Date: 09/28/2023 Generated for Bonita beckford/Loli/eTmallikasmitting on: 03/26/2024 01:13 AM EST
--- OUTSIDE RECORDS SUMMARY | 2023-10-04 08:30 | XMS_ITS ---
Author Organization [facility] [place] Address [address] [facility] 1 [place] [address] Care Team Providers Care Spinning Frame Fixer Name Role Phone Migration, Provider Unavailable Unavailable REASON FOR VISIT Follow-up Appt Encounters Encounter Location Date Provider [place] [facility] [place] [facility] [place] [facility] [address] [address] 10/04/2023 Provider Migration Plan Of Treatment No Information Progress Notes * VOLODYMYR GATES MDOB:1965 (59 yo F)Acc No.[id number]:10/04/2023 Progress Notes Patient: Miladys VOLODYMYR GAYLE Provider: Loida Apodaca :1965 A ge:58 Y S ex:Female Date:10/04/2023 Address:[address] [place], [place] [phone] Subjective: * Chief Complaints: * F ollow-up Appt * Ocular Surgical History: Objective: Vision Examination: * Electronic signature of Prov ider Migration on 01/24/2025 at 01:13 AM EST Sign off status: Pending * Provider: Loida carpenter Migration Date: 10/04/2023 Generated for Bonita beckford/Loli/eTmallikasmitting on: 03/26/2024 01:13 AM EST
--- OUTSIDE RECORDS SUMMARY | 2023-12-08 08:30 | XMS_ITS ---
Author Organization [facility], [place] Address [address] [facility] 1 [place] [address] Care Team Providers Care Creative Services Manager Name Role Phone Migration, Provider Unavailable Unavailable REASON FOR VISIT Follow-up Appt Encounters Encounter Location Date Provider Diagnosis [facility] [place] [place] [facility], [address] [address] 12/08/2023 Provider Migration Plan Of Treatment No Information Progress Notes * VOLODYMYR GATES MDOB:1965 (59 yo F)Acc No.[id number]:12/08/2023 Progress Notes Patient: Miladys VOLODYMYR GAYLE Provider: Loida Apodaca :1965 A ge:58 Y S ex:Female Date:12/08/2023 Address:[address] [place], [place] [phone] Subjective: * Chief Complaints: * F ollow-up Appt * Ocular Surgical History: Objective: Vision Examination: * Electronic signature of Prov ider Migration on 01/24/2025 at 01:13 AM EST Sign off status: Pending * Provider: Loida carpenter Migration Date: Generated for Bonita beckford/Loli/eTmallikasmitting on: 03/26/2024 01:13 AM EST
--- OUTSIDE RECORDS SUMMARY | 2024-01-19 05:15 | XMS_ITS ---
Author Organization [facility], [place] Address [address] [facility] 1 [place] [address] Care Team Providers Care Estimate Clerk Name Role Phone Migration, Provider Unavailable Unavailable REASON FOR VISIT Sick Visit Encounters Encounter Location Date Provider Diagnosis [facility], [address] [address] 01/19/2024 Provider Migration Plan Of Treatment No Information Progress Notes * VOLODYMYR GATES MDOB:1965 (59 yo F)Acc No.[id number]:01/19/2024 Progress Notes Patient: Miladys VOLODYMYR GAYLE Provider: Loida Apodaca :1965 A ge:58 Y S ex:Female Date:01/19/2024 Address:[address] [place], [place] [phone] Subjective: * Chief Complaints: * S ick Visit * Ocular Surgical History: Objective: Vision Examination: * Electronic signature of Prov ider Migration on 01/24/2025 at 01:14 AM EST Sign off status: Pending * Provider: Loida carpenter Migration Date: 03/20/2023 Generated for Bonita beckford/Loli/eTmallikasmitting on: 03/26/2024 01:14 AM EST
--- OUTSIDE RECORDS SUMMARY | 2024-03-13 08:30 | XMS_ITS ---
Author Organization [facility], [place] Address [address] [facility] 1 [place] [address] Care Team Providers Care Compugraph Operator Name Role Phone Migration, Provider Unavailable Unavailable REASON FOR VISIT CPX Encounters Encounter Location Date Provider Diagnosis [facility] [place] [facility], [address] [address] 03/13/2024 Provider Migration Plan Of Treatment No Information Progress Notes * VOLODYMYR GATES MDOB:1965 (59 yo F)Acc No.[id number]:03/13/2024 Progress Notes Patient: Miladys VOLODYMYR GAYLE Provider: Loida Apodaca :1965 A ge:58 Y S ex:Female Date:03/13/2024 Address:[address] [place], [place] [phone] Subjective: * Chief Complaints: * C PX * Ocular Surgical History: Objective: Vision Examination: * Electronic signature of Prov ider Migration on 01/24/2025 at 01:14 AM EST Sign off status: Pending * Provider: Loida Apodaca Date: 0 03/13/2024 Generated for Bonita beckford/Loli/eTransmitting on: 03/26/2024 01:14 AM EST
--- OUTSIDE RECORDS SUMMARY | 2024-04-03 08:30 | XMS_ITS ---
Author Organization [facility], [place] Address [address] [facility] 1 [place] [address] Care Team Providers Care Assembler Billiard Table Name Role Phone Migration, Provider Unavailable Unavailable REASON FOR VISIT CPX Encounters Encounter Location Date Provider Diagnosis [facility], [address] [address] 04/03/2024 Provider Migration Plan Of Treatment No Information Progress Notes * VOLODYMYR GATES MDOB:1965 (59 yo F)Acc No.[id number]:04/03/2024 Progress Notes Patient: Miladys VOLODYMYR GAYLE Provider: Loida Apodaca :1965 A ge:58 Y S ex:Female Date:04/03/2024 Address:[address] [place], [place] [phone] Subjective: * Chief Complaints: * C PX * Ocular Surgical History: Objective: Vision Examination: * Electronic signature of Prov ider Migration on 01/24/2025 at 01:13 AM EST Sign off status: Pending * Provider: Loida Apodaca Date: 04/03/2024 Generated for Bonita beckford/Loli/eTransmitting on: 03/26/2024 01:13 AM EST
--- OUTSIDE RECORDS SUMMARY | 2024-04-03 08:30 | XMS_ITS ---
Author Organization [facility], [place] Address [address] [facility] 1 [place] [address] Care Team Providers Care Pharmacy Resident Name Role Phone Senthil Cardoso Unavailable [phone] REASON FOR VISIT CPX Encounters Encounter Location Date Provider Diagnosis [facility], [address] [address] 04/03/2024 Senthil Cardoso Plan Of Treatment No Information Progress Notes * VOLODYMYR GATES MDOB:1965 (59 yo F)Acc No.[id number]:04/03/2024 Progress Notes Patient: Miladys GAYLE VOLODYMYR [place] Provider: Leeann TELLEZ :1965 A ge:58 Y S ex:Female Date:04/03/2024 Address:[address] [place], [place] [phone] Subjective: * Chief Complaints: * C PX * Ocular Surgical History: Objective: Vision Examination: * Electronic signature of Ishaan Cardoso PA-C on 01/24/2025 at 01:14 AM EST Sign off status: Pending * Provider: Leeann TELLEZ Date: 0 04/03/2024 Generated for Bonita beckford/Loli/eTransmitting on: 03/26/2024 01:14 AM EST
--- OUTSIDE RECORDS SUMMARY | 2024-07-10 08:00 | XMS_ITS ---
Author Organization [facility] [place] Address [address] [place] [address] Care Team Providers Care Computer Systems Integrator Name Role Phone Guille More MD Primary Care Provider Stefanie Sena Unavailable [phone] Allergies Allergen (clinical drug ingredient) Drug/Non Drug Allergy documented on EMR Reaction Allergy Type Onset Date Status ibuprofen Advil can't take- Barretts Drug Allergy Active Motrin can't take- Barretts Drug Allergy Active aspirin Aspirin can't take- Barretts Drug Allergy Active erythromycin Erythromycin dry heaving Drug Allergy Active Medications Medication SIG (Take, Route, Frequency, Duration) Notes Start Date End Date Status Atorvastatin Calcium 20 MG 1 tablet Oral ly Once a day Active Gabapentin 100 MG 1 capsule at bedtime Orally Once a day Active HumaLOG 6 units Active Pantoprazole Sodium 40 MG 1 tablet 1/2 t o 1 hour before morning meal Orally Once a day Active Lantus 42 units Active Vitamin B12 1000 MCG 1 tablet Orally Onc e a day Active Tylenol Active Vitamin D Active Melatonin 5 MG 1 tablet in the even ing Orally Once a day Active Social History Tobacco Use: Social History Observation Description Date Details (start date - stop date) Current Smoker NA - NA Tobacco use other than smoking: Question Answer Notes Are you an other tobacco user? No Tobacco Control (Standard) Question Answer Notes Tobacco use: Current smoker AUDIT-C (Standard) Question Answer Notes Did you have a drink contain ing alcohol in the past year? Yes How often did you have a dri nk containing alcohol in the past year? 2 to 4 times a month (2 points) How many drinks did you have on a typical day when you were drinking in the past year? Declined to specify (0 point) How often did you have six o r more drinks on one occasion in the past year? Declined to specify (0 point) Points 2 Interpretation Negative Encounters Encounter Location Date Provider Diagnosis [facility] [address] [place] [phone] 07/10/2024 Stefanie Darvin Plan Of Treatment No Information Progress Notes * Sunil KAMARAOB:1965 ( 59 yo F)Acc No.[id number]:07/10/2024 Progress Notes Patient: Karen CHAPMAN Provider: Bernabe Boston DPM :1965 A ge:59 Y S ex:Female Date:07/10/2024 Address: [address] [place], [place] Pcp:Guille More MD Subjective: * Chief Complaints: * * ROS: G eneral/Constitutional: Nausea d enies. V omiting d enies. H rio Thirst d enies. L oss appetite d enies. C hills d enies. F atigue d enies.?Fever d enies. N ight Sweats a dmits. U nexplained weight loss d enies. U nexplained weight gain d enies. H EENTM: Dentures d enies. D izziness d enies. G lasses/contacts d enies. R etinopathy d enies. B lurred/double vision d enies. T MJ?denies. D ischarge/drainage d enies. I mplants d enies. S ore throat d enies. D ental implants d enies. H morgan of hearing d enies. D ifficulty chewing/swallowing/speaking d enies. N ose bleeds d enies. S ore mouth d enies. ? R espiratory: On Oxygen d enies. P neumonia/pleurisy d enies.?Bronchitis d enies. E mphysema d enies. C oughing a dmits. C ough blood?denies. S hortness of breath d enies. W heezing d enies. C ardiovascular: Pacemaker d enies. M BOARD MEMBER d enies. W PW d enies. C HF d enies. H eart attack d enies. S eptal defect d enies. R apid beat d enies. C hest pain d enies. A trial Fib. d enies. M urmur/Palpitations d enies. G astrointestinal: Hemorrhoids d enies. S tomach/Abdominal pain a dmits. D ark blood stool d enies. I rritable bowel d enies. C onstipation d enies. D iarrhea d enies. H ematology: Swelling d enies. C lots d enies. V aricose Veins d enies. B ruising d enies. B leeding problem d enies. G enitourinary: Blood urine d enies. F requent/Painfu/urination/bladder control d enies. K idney stones d enies. I nfection (UTI) d enies. N ephropathy d enies. s ex trans dis (STD) d enies. P rostate d enies. M usculoskeletal: Hammertoes d enies. B unions d enies. B ack Pain d enies. M uscle Cramps/ Resting a dmits. M uscle cramps / walking d enies.?Generalized aches and pains d enies. W eakness d enies. I nteg.: Walker d enies. S cars d enies. C orns/calluses?denies. I ngrown nails d enies. P ainful nails d enies. O pen Sores d enies. R ashes a dmits. N eurologic: Difficulty sleeping d enies. B rain disorder d enies. N umbness d enies. B alance trouble a dmits. C onfusion d enies. F ainting/blackouts d enies. T ingling a dmits. T remors d enies. * Medical History: A sthma, Back,Hip,and Knee pain, type II diabetes, Barretts, Neuropathy. * Family History: M other: alive. F ather: . * Social History: T obacco Use: T obacco use other than smoking A re you an other tobacco user? N o Tobacco Control (Standard) T obacco use: C urrent smoker D rugs/Alcohol: D rugs H ave you used drugs other than those for medical reasons in the past 12 months? N o M iscellaneous: C affeine: yes. Children: no. Marital status: . D rug/Alcohol: A CHRISTINA-C (Standard) D id you have a drink containing alcohol in the past year? Y es H ow often did you have a drink containing alcohol in the past year? 2 to 4 times a month (2 points) H ow many drinks did you have on a typical day when you were drinking in the past year? D eclined to specify (0 point) H ow often did you have six or more drinks on one occasion in the past year? D eclined to specify (0 point) P oints 2 I nterpretation N egative * Medications: T aking Tylenol , Taking Melatonin 5 MG Tablet 1 tablet in the evening Orally Once a day , Taking Vitamin D , Taking Vitamin B12 1000 MCG Tablet Extended Release 1 tablet Orally Once a day , Taking Gabapentin 100 MG Capsule 1 capsule at bedtime Orally Once a day , Taking Atorvastatin Calcium 20 MG Tablet 1 tablet Orally Once a day , Taking Pantoprazole Sodium 40 MG Tablet Delayed Release 1 tablet 1/2 to 1 hour before morning meal Orally Once a day , Taking HumaLOG , Notes to Pharmacist: 6 units, Taking Lantus , Notes to Pharmacist: 42 units * Allergies: E rythromycin: dry heaving, Aspirin: can't take- Barretts, Advil: can't take- Barretts, Motrin: can't take- Barretts. Objective: * Vitals: Assessment: Plan: * Treatment: * Images: * The named appointment provid er may or may not be the originator of this progress note, and it is not deemed complete until electronically signed by the appointment provider. Sign off status: Pending * Provider: Bernabe Boston DPM Date: 0 07/10/2024 Generated for Bonita Palafox/Colten on: 03/26/2024 01:14 AM EST
[2025-01-23 13:50] VITALS: BP 118/58; BMI 23.1
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
--- OUTSIDE RECORDS SUMMARY | 2025-01-24 01:13 | XMS_ITS | Patient Health Record ---
Author Organization [facility] [place] Address [address] [facility] [address] [place] [address] Care Team Providers Care Real Estate Executive Assistant Name Role Phone Senthil Cardoso Unavailable [phone] Migration, Provider Unavailable Unavailable Reason For Referral No Information Encounters Encounter Location Date Provider Diagnosis [address] [address] 03/13/2024 Provider Migration [facility], [address] [address] 04/03/2024 Senthil Cardoso [facility], [address] [address] 04/03/2024 Provider Migration Plan Of Treatment No Information Insurance Providers Payer Name Payer Address Payer Phone Subscriber Number Group Number Insured Name Patient Relationship to Insured Coverage Start Date Coverage End Date [facility] [address] [place] [address] [id number] VOLODYMYR GATES Self - patient is the insured
--- OUTSIDE RECORDS SUMMARY | 2025-01-24 01:14 | XMS_ITS | Patient Health Record ---
[facility] Address [address] [facility] [place] [address] Care Team Providers Care Sponge Maker Name Role Phone Guille More MD Primary Care Provider Stefanie Sena Unavailable [phone] Allergies Allergen (clinical drug ingredient) Drug/Non Drug [...] Negative Encounters Encounter Location Date Provider Diagnosis [facility] [place] [address] [place] [address] 07/06/2024 Stefanie Boston Plan Of Treatment No Information Insurance Providers Payer Name Payer Address Payer Phone Subscriber Number Group Number Insured Name Patient Relationship to Insured Coverage Start Date Coverage End Date [facility] [address] [address] [place] [phone] [id number] Karen Kamara Self - patient is the insured Medical (General) History Medical History History ICD Code asthma Back,Hip,and Knee pain type II diabetes Barretts Neuropathy
== END 2025-01-23 14:57 | disposition home or self-care (01) ==
LOC: HO.HWSM 13:20
PROVIDERS: PCP Physician Assistant; Visit Provider Advanced Practice Midwife
DX: Z01.419 Encounter for gynecological examination (general) (routine) without abnormal findings (principal); D22.9 Melanocytic nevi, unspecified; Z12.39 Encounter for other screening for malignant neoplasm of breast; F17.200 Nicotine dependence, unspecified, uncomplicated; Z80.3 Family history of malignant neoplasm of breast
CPT/HCPCS: 99386

== ENCOUNTER 2025-01-23 13:20 | Outpatient (REF) | payer OTHER, SELFPAY | END 2025-01-23 13:21 | disposition home or self-care (01) | LOC: HO.LNP 13:20 | PROVIDERS: PCP Physician Assistant; Visit Provider Advanced Practice Midwife | DX: Z01.419 Encounter for gynecological examination (general) (routine) without abnormal findings (principal); Z12.39 Encounter for other screening for malignant neoplasm of breast; Z80.3 Family history of malignant neoplasm of breast; D22.9 Melanocytic nevi, unspecified; F17.210 Nicotine dependence, cigarettes, uncomplicated | CPT/HCPCS: 87626; 88175 ==

== ENCOUNTER 2025-02-08 15:20 | Outpatient (REF) | payer OTHER, SELFPAY ==
[2025-02-08 17:30] LABS: Blood Urea Nitrogen 20 mg/dL (9-16); Estimated Glomerular Filt Rate > 60
== END 2025-02-08 15:21 | disposition home or self-care (01) ==
LOC: HO.LAB 15:20
PROVIDERS: PCP Physician Assistant; Visit Provider Radiology Vascular & Interventional Radiology
DX: R79.89 Other specified abnormal findings of blood chemistry (principal); R94.4 Abnormal results of kidney function studies
CPT/HCPCS: 36415; 82565; 84520

== ENCOUNTER 2025-02-13 02:36 | Emergency (ER) | payer OTHER, SELFPAY ==
--- OUTSIDE RECORDS SUMMARY | 2023-08-16 09:15 | XMS_ITS ---
Author Organization [facility] [place] Address [address] [facility] 1 [place] [address] Care Team Providers Care Hvac Engineering Technician Name Role Phone Migration, Provider Unavailable Unavailable REASON FOR VISIT Sick Visit Encounters Encounter Location Date Provider Diagnosis [facility] [place] [facility], [address] [address] 08/16/2023 Provider Migration Plan Of Treatment No Information Progress Notes * VOLODYMYR GATES MDOB:1965 (59 yo F)Acc No.[id number]:08/16/2023 Progress Notes Patient: Miladys VOLODYMYR GAYLE Provider: Loida Apodaca :1965 A ge:58 Y S ex:Female Date:08/16/2023 Address:[address] [place], [place] [phone] Subjective: * Chief Complaints: * S ick Visit * Ocular Surgical History: Objective: Vision Examination: * Electronic signature of Prov ider Migration on 02/13/2025 at 05:21 AM EST Sign off status: Pending * Provider: Loida carpenter Migration Date: 0 08/16/2023 Generated for Bonita beckford/Loli/eTmallikasmitting on: 1 04/16/2024 05:21 AM EST
--- OUTSIDE RECORDS SUMMARY | 2023-08-23 08:30 | XMS_ITS ---
Author Organization [facility] [place] Address [address] [facility] 1 [place] [address] Care Team Providers Care Md Urologist Name Role Phone Migration, Provider Unavailable Unavailable REASON FOR VISIT Follow-up Appt Encounters Encounter Location Date Provider Diagnosis [facility] [place] [facility], [address] [address] 08/23/2023 Provider Migration Plan Of Treatment No Information Progress Notes * VOLODYMYR GATES MDOB:1965 (59 yo F)Acc No.[id number]:08/23/2023 Progress Notes Patient: Miladys VOLODYMYR GAYLE Provider: Loida Apodaca :1965 A ge:58 Y S ex:Female Date:08/23/2023 Address:[address] [place], [place] [phone] Subjective: * Chief Complaints: * F ollow-up Appt * Ocular Surgical History: Objective: Vision Examination: * Electronic signature of Prov ider Migration on 02/13/2025 at 05:22 AM EST Sign off status: Pending * Provider: Loida carpenter Migration Date: 0 08/23/2023 Generated for Bonita beckford/Loli/Lamsmitting on: 1 04/16/2024 05:22 AM EST
--- OUTSIDE RECORDS SUMMARY | 2023-09-12 09:30 | XMS_ITS ---
Author Organization [facility], [place] Address [address] [facility] 1 [place] [address] Care Team Providers Care Heel Caser Name Role Phone Migration, Provider Unavailable Unavailable REASON FOR VISIT Follow-up Appt Encounters Encounter Location Date Provider Diagnosis [facility] [place] [facility], [address] [address] 09/12/2023 Provider Migration Plan Of Treatment No Information Progress Notes * VOLODYMYR GATES MDOB:1965 (59 yo F)Acc No.[id number]:09/12/2023 Progress Notes Patient: Miladys VOLODYMYR GAYLE Provider: Loida Apodaca :1965 A ge:58 Y S ex:Female Date:09/12/2023 Address:[address] [place], [place] [phone] Subjective: * Chief Complaints: * F ollow-up Appt * Ocular Surgical History: Objective: Vision Examination: * Electronic signature of Prov ider Migration on 02/13/2025 at 05:23 AM EST Sign off status: Pending * Provider: Loida carpenter Migration Date: 0 09/12/2023 Generated for Bonita beckford/Loli/Lamsmitting on: 1 04/16/2024 05:23 AM EST
--- OUTSIDE RECORDS SUMMARY | 2023-09-28 06:30 | XMS_ITS ---
Author Organization [facility], [place] Address [address] [facility] 1 [place] [address] Care Team Providers Care Surface Lay Out Technician Name Role Phone Migration, Provider Unavailable Unavailable REASON FOR VISIT Follow-up Appt Encounters Encounter Location Date Provider Diagnosis [facility] [place] [facility], [address] [address] 09/28/2023 Provider Migration Plan Of Treatment No Information Progress Notes * VOLODYMYR GATES MDOB:1965 (59 yo F)Acc No.[id number]:09/28/2023 Progress Notes Patient: Miladys VOLODYMYR GAYLE Provider: Loida Apodaca :1965 A ge:58 Y S ex:Female Date:09/28/2023 Address:[address] [place], [place] [phone] Subjective: * Chief Complaints: * F ollow-up Appt * Ocular Surgical History: Objective: Vision Examination: * Electronic signature of Prov ider Migration on 02/13/2025 at 05:21 AM EST Sign off status: Pending * Provider: Loida carpenter Migration Date: 09/28/2023 Generated for Bonita beckford/Loli/Lamsmitting on: 04/16/2024 05:21 AM EST
--- OUTSIDE RECORDS SUMMARY | 2023-10-04 08:30 | XMS_ITS ---
Author Organization [facility] [place] Address [address] [facility] 1 [place] [address] Care Team Providers Care Business Development Intern Name Role Phone Migration, Provider Unavailable Unavailable REASON FOR VISIT Follow-up Appt Encounters Encounter Location Date Provider [place] [facility] [place] [facility] [address] [address] 10/04/2023 Provider Migration Plan Of Treatment No Information Progress Notes * VOLODYMYR GATES MDOB:1965 (59 yo F)Acc No.[id number]:10/04/2023 Progress Notes Patient: Miladys VOLODYMYR GAYLE Provider: Loida Apodaca :1965 A ge:58 Y S ex:Female Date:10/04/2023 Address:[address] [place], [place] [phone] Subjective: * Chief Complaints: * F ollow-up Appt * Ocular Surgical History: Objective: Vision Examination: * Electronic signature of Prov ider Migration on 02/13/2025 at 05:22 AM EST Sign off status: Pending * Provider: Loida carpenter Migration Date: 0 10/04/2023 Generated for Bonita beckford/Loli/Lamsmitting on: 1 04/16/2024 05:22 AM EST
--- OUTSIDE RECORDS SUMMARY | 2023-12-08 08:30 | XMS_ITS ---
Author Organization [facility] [place] Address [address] [facility] 1 [place] [address] Care Team Providers Care Layer Out Name Role Phone Migration, Provider Unavailable Unavailable REASON FOR VISIT Follow-up Appt Encounters Encounter Location Date Provider Diagnosis [facility] [place] [facility], [address] [address] 12/08/2023 Provider Migration Plan Of Treatment No Information Progress Notes * VOLODYMYR GATES MDOB:1965 (59 yo F)Acc No.[id number]:12/08/2023 Progress Notes Patient: Miladys VOLODYMYR GAYLE Provider: Loida Apodaca :1965 A ge:58 Y S ex:Female Date:12/08/2023 Address:[address] [place], [place] [phone] Subjective: * Chief Complaints: * F ollow-up Appt * Ocular Surgical History: Objective: Vision Examination: * Electronic signature of Prov ider Migration on 02/13/2025 at 05:22 AM EST Sign off status: Pending * Provider: Loida carpenter Migration Date: 1 Generated for Bonita beckford/Loli/eTmallikasmitting on: 1 04/16/2024 05:22 AM EST
--- OUTSIDE RECORDS SUMMARY | 2024-01-19 05:15 | XMS_ITS ---
Author Organization [facility], [place] Address [address] [facility] 1 [place] [address] Care Team Providers Care Hand Bunch Maker Name Role Phone Migration, Provider Unavailable Unavailable REASON FOR VISIT Sick Visit Encounters Encounter Location Date Provider Diagnosis [facility] [address] [address] 01/19/2024 Provider Migration Plan Of Treatment No Information Progress Notes * VOLODYMYR GATES MDOB:1965 (59 yo F)Acc No.[id number]:01/19/2024 Progress Notes Patient: Miladys VOLODYMYR GAYLE Provider: Loida Apodaca :1965 A ge:58 Y S ex:Female Date:01/19/2024 Address:[address] [place], [place] [phone] Subjective: * Chief Complaints: * S ick Visit * Ocular Surgical History: Objective: Vision Examination: * Electronic signature of Prov ider Migration on 02/13/2025 at 05:22 AM EST Sign off status: Pending * Provider: Loida carpenter Migration Date: 03/20/2023 Generated for Bonita beckford/Loli/eTmallikasmitting on: 04/16/2024 05:22 AM EST
--- OUTSIDE RECORDS SUMMARY | 2024-03-13 08:30 | XMS_ITS ---
Author Organization [facility], [place] Address [address] [facility] 1 [place] [address] Care Team Providers Care Snow Removal/Plowing Name Role Phone Migration, Provider Unavailable Unavailable REASON FOR VISIT CPX Encounters Encounter Location Date Provider Diagnosis [facility] [place] [facility], [address] [address] 03/13/2024 Provider Migration Plan Of Treatment No Information Progress Notes * VOLODYMYR GATES MDOB:1965 (59 yo F)Acc No.[id number]:03/13/2024 Progress Notes Patient: Miladys VOLODYMYR GAYLE Provider: Loida Apodaca :1965 A ge:58 Y S ex:Female Date:03/13/2024 Address:[address] [place], [place] [phone] Subjective: * Chief Complaints: * C PX * Ocular Surgical History: Objective: Vision Examination: * Electronic signature of Prov ider Migration on 02/13/2025 at 05:23 AM EST Sign off status: Pending * Provider: Loida Apodaca Date: 0 03/13/2024 Generated for Bonita beckford/Loli/eTransmitting on: 1 04/16/2024 05:23 AM EST
--- OUTSIDE RECORDS SUMMARY | 2024-04-03 08:30 | XMS_ITS ---
Author Organization [facility], [place] Address [address] [facility] 1 [place] [address] Care Team Providers Care Oral Surgery Physician Name Role Phone Senthil Cardoso Unavailable [phone] REASON FOR VISIT CPX Encounters Encounter Location Date Provider Diagnosis [facility] [place] [facility], [address] [address] 04/03/2024 Senthil Cardoso Plan Of Treatment No Information Progress Notes * VOLODYMYR GATES MDOB:1965 (59 yo F)Acc No.[id number]:04/03/2024 Progress Notes Patient: Miladys GAYLE VOLODYMYR [place] Provider: Leeann TELLEZ :1965 A ge:58 Y S ex:Female Date:04/03/2024 Address:[address] [place], [place] [phone] Subjective: * Chief Complaints: * C PX * Ocular Surgical History: Objective: Vision Examination: * Electronic signature of Ishaan Cardoso PA-C on 02/13/2025 at 05:23 AM EST Sign off status: Pending * Provider: Leeann TELLEZ Date: 0 04/03/2024 Generated for Bonita beckford/Loli/eTransmitting on: 04/16/2024 05:23 AM EST
--- OUTSIDE RECORDS SUMMARY | 2024-04-03 08:30 | XMS_ITS ---
Author Organization [facility], [place] Address [address] [facility] 1 [place] [address] Care Team Providers Care Blood Bank Worker Name Role Phone Migration, Provider Unavailable Unavailable REASON FOR VISIT CPX Encounters Encounter Location Date Provider Diagnosis [facility] [place] [facility], [address] [address] 04/03/2024 Provider Migration Plan Of Treatment No Information Progress Notes * VOLODYMYR GATES MDOB:1965 (59 yo F)Acc No.[id number]:04/03/2024 Progress Notes Patient: Miladys VOLODYMYR GAYLE Provider: Loida Apodaca :1965 A ge:58 Y S ex:Female Date:04/03/2024 Address:[address] [place], [place] [phone] Subjective: * Chief Complaints: * C PX * Ocular Surgical History: Objective: Vision Examination: * Electronic signature of Prov ider Migration on 02/13/2025 at 05:21 AM EST Sign off status: Pending * Provider: Loida Apodaca Date: 0 04/03/2024 Generated for Bonita beckford/Loli/eTmallikasmitting on: 04/16/2024 05:21 AM EST
--- OUTSIDE RECORDS SUMMARY | 2024-07-10 08:00 | XMS_ITS ---
Author Organization [facility] [place] Address [address] [place] [address] Care Team Providers Care Accounts Payable Technician Name Role Phone Guille More MD Primary Care Provider Stefanie Sena Unavailable [phone] Allergies Allergen (clinical drug ingredient) Drug/Non Drug [...] Negative Encounters Encounter Location Date Provider Diagnosis [facility] [place] [address] [place] [phone] 07/10/2024 Stefanie Darvin Plan Of Treatment No Information Progress Notes * Sunil KAMARAOB:1965 ( 59 yo F)Acc No.[id number]:07/10/2024 Progress Notes Patient: Karen CHAPMAN Provider: Bernabe Boston DPM :1965 A ge:59 Y S ex:Female Date:07/10/2024 Address: [address] [place], [place] Pcp:Guille More MD Subjective: * Chief Complaints: [...] enies. C ardiovascular: Pacemaker d enies. M MECHANISM INSPECTOR d enies. W PW d enies. C [...] 0 07/10/2024 Generated for Bonita Palafox/Colten on: 04/16/2024 05:23 AM EST
[2025-02-13 02:42] VITALS: BP 127/69; PULSE 79; RESP 16; TEMP 36.5; O2SAT 97; BMI 23.5
[2025-02-13 03:59] LABS: MANUAL DIFF FLAG NO
[2025-02-13 04:00] LABS: Hematocrit 38.4 % (37.0-47.0); Hemoglobin 13.3 g/dl (12.0-16.0); Imm Gran Abs Auto 0.09 X10*3/uL (0.00-0.03); Imm Gran Pct Auto 0.5 % (0.0-0.4); Lymphocytes Absolute Auto 4.1 X10*3/uL (1.2-4.9); Mean Corpuscular HGB Conc 34.6 g/dl (31.0-35.0); Mean Corpuscular Hemoglobin 31.7 pg (27.0-33.0); Mean Corpuscular Volume 91.4 fL (80.0-98.0); NRBC Abs Auto 0.000 X10*3/uL (0.0-0.012); NRBC Pct Auto 0.0 /100WBC (0.0-0.2); Platelet Count 296 X10*3/uL (160-400); Red Blood Count 4.20 X10*6/uL (4.20-5.50); White Blood Count 16.5 X10*3/uL (4.8-10.8)
[2025-02-13 04:21] LABS: Anion Gap 12 (12-20); Blood Urea Nitrogen 12 mg/dL (9-16); Calcium 9.1 mg/dL (8.4-10.2); Carbon Dioxide 24 mmol/L (22-29); Chloride 109 mmol/L (96-108); Creatinine Clr Calc Pharmacy 74.8; Estimated Glomerular Filt Rate > 60; Potassium 3.7 mmol/L (3.3-5.1); Sodium 141 mmol/L (135-145)
[2025-02-13 05:13] VITALS: BP 105/54; PULSE 68; RESP 16; TEMP 36.4; O2SAT 97
--- OUTSIDE RECORDS SUMMARY | 2025-02-13 05:22 | XMS_ITS | Patient Health Record ---
Author Organization [facility] [place] Address [address] [facility] [address] [place] [address] Care Team Providers Care Repeat Photocomposing Machine Operator Name Role Phone Senthil Cardoso Unavailable [phone] Migration, Provider Unavailable Unavailable Reason For Referral No Information Encounters Encounter Location Date Provider Diagnosis [address] [address] 03/13/2024 Provider Migration [facility], [address] [address] 04/03/2024 Senthil Cardoso [facility], [address] [address] 04/03/2024 Provider Migration Plan Of Treatment No Information Insurance Providers Payer Name Payer Address Payer Phone Subscriber Number Group Number Insured Name Patient Relationship to Insured Coverage Start Date Coverage End Date [facility] [address] [facility] [place] [address] [id number] VOLODYMYR GATES Self - patient is the insured
--- OUTSIDE RECORDS SUMMARY | 2025-02-13 05:22 | XMS_ITS | Clinical Summary ---
Author Organization [facility] Address [address] [place] [phone] Phone Care Team Providers Care Student Outreach Coordinator Name Role Phone Guille Walker MD Primary Care Provider [phone] Social History Tobacco Use Types Packs/Day Years Used Date Smoking Tobacco: Every Day Smokeless Tobacco: Never Alcohol Use Standard Drinks/Week Comments Yes 0 (1 standard drink = 0.6 oz pur e alcohol) Comments Unknown Sex and Gender Information Value Date Recorded Sex Assigned at Not on file Legal Sex Female 6:32 AM EST Gender Identity Not on file Sexual Orientation Not on file Plan of Treatment Health Maintenance Due Date [...] LAB CHEMISTRY METHOD 04/03/2024 7:19 PM EST [facility] Triglycerides 88 0 - 150 mg/dL LAB CHEMISTRY METHOD 04/03/2024 7:19 PM [facility] HDL 66 >=40 mg/dL LAB [...] TELLEZ LAB BLOOD ORDERABLES Final Res ult [facility] [address] [place] [address], * Comprehensive metabolic panel (04/03/2024 12:00 AM [...] LAB CHEMISTRY METHOD 04/03/2024 7:24 PM EST [facility] Blood Venous blood specimen / Unknown 04/03/2024 04/03/2024 6:01 PM EST Senthil TELLEZ LAB BLOOD ORDERABLES Final Res ult Performing Organization Address City/[facility]/ZIP Co de Phone Number [facility] [address] [place] [address], [place] [phone] * (ABNORMAL) Hemoglobin A1c (01/19/2024 12:00 AM EST) Hemoglobin A1C 8.7(H) <6.5 % LAB CHEMISTRY METHOD 01/19/2024 10:25 PM EST [facility] Mean Bld Glu Estim. 203 mg/dL LAB CHEMISTRY METHOD 01/19/2024 10:25 PM EST [facility] Blood Venous blood specimen / Unknown 01/19/2024 01/19/2024 5:35 PM EST Guille Walker MD LAB BLOOD ORDERABLES Final Result Performing Organization Address [facility]/ZIP Co de Phone Number [facility] [address] [place] [address], * GHAZALA SCREENING DIGITAL (12/23/2020 5:13 PM EDT) Anatomical Region Laterality Modality Mammography 12/23/2020 12:5 7 PM EDT Narrative 12/23/2020 5:13 PM EDT [facility] Diagnostic Imaging Department [address] [place] [address] Patient: VOLODYMYR KAMARA /Age/Sex: 1965 - 55 - F Unit#: [id number] [facility] Mnemonic/Ordering Site: [facility] Ordering Physician: GUILLE WALKER MD Ghazala Screening Digital - 12/23/20 - 1630 History: Bilateral breast cancer screening. Family history of breast cancer affecting sister at age 53. Previous benign breast biopsies. Technique: Bilateral digital mammography. Conventional CC and MLO projections with tomosynthesis MLO views and computer aided detection. Comparison: [facility] 10/17/2018, dating back to 09/03/2010. Breast density: Breast density: Heterogeneous, potentially obscuring small lesions, category c density (as calculated by [employer] Volpara software). Findings: Benign calcifications and tissue asymmetries are without concerning interval change. There is no suspicious group of microcalcification, suspicious asymmetry, suspicious mass, architectural distortion or concerning change in breast tissue density. Impression: No mammographic evidence of malignancy. BIRADS Category 2: Benign Findings, 3342F 42333, 6[address]98 A negative mammogram in the face of a suspicious abnormality does not exclude the possibility of malignancy nor alter the indications for biopsy. Note: Patient information entered into a reminder system with a target due date for the next mammogram; RI II [id number] Dictating Physician: RASHAD REAVES MD Electronically Signed by: RASHAD REAVES MD Dic Date/Time: 12/23/201709 Sign date/Time: 12/23/201712 Procedure Note Rashad Reaves MD - 02/24/2022 [facility] Diagnostic Imaging Department [address] [place], [place] [id number] Patient: VOLODYMYR KAMARA /Age/Sex: 1965 - 55 - F Unit#: [id number] Location/Status: SPDIMAM/REG CLI Mnemonic/Ordering Site: [facility] Ordering Physician: GUILLE WALKER MD Ghazala Screening Digital - 12/23/20 - 1631 History: Bilateral breast cancer screening. Family history of breastcancer affecting sister at age 53. Previous benign breast biopsies. Technique: Bilateral digital mammography. Conventional CC and MLOprojections with tomosynthesis MLO views and computer aided detection. Comparison: [facility] 10/17/2018, dating back to 09/03/2010. Breast density: Breast density: Heterogeneous, potentially obscuringsmall lesions, category c density (as calculated by [employer] software). Findings: Benign calcifications and tissue asymmetries are without concerninginterval change. There is no suspicious group of microcalcification, suspicious asymmetry, suspicious mass, architectural distortion or concerning changein breast tissue density. Impression: No mammographic evidence of malignancy. BIRADS Category 2: Benign Findings, 3342F 64231, 22725 A negative mammogram in the face of a suspicious abnormality does notexclude the possibility of malignancy nor alter the indications for biopsy. Note: Patient information entered into a reminder system with a targetdue date for the next mammogram; PQRI II [id number] Dictating Physician: RASHAD REAVES MD Electronically Signed by: RASHAD REAVES MD Dic Date/Time: 12/23/201709 Sign date/Time: 12/23/201712 Guille Walker MD IMG BI PROCEDURES Final Res ult from Last 3 Months or Most Recently Relevant to Health Maintenance Insurance [facility] [place] [id number] Care Teams Student Outreach Coordinator Relationship Specialty Start Date End Date Guille Walker MD [address] [place] [id number] PCP - General Internal Medicine 01/19/24
--- OUTSIDE RECORDS SUMMARY | 2025-02-13 05:22 | XMS_ITS | Encounter Summary ---
Author Organization [facility] Address [address] [place] [address] Care Team Providers Care Bag Bleacher Name Role Phone Guille More MD Primary Care Provider [phone]- [phone] Encounter Details Date Type Department Care Team (Latest Contact Info) Description 01/19/2024 Lab Requisition [facility] - Main Lab [address] [facility] [email or web address] [phone] Guille More MD [address] [facility] [address] [place], [place] [id number] Type 2 diabetes mellitus without complications (CMS/HCC [...] EST Type 2 diabetes mellitus without complications (CMS/[facility]) documented in this encounter Results * (ABNORMAL) Fructosamine (01/19/2024 12:00 AM EST) Fructosamine 487(H) 151 - 300 umol /L 01/23/2024 1:06 PM EST [facility] Comment: Test performed at [facility], [address], [place] [address] Viri Tompkins MD, PhD - Remote Sensing Specialist Blood Venous blood specimen / Unknown 01/19/2024 01/19/2024 5:35 PM EST Guille More MD LAB BLOOD ORDERABLES Final Result Performing Organization Address City/[facility]/ZIP Co de Phone Number [facility] [address] [place] [address] * (ABNORMAL) Hemoglobin A1c (01/19/2024 12:00 AM EST) Hemoglobin A1C 8.7(H) <6.5 % LAB CHEMISTRY METHOD 01/19/2024 10:25 PM EST [facility] Mean Bld Glu Estim. 203 mg/dL LAB CHEMISTRY METHOD 01/19/2024 10:25 PM EST [facility] Blood Venous blood specimen / Unknown 01/19/2024 01/19/2024 5:35 PM EST Guille More MD LAB BLOOD ORDERABLES Final Result Performing Organization Address [facility] Co de Phone Number [facility] [address] [place] [address], documented in this encounter Visit Diagnoses Diagnosis Type 2 diabetes mellitus without complications (CMS/HCC V24, CMS/HCC V28) documented in this encounter Care Teams Bag Bleacher Relationship Specialty Start Date End Date Guille More MD [address] [address] PCP - General Internal Medicine 01/19/24 documented as of this encounter
--- OUTSIDE RECORDS SUMMARY | 2025-02-13 05:22 | XMS_ITS | Encounter Summary ---
Author Organization [facility] Address [address] [place] [address] Care Team Providers Care Quarter Seamer Name Role Phone Guille More MD Primary Care Provider [phone] Encounter Details Date Type Department Care Team (Latest Contact Info) Description 04/03/2024 Lab Requisition [facility] - Main Lab [address] [facility] [place] [address] Senthil Cardoso PA [address] [facility] [address] [place], [place] [id number] Chronic fatigue, unspecified; Mixed hyperlipidemia; Encounter for [...] TELLEZ LAB BLOOD ORDERABLES Final Res ult [facility]) [facility] [address] [place] [address], * (ABNORMAL) CBC auto differential (04/03/2024 12:00 AM EST) WBC 12.2(H) 4.8 - 10.8 K/[facility] LAB HEMETOLOGY METHOD 04/03/2024 7:20 PM [facility] RBC 4.30 3.80 - 4.80 M/mcL LAB HEMETOLOGY METHOD 04/03/2024 7:20 PM [facility] Hemoglobin 13.6 11.5 - 16.0 g/dL LAB HEMETOLOGY METHOD 04/03/2024 7:20 PM [facility] Hematocrit 39.9 35.0 - 47.0 % LAB HEMETOLOGY METHOD 04/03/2024 7:20 PM [facility] MCV 93.4 79.0 - 98.0 FL LAB HEMETOLOGY METHOD 04/03/2024 7:20 PM [facility] MCH 31.9 27.0 - 32.0 pcg LAB HEMETOLOGY METHOD 04/03/2024 7:20 PM [facility] MCHC 34.1 32.0 - 37.0 g/dL LAB HEMETOLOGY METHOD 04/03/2024 7:20 PM [facility] RDW 12.6 11.0 - 15.0 % LAB HEMETOLOGY METHOD 04/03/2024 7:20 PM [facility] Platelets 294 130 - 400 K/mcL LAB HEMETOLOGY METHOD 04/03/2024 7:20 PM [facility] MPV 10.8 7.0 - 11.0 FL LAB HEMETOLOGY METHOD 04/03/2024 7:20 PM [facility] NRBC 0.0 <1.0 % LAB HEMETOLOGY METHOD 04/03/2024 7:20 PM [facility] NRBC Absolute 0.00 <0.10 K/mcL LAB HEMETOLOGY METHOD 04/03/2024 7:20 PM [facility] Neutrophils Relative 54.0 % LAB HEMETOLOGY METHOD 04/03/2024 7:20 PM [facility] Lymphocytes Relative 33.9 % LAB HEMETOLOGY METHOD 04/03/2024 7:20 PM [facility] Monocytes Relative 8.0 % LAB HEMETOLOGY METHOD 04/03/2024 7:20 PM [facility] Eosinophils Relative 2.7 % LAB HEMETOLOGY METHOD 04/03/2024 7:20 PM [facility] Basophils Relative 1.1 % LAB HEMETOLOGY METHOD 04/03/2024 7:20 PM [facility] Immature Granulocytes Relative 0.3 % LAB HEMETOLOGY METHOD 04/03/2024 7:20 PM [facility] Neutrophils Absolute 6.58 1.50 - 7.00 K/mcL LAB HEMETOLOGY METHOD 04/03/2024 7:20 PM [facility] Lymphocytes Absolute 4.13 1.00 - 5.00 K/mcL LAB HEMETOLOGY METHOD 04/03/2024 7:20 PM [facility] Monocytes Absolute 0.98 0.20 - 1.00 K/mcL LAB HEMETOLOGY METHOD 04/03/2024 7:20 PM [facility] Eosinophils Absolute 0.33 0.00 - 0.50 K/mcL LAB HEMETOLOGY METHOD 04/03/2024 7:20 PM [facility] Basophils Absolute 0.13 0.00 - 0.20 K/mcL LAB HEMETOLOGY METHOD 04/03/2024 7:20 PM [facility] Immature Granulocytes Absolute 0.04(H) 0.00 - 0.03 K/mcL LAB HEMETOLOGY METHOD 04/03/2024 7:20 PM [facility] Blood Venous blood specimen / Unknown 04/03/2024 04/03/2024 6:01 PM EST us Senthil TELLEZ LAB BLOOD ORDERABLES Final Res ult Performing Organization Address [facility]/ZIP Co de Phone Number [facility] [address] [place] [address], [place] [phone] * Thyroid stimulating hormone (04/03/2024 12:00 AM EST) TSH 2.00 0.40 - 4.00 mcIU/mL LAB CHEMISTRY METHOD 04/03/2024 7:20 PM EST [facility] Blood Venous blood specimen / Unknown 04/03/2024 04/03/2024 6:01 PM EST us Senthil TELLEZ LAB BLOOD ORDERABLES Final Res ult Performing Organization Address [facility] Co de Phone Number [facility] [address] [place] [address], [place] [phone] * Thyroxine free (04/03/2024 12:00 AM EST) Free T4 0.98 0.70 - 1.80 ng/dL LAB CHEMISTRY METHOD 04/03/2024 7:20 PM EST [facility] Blood Venous blood specimen / Unknown 04/03/2024 04/03/2024 6:01 PM EST us Senthil TELLEZ LAB BLOOD ORDERABLES Final Res ult Performing Organization Address [facility]/ZIP Co de Phone Number [facility] [address] [place] [address], [place] [phone] * Lipid panel with reflex to direct LDL (04/03/2024 12:00 AM EST) Cholesterol 157 0 - 200 mg/dL LAB CHEMISTRY METHOD 04/03/2024 7:19 PM EST [facility] Triglycerides 88 0 - 150 mg/dL LAB CHEMISTRY METHOD 04/03/2024 7:19 PM EST [facility] HDL 66 >=40 mg/dL LAB CHEMISTRY METHOD 04/03/2024 7:19 PM [facility] LDL Calculated 73 0 - 100 mg/dL LAB CHEMISTRY METHOD 04/03/2024 7:19 PM [facility] VLDL Cholesterol Erich 17.6 mg/dL LAB CHEMISTRY METHOD 04/03/2024 7:19 PM [facility] Non HDL Chol. (LDL+VLDL) 91 <145 mg/dL LAB CHEMISTRY METHOD 04/03/2024 7:19 PM [facility] Chol/HDL Ratio 2.4 0.0 - 4.4 LAB CHEMISTRY METHOD 04/03/2024 7:19 PM [facility] Blood Venous blood specimen / Unknown 04/03/2024 04/03/2024 6:01 PM EST Senthil TELLEZ LAB BLOOD ORDERABLES Final Res ult [facility] [address] [place] [address], [place] [phone] * Comprehensive metabolic panel (04/03/2024 12:00 AM EST) Sodium 140 133 - 145 mmol/L LAB CHEMISTRY METHOD 04/03/2024 7:24 PM [facility] Comment:Results verified by repeat testing Potassium 5.0 3.5 - 5.5 mmol/L LAB CHEMISTRY METHOD 04/03/2024 7:24 PM [facility] Chloride 107 96 - 110 mmol/L LAB CHEMISTRY METHOD 04/03/2024 7:24 PM [facility] CO2 30 21 - 32 mmol/L LAB CHEMISTRY METHOD 04/03/2024 7:24 PM [facility] Anion Gap 3 3 - 11 LAB CHEMISTRY METHOD 04/03/2024 7:24 PM [facility] Glucose 75 70 - 100 mg/dL LAB CHEMISTRY METHOD 04/03/2024 7:24 PM [facility] BUN 12 5 - 25 mg/dL LAB CHEMISTRY METHOD 04/03/2024 7:24 PM [facility] Creatinine 0.73 0.50 - 1.10 mg/dL LAB CHEMISTRY METHOD 04/03/2024 7:24 PM [facility] eGFR 94 >=60 mL/min/1. 73m2 LAB CHEMISTRY METHOD 04/03/2024 7:24 PM [facility] Comment:Calculation based on the Chronic Kidney Disease Epidemiology Collaboration (CKD-EPI) equation refit without adjustment for race. BUN/Creatinine Ratio 16.4 LAB CHEMISTRY METHOD 04/03/2024 7:24 PM [facility] Calcium 9.8 8.5 - 10.5 mg/dL LAB CHEMISTRY METHOD 04/03/2024 7:24 PM [facility] AST (SGOT) 23 10 - 42 unit/L LAB CHEMISTRY METHOD 04/03/2024 7:24 PM [facility] ALT (SGPT) 32 10 - 60 unit/L LAB CHEMISTRY METHOD 04/03/2024 7:24 PM [facility] Alkaline Phosphatase 64 42 - 121 unit/L LAB CHEMISTRY METHOD 04/03/2024 7:24 PM [facility] Total Protein 7.0 6.0 - 8.0 g/dL LAB CHEMISTRY METHOD 04/03/2024 7:24 PM [facility] Albumin 3.9 3.2 - 5.0 g/dL LAB CHEMISTRY METHOD 04/03/2024 7:24 PM [facility] Total Bilirubin 0.6 0.0 - 1.4 mg/dL LAB CHEMISTRY METHOD 04/03/2024 7:24 PM [facility] Blood Venous blood specimen / Unknown 04/03/2024 04/03/2024 6:01 PM EST Senthil TELLEZ LAB BLOOD ORDERABLES Final Res ult [facility] H[facility] LAB [address] [place] [address], documented in this encounter Visit Diagnoses Diagnosis Chronic fatigue, unspecified Mixed hyperlipidemia Encounter for general adult medical examination with abnormal findings Type 2 diabetes mellitus without complications (CMS/HCC V24, CMS/HCC V28) documented in this encounter Care Teams Quarter Seamer Relationship Specialty Start Date End Date Guille More MD [address] [address] PCP - General Internal Medicine 01/19/24 documented as of this encounter
--- OUTSIDE RECORDS SUMMARY | 2025-02-13 05:23 | XMS_ITS | Patient Health Record ---
Author Organization [facility] Address [address] [facility] [place] [place] [address] Care Team Providers Care Web Marketing Specialist Name Role Phone Guille More MD Primary Care Provider Stefanie Sena Unavailable [phone] Allergies Allergen (clinical drug ingredient) Drug/Non Drug [...] Negative Encounters Encounter Location Date Provider Diagnosis [facility] [place] [address] [place] [address] 07/06/2024 Stefanie Boston Plan Of Treatment No Information Insurance Providers Payer Name Payer Address Payer Phone Subscriber Number Group Number Insured Name Patient Relationship to Insured Coverage Start Date Coverage End Date [facility] [address] [address] [place] [address] [phone] [id number] Karen Kamara Self - patient is the insured Medical (General) History Medical History History ICD Code asthma Back,Hip,and Knee pain type II diabetes Barretts Neuropathy
--- NOTE | 2025-02-13 06:19 | ED.WOUNDLAC ---
HPI - Wound/Laceration General Chief Complaint: Wound/Laceration Stated Complaint: Wound Time Seen by Provider: 02/13/25 06:14 Source: patient Mode of arrival: wheelchair Limitations: no limitations History of Present Illness ED Provider: HPI narrative: 59-year-old woman presenting with continued bleeding over the left groin site status postat the [facility] end[facility] center on 02/12/2025, states has been bleeding from the site continuously since the procedure, she kept calling the providers and they told her to keep holding pressure but now has been holding pressure intermittently for the past 24 hours continues to ooze. No other issues reported. With pressure bleeding has been abated but without pressure she starts to ooze again. Related Data Home Medications ?Medication ?Instructions ?Recorded ?Confirmed melatonin 5 mg capsule mg PO 07/21/22 01/23/25 acetaminophen 500 mg tablet 500 mg PO Q6H PRN 06/12/24 01/23/25 (Tylenol Extra Strength) aspirin 81 mg tablet,delayed 81 mg PO DAILY 06/12/24 01/23/25 release cholecalciferol (vitamin D3) 50 50 mcg PO DAILY 06/12/24 01/23/25 mcg (2,000 unit) capsule insulin lispro 100 unit/mL subcut 06/12/24 01/23/25 subcutaneous pen (Humalog KwikPen (U-100) Insulin) rivaroxaban 20 mg tablet (Xarelto) 20 mg PO DAILY 06/12/24 01/23/25 blood-glucose sensor (FreeStyle #1 ea 01/14/25 01/23/25 Garo 2 Plus Sensor device) flash glucose sensor (FreeStyle #1 ea 01/14/25 01/23/25 Garo 2 Sensor kit) insulin glargine 100 unit/mL 36 unit subcut DAILY 01/14/25 01/23/25 subcutaneous cartridge pregabalin 75 mg capsule 75 mg PO BEDTIME 01/14/25 01/23/25 mecobalamin (vitamin B12) 1,000 1,000 mcg PO DAILY 01/23/25 01/23/25 mcg chewable tablet Previous Rx's ?Medication ?Instructions ?Recorded atorvastatin 20 mg tablet 20 mg PO DAILY #90 tabs 01/14/25 fluticasone propionate 50 1 spray intranasal BID #16 grams 01/14/25 mcg/actuation nasal spray,suspension (Allergy Relief (fluticasone)) loratadine 10 mg capsule (Allergy 10 mg PO DAILY #90 caps 01/14/25 Relief (loratadine)) Allergies Allergy/AdvReac Type Severity Reaction Status Date / Time erythromycin base Allergy Unknown VOMITING Verified 02/13/25 02:48 (ERYTHROMYCIN BASE) Review of Systems Constitutional: Constitutional: Reports as per HPI [facility] Past Medical History Medical History (Updated 02/13/25 @ 06:27 by Phuc Tse DO) Tobacco use disorder Diabetic foot ulcer Diabetic polyneuropathy PAD (peripheral artery disease) Neuropathy High cholesterol Barretts syndrome Diabetes Surgical History (Updated 01/24/25 @ 08:58 by Lillie Murillo CNM) H/O breast biopsy History of colonoscopy (~05/06/21) Family History Family History Father Liver cirrhosis Pre-diabetes Mother Heart problem Cancer of kidney Sister Breast cancer, Onset Age: 55 Social History Social History (Updated 01/24/25 @ 09:02 by Lillie Murillo CNM) Housing: House Alcohol intake: current Alcohol intake frequency: a few times a month Patient Tobacco Use Status: Current everyday Tobacco user Cigarettes Per Day: 10 e-Cigarette/Vaping Use: Currently Using Advance Directives: No Advance Directives Information Provided: Yes service: No Current occupational status: disabled Cognitive needs: No Hearing needs: No Vision needs: Yes (reading glasses) Physical Exam Exam: Exam: ?General: ??looks age appropriate ?CV: RRR, no obvious murmurs appreciated ?Resp: ?No wheezing rales rhonchi no stridor moving air well Abd: ?Bowel sounds are present, no tenderness no rebound no rigidity MSK: FROM, strength 5/5 all extremities Skin: Stab incision left groin, no hematomas no pulsatile masses, slow bleeding, distal pulses present soft compartments ?Neuro: ?Alert and oriented x3, moving upper and lower extremities symmetrically, no obvious facial asymmetry noted, cranial nerves 2-12 intact Vital Signs: Vital Signs: Last Vital Signs Temp 97.6 F 02/13/25 05:13 Pulse 68 02/13/25 05:13 Resp 16 02/13/25 05:13 BP 105/54 L 02/13/25 05:13 Pulse Ox 97 02/13/25 05:13 O2 Del Method Room Air 02/13/25 05:13 BMI result Body Mass Index 23.5 Medical Decision Making Medical Decision Making [facility] Narrative: 6:22 AM 02/13/2025 (Dr. Phuc Tse): Had a stenting procedure, its minimal bleeding better with the pressure without pressure continues to ooze the incision has opened up, we will inject with lidocaine and apply a [id number] stitch, there was no compartment syndrome, no vascular issues distally otherwise, this was not significant hemorrhage she is not unstable, Differential Diagnosis Differential Diagnoses: The differential diagnosis associated with the presentation includes (Hematoma, pseudoaneurysm, compartment syndrome, cellulitis, anemia, vascular compromise) Admission/Observation Consideration of admission/observation: Escalation of care including admission/observation considered Lab Data [facility] Lab Attestation statement: I reviewed the patient's lab results. 02/13/25 03:52 02/13/25 03:52 Labs: Lab Results 02/13/25 Range/Units 03:52 WBC 16.5 H (4.8-10.8) X10*3/uL RBC 4.20 (4.20-5.50) X10*6/uL Hgb 13.3 (12.0-16.0) g/dl Hct 38.4 (37.0-47.0) % MCV 91.4 (80.0-98.0) fL MCH 31.7 (27.0-33.0) pg MCHC 34.6 (31.0-35.0) g/dl RDW 12.5 (11.0-16.0) % Plt Count 296 (160-400) X10*3/uL MPV 9.8 (9.4-12.3) fL Immature Gran % (Auto) 0.5 H (0.0-0.4) % Neut % (Auto) 64.5 (45-73) % Lymph % (Auto) 25.0 (20-40) % [place] % (Auto) 7.0 (2-11) % Eos % (Auto) 2.2 (0-4) % Baso % (Auto) 0.8 (0-2) % Lymph # (Auto) 4.1 (1.2-4.9) X10*3/uL [place] # (Auto) 1.2 (0.1-1.2) X10*3/uL Eos # (Auto) 0.4 (0.0-0.4) X10*3/uL Baso # (Auto) 0.1 (0.0-0.2) X10*3/uL Abs Immat Gran (auto) 0.09 H (0.00-0.03) X10*3/uL Absolute Neuts (auto) 10.7 H (2.0-8.3) x10*3/uL Absolute Nucleated RBC 0.000 (0.0-0.012) X10*3/uL Nucleated RBC % (auto) 0.0 (0.0-0.2) /100WBC Sodium 141 (135-145) mmol/L Potassium 3.7 D (3.3-5.1) mmol/L Chloride 109 H (96-108) mmol/L Carbon Dioxide 24 (22-29) mmol/L Anion Gap 12 (12-20) BUN 12 (9-16) mg/dL Creatinine 0.71 (0.5-1.4) mg/dL Estim Creat Clear Calc 74.8 Estimated GFR > 60 Random Glucose 144 H (60-115) mg/dL Calcium 9.1 D (8.4-10.2) mg/dL Procedures Laceration Laceration 1: Site: other (Groin) Side (If applicable): left Size (cm): 0.5 Description: linear and clean Depth: simple, single layer Local Anesthetic: lidocaine 1% and with epi Amount of anesthesia used (mL): 5 Skin layer closed with: nylon Size (cm): 4-0 Discharge Plan Discharge Clinical Impression: Bleeding at insertion site Additional Instructions: Please call the surgical center and let them know that you were seen in the ER and that you have a stitch in the area now, the surgeons need to be updated Suture we will need to be removed by them and reassessed by them, if bleeding persists continue holding pressure get in touch with them or come back to the ER Prescriptions: No Action melatonin 5 mg capsule PO insulin glargine 100 unit/mL cartridge 36 unit subcut DAILY insulin lispro [Humalog KwikPen Insulin] 100 unit/mL insulin pen subcut cholecalciferol (vitamin D3) 50 mcg (2,000 unit) capsule 50 mcg PO DAILY Xarelto 20 mg tablet 20 mg PO DAILY acetaminophen [Tylenol Extra Strength] 500 mg tablet 500 mg PO Q6H PRN aspirin 81 mg tablet,delayed release (DR/EC) 81 mg PO DAILY pregabalin 75 mg capsule 75 mg PO BEDTIME (DME) FreeStyle Garo 2 Plus Sensor Device See Rx Instructions .ROUTE DAILY Qty: 1 Rx Instructions: As directed (DME) FreeStyle Garo 2 Sensor Kit See Rx Instructions .ROUTE .MEDSUPPLY Qty: 1 Rx Instructions: As directed fluticasone propionate [Allergy Relief (fluticasone)] 50 mcg/actuation spray,suspension 1 spray intranasal BID Qty: 16 5RF Rx Instructions: administer into each nostril Allergy Relief (loratadine) 10 mg capsule 10 mg PO DAILY Qty: 90 0RF atorvastatin 20 mg tablet 20 mg PO DAILY Qty: 90 3RF mecobalamin (vitamin B12) 1,000 mcg tablet,chewable 1,000 mcg PO DAILY Print Language: Fijian
[2025-02-13 07:12] VITALS: BP 105/54; PULSE 68; RESP 16; TEMP 36.4; O2SAT 97
== END 2025-02-13 07:12 | disposition home or self-care (01) ==
PROVIDERS: Emergency Provider Emergency Medicine; PCP Internal Medicine
DX: L76.22 Postprocedural hemorrhage of skin and subcutaneous tissue following other procedure (principal); E11.9 Type 2 diabetes mellitus without complications; F17.210 Nicotine dependence, cigarettes, uncomplicated
CPT/HCPCS: 12001; 36415; 80048; 85025; 99283; 99284

== ENCOUNTER 2025-02-18 11:30 | Outpatient (RCR) | payer OTHER, SELFPAY ==
[2024-09-13 12:16] LABS: MANUAL DIFF FLAG NO
[2024-09-13 12:39] LABS: Hematocrit 38.6 % (37.0-47.0); Hemoglobin 13.1 g/dl (12.0-16.0); Imm Gran Abs Auto 0.06 X10*3/uL (0.00-0.03); Imm Gran Pct Auto 0.5 % (0.0-0.4); Lymphocytes Absolute Auto 4.4 X10*3/uL (1.2-4.9); Mean Corpuscular HGB Conc 33.9 g/dl (31.0-35.0); Mean Corpuscular Hemoglobin 31.6 pg (27.0-33.0); Mean Corpuscular Volume 93.0 fL (80.0-98.0); NRBC Abs Auto 0.000 X10*3/uL (0.0-0.012); NRBC Pct Auto 0.0 /100WBC (0.0-0.2); Platelet Count 285 X10*3/uL (160-400); Red Blood Count 4.15 X10*6/uL (4.20-5.50); White Blood Count 12.0 X10*3/uL (4.8-10.8)
[2024-09-13 13:00] LABS: Total Hemoglobin (HGBA1C) 3519.6872 umol/L
[2024-09-13 13:07] LABS: Prealbumin 21.0 mg/dL (20-40)
[2024-09-13 13:11] LABS: Albumin Level 3.9 g/dL (3.5-5.0); Anion Gap 11 (12-20); Blood Urea Nitrogen 14 mg/dL (9-16); Calcium 10.2 mg/dL (8.4-10.2); Carbon Dioxide 29 mmol/L (22-29); Chloride 106 mmol/L (96-108); Estimated Glomerular Filt Rate > 60; Potassium 5.3 mmol/L (3.3-5.1); Sodium 141 mmol/L (135-145)
[2024-09-13 13:17] LABS: Erythrocyte Sedimentation Rate 23 MM/HR (0-20)
[2024-09-13 13:21] LABS: Thyroid Stimulating Hormone 1.95 uIU/mL (0.32-4.0)
[2024-11-23 10:43] LABS: Erythrocyte Sedimentation Rate 17 MM/HR (0-20)
[2025-01-04 14:11] LABS: Erythrocyte Sedimentation Rate 15 MM/HR (0-20)
--- NOTE | ~2025-02-18 | XR_ITS ---
EXAMINATION: XR FOOT, RIGHT CLINICAL INFORMATION: R/O Osteo COMPARISON: 05/03/2024. TECHNIQUE: AP, lateral, and oblique views of the right foot. FINDINGS: Of note, there are erosive changes in the fifth MTP joint with associated focal osteopenia and permeative periarticular bone changes. Findings are suspicious for osteomyelitis and septic arthropathy of the fifth MTP joint. There appears to be an overlying lateral plantar soft tissue ulceration. There is no subcutaneous emphysema or radiopaque foreign body seen. Otherwise, there is diffuse osteopenia of the osseous structures. No additional bony abnormality or fracture. No additional regions of permeative bony change. There is normal alignment. There is normal plantar arch. There are degenerative changes in the tibiotalar joint, incompletely imaged on this exam. No additional soft tissue abnormality. XR/XR foot RT min 3V IMPRESSION: 1. Permeative erosive changes of the periarticular structures of the fifth MTP joint, consistent with septic arthropathy/osteomyelitis. There is an abutting lateral/plantar ulceration. Electronically signed by: Justo Estrada MD 11/23/2024 10:26 AM EDT
== END 2025-02-18 16:56 | disposition home or self-care (01) ==
LOC: HO.WCC 11:30
PROVIDERS: Surgery; Visit Provider Surgery Surgical Oncology
DX: E10.51 Type 1 diabetes mellitus with diabetic peripheral angiopathy without gangrene (principal); L84 Corns and callosities; F17.210 Nicotine dependence, cigarettes, uncomplicated; Z09 Encounter for follow-up examination after completed treatment for conditions other than malignant neoplasm; Z86.31 Personal history of diabetic foot ulcer
CPT/HCPCS: 11042; 11043; 11044; 36415; 73630; 80048; 82040; 83036; 84134; 84443; 85025; 85652; 86140; 87070; 87073; 87077; 87186; 87205; 88304; 88305; 88311; 97597; 99212